=== PATIENT | male | born 1970 ===

== ENCOUNTER 2023-11-27 15:52 | Inpatient (IN) | payer BC, SELFPAY ==
[2023-11-27] VITALS (11 sets, daily range): BP systolic 111–135; BP diastolic 49–94; BMI 32.3
[2023-11-27 11:10] LABS: % Basophils 0.7 % (0-2); % Eosinophils 4.4 % (0-6); % Immature Granulocytes 1.1 % (0-0.5); % Lymphocytes 11.2 % (20.5-51.1); % Neutrophils 79.6 % (42.2-75.2); Absolute Basophils 0.1 10^3/uL (0-0.2); Absolute Eosinophils 0.3 10^3/uL (0-0.7); Absolute Immature Granulocytes 0.1 10^3/uL (0-0.05); Absolute Lymphocytes 0.8 10^3/uL (1.2-3.4); Absolute Monocytes 0.2 10^3/uL (0.1-0.6); Absolute Neutrophils 5.9 10^3/uL (1.4-6.5); Hematocrit 34.8 % (39.0-52.0); Hemoglobin 12.1 g/dL (13.0-18.0); Mean Corp Hgb Conc. 34.8 g/dL (33.0-37.0); Mean Corpuscular Hgb 28.5 pg (27.0-31.0); Mean Corpuscular Volume 81.9 fL (80.0-94.0); Mean Platelet Volume 10.3 fL (7.4-10.4); Nucleated Red Blood Cells % 0 % (-); Platelet Count 213 10^3/uL (130-400); Red Blood Cell Count 4.25 10^6/uL (4.70-6.10); Red Cell Dist. Width 14.6 % (11.5-14.5); White Blood Cell Count 7.4 10^3/uL (4.8-10.8)
--- NOTE | 2023-11-27 11:12 | ED.GENMED ---
History of Present Illness
General
Chief Complaint: Change in Mental Status
Source: patient and ambulance crew
Time Seen by Provider: 11/27/23 10:39
Travel History
Have you had any contact with someone who has COVID-19?: No
Do you have any symptoms of coronavirus? Fever > 100 degrees, chills, cough, shortness of breath, sore throat, loss of taste or smell, muscle aches, or headache?: No
History of Present Illness
History of Present Illness:
53-year-old male brought to the emergency room by ambulance for altered mental status. Patient is not really able to provide any significant history. He answers occasional questions but other questions he completely does not respond to. Unclear
the timeframe of symptomatology. Patient was hospitalized here in September for what appeared to be similar symptoms. No clear cause was identified but the patient improved over time. It appears the impression of the providers at that time was
depression and perhaps medication use. Patient does have a history of alcohol abuse. He has recently gone through rehab. Patient unable to tell us what medications he is taking presently. At times the patient seems to be fairly impulsive. Noted
also to have some facial tremors from time to time.
Past History
Past History
ED Past Medical History: Psychiatric (depression, anxiety) and Other (alcoholism)
Social History
Alcohol: Chronic alcoholic
Living: alone
Family History
Family History: Other (reviewed and non-contributory)
Phy Exam
Physical Exam
Physical Exam:
General: Awake, Alert, patient is oriented to person place and time actually. He seems somewhat disconnected and flat. Either cannot or chooses not to answer many questions. Disheveled appearing.
Vitals: Afebrile, normal heart rate
Head: Atraumatic
Eyes: Pupils equal, EOMI
Throat: Airway intact, no exudates, mildly dry mucosa
Neck: Trachea midline
Lungs: Clear and equal b/l
Heart: Regular rate, no murmurs
Abd: Soft, Nontender, No pulsatile mass
Neuro: Cranial nerves intact, muscle strength equal bilaterally, cerebellar exam normal
Skin: Warm, dry, no rash
Extremities: pulses equal b/l, no edema
Course
Orders/Labs/Results
Orders:
Orders
11/27/23 10:40
Electrocardiogram (*1) Urgent
Reason for Study: Chest Pain
Cardiac Monitoring- Treatment ONCE
IV Insert/Care/Rem.- Treatment PRN
11/27/23 10:41
EKG- Treatment ONCE
11/27/23 10:55
Acetaminophen Urgent
Comment: ADD ON
Alcohol Urgent
Complete Blood Count/With Diff Urgent
Comprehensive Metabolic Panel Urgent
Salicylate Urgent
Comment: ADD ON
11/27/23 10:56
COVID-19 Antigen Urgent
Source: Nasal Swab
Influenza A+B Rapid Molecular Urgent
BILLIE Source: Nasal Swab
Specimen Description:
11/27/23 11:10
Add On- LAB Urgent
Tests Added?: alcohol
11/27/23 11:11
CT Head W/o Iv Contrast Urgent
Comment:
Reason For Exam: altred mental status
Lorazepam [Ativan] 1 mg IV NOW STA
11/27/23 11:37
Add On- LAB Urgent
Tests Added?: acetaminophen level, aspirin level
11/27/23 11:42
DIETARY CONSULT Routine
Reason for Consult: not alert
Speech Screening from [facility] Routine
11/27/23 12:49
Fentanyl, Urine Urgent
Urinalysis Reflex To Culture Routine
Date Specimen was Collected: 11/27/23
Time Specimen was Collected: 12:49
Comment: ADD ON
Urine Drug Abuse Screen Urgent
Date Specimen was Collected: 11/27/23
Time Specimen was Collected: 12:49
11/27/23 15:11
MR Brain Without Contrast Routine
Comment:
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
Recent pill cam endoscopy?: No
11/27/23 15:15
Vitamin B12 IN AM
11/27/23 15:33
Admit/Transfer Patient As Directed
Co-Sign Provider:
Level of Care: Inpatient admission
Assign to:: Telemetry
Physician / Group: Yokasta Patricio oleists
Diagnosis: TME, unclear etiology
Reason for Telemetry: Other
Other Reason for Telemetry: hx of bradycardia
Date to Stop Telemetry: 11/29/23
Time to Stop Telemetry: 11:00
Reason for Hospitalization: TME, unclear etiology. Elevated LFTs
Expected length of stay greater than two midnights?: Yes
ELOS- Estimated Length of Stay in days: 2
I certify the patient meets the requirements for IP care: Yes
11/27/23 15:34
Code Status As Directed
Resuscitation Status: Full Code
11/27/23 15:41
US Abdomen Complete/Upper Routine
Comment:
Reason For Exam: elevated LFTs
11/27/23 15:41
Add On- LAB Routine
Tests Added?: UA reflex to culture (to UDS sample)
NEUROLOGY CONSULT Routine
Consulting Provider: Aime Woo
Was physician already notified: Yes
PSYCHIATRY CONSULT Routine
Consulting Provider: Jus Bridges
Was physician already notified: Yes
11/27/23 16:00
FOLic ACID [Folvite] 1 mg 0.9% Sodium Chloride 50 ml [Nss] 50 ml IV Q24H
Thiamine Injection 500 mg 0.9% Sodium Chloride 250 ml [Nss] 250 ml IV Q8
11/28/23 06:00
Ammonia IN AM
11/29/23 11:00
DC Protocol for Telemetry ONCE
Abnormal Lab Results
11/27/23 11/27/23
10:55 12:49
RBC 4.25 L 10^6/uL
(4.70-6.10)
Hgb 12.1 L g/dL
(13.0-18.0)
Hct 34.8 L %
(39.0-52.0)
RDW 14.6 H %
(11.5-14.5)
Abs Immat Gran (auto) 0.1 H 10^3/uL
(0-0.05)
Absolute Lymphs (auto) 0.8 L 10^3/uL
(1.2-3.4)
Immature Gran % 1.1 H %
(0-0.5)
Neutrophils % 79.6 H %
(42.2-75.2)
Lymphocytes % 11.2 L %
(20.5-51.1)
Sodium 134 L mmol/L
(135-145)
BUN 23 H mg/dl
(9-20)
Calcium 8.1 L mg/dl
(8.4-10.2)
AST 148 H U/L
(17-59)
ALT 509 H* U/L
(0-50)
Total Protein 6.1 L g/dl
(6.3-8.2)
Salicylates < 1.0 L mg/dl
(2.0-20.0)
Urine Opiates Screen Positive H
(Negative)
Acetaminophen < 10 L ug/ml
(10-30)
Ur Tricyclics Screen Positive H
(Negative)
U Marijuana (THC) Screen Positive H
(Negative)
11/27/23 10:55
11/27/23 10:55
Vital Signs
Initial and Last Documented VS:
Initial Vital Signs
Temp Pulse Resp BP Pulse Ox
99 F 76 18 119/81 95
03/11/24 10:42 11/27/23 10:42 11/27/23 10:42 11/27/23 10:42 11/27/23 10:42
Last Documented Vital Signs
Temp Pulse Resp BP Pulse Ox
99 F 77 17 120/49 98
11/27/23 10:42 11/27/23 14:20 11/27/23 14:20 11/27/23 14:03 11/27/23 14:20
MDM/Problems Addressed
Differential Diagnosis Includes:
Medication overdose, medication side effect, electrolyte abnormality, acute psychosis, complex seizures
MDM/Problems Addressed:
Patient's family here in the room. They note the patient had a bottle of by getting in his room. Unclear if he took any. Patient also mention of him he was taking a 'herbal substance' Kratom. I did check [employer] and it notes that this
medication can cause opiate like effects but can also cause stimulant effects as well as stuporous nests and confusion. Discussed the patient's presentation with poison center. No specific recommendations. Given his elevated ALT at 500 recommend
repeating this in 6 hours. Consider late presentation acetaminophen overdose if this continues to rise.
Patient will be hospitalized to the hospitalist service. Neurology consultation requested as well.
*Radiology
Radiology exam reviewed: radiology read reviewed
*Pulse Oximetry
Patient hypoxic: no
*EKG
Interpreted by ED Provider?: Yes
Interpretation: normal
Rate: normal
Rhythm: sinus
[place]: normal axis
Interval: normal interval
QRS Pattern: normal QRS
Ischemia: no ischemia
*Chemical Librarian Interpretation
Rate: normal
Interpretation: normal
Rhythm: sinus
*Critical Care Note
Total Time (30-74mins, 75-104mins- exclusive of procedures): 35 min
comment:
Critical care statement: A total of 35 minutes of critical care time was provided for this patient. This includes management of unstable vital signs, evaluation of the patient at bedside, reviewing the patient's pertinent medical records, discussion
with consultants, review of old EKGs and review of pertinent medical records. This time with separate from time utilized to perform the aforementioned documented procedures
ED Attending Note
-
Portions of this chart may have been created with voice recognition software.� Occasional wrong word or��sound alike� substitutions may have occurred due to the inherent limitations of voice recognition software.
Discharge Plan
Departure
Patient Disposition: Admit
Date of Disposition: 11/27/23
Time of Disposition: 13:58
Admit to: IMU
Presentation/result/management discussed w/ accepting MD/DO: Hospitalist
Condition: Serious
Discharge Problem:
Toxic metabolic encephalopathy
Prescriptions:
No Action
escitalopram oxalate 20 mg tablet
20 mg PO DAILY
doxepin 10 mg capsule
30 mg PO HS
propranolol 20 mg Tablet
20 mg PO QIDPRN PRN (Reason: anxiety)
bupropion HCl 300 mg tablet extended release 24 hr
300 mg PO DAILY
omeprazole 40 mg Capsule,Delayed Release(Dr/Ec)
40 mg PO DAILY
amlodipine [Norvasc] 10 mg Tablet
10 mg PO DAILY
Caffeine With L-Thaenine
100 mg PO DAILY
Red Vein Maengda Kratom
72 g PO DAILY
acamprosate 333 mg Tablet,Delayed Release (Dr/Ec)
333 mg PO TID
Referrals:
Haider Anderson MD [Family Provider] -
Interventions
Interventions:
*Risk Screen - Suicide Last Done: 11/27/23 10:42
*General Assessment Last Done: 11/27/23 13:02
*Neglect/Abuse Screening Last Done: 11/27/23 10:42
ED- Fall Risk Assessment Last Done: 11/27/23 11:44
*ED COVID-19 Vaccine History Last Done: 11/27/23 13:02
ED- Pulmonary Assessment Last Done: 11/27/23 11:45
ED- Neurological Assessment Last Done: 11/27/23 11:39
ED Swallowing Screen Last Done: 11/27/23 11:39
[2023-11-27 11:26] LABS: ALT (SGPT) 509 U/L (0-50); AST (SGOT) 148 U/L (17-59); Albumin 3.6 g/dl (3.5-5.0); Alkaline Phosphatase 112 U/L (38-126); Blood Urea Nitrogen 23 mg/dl (9-20); Calcium 8.1 mg/dl (8.4-10.2); Carbon Dioxide 26 mmol/L (22-30); Chloride 101 mmol/L (98-107); Estimated Creatinine Clearance 82 ml/min; Glucose 78 mg/dl (70-99); Potassium 3.6 mmol/L (3.5-5.1); Sodium 134 mmol/L (135-145); Total Bilirubin 0.9 mg/dl (0.2-1.3); Total Protein 6.1 g/dl (6.3-8.2); eGFR > 60.00
[2023-11-27 11:27] LABS: COVID-19 Antigen Negative (Negative)
[2023-11-27] MEDS: ATIVAN 1 MG IV ×3 (11:28→19:19)
[2023-11-27 11:41] LABS: Alcohol None Detected
--- NOTE | 2023-11-27 11:48 | PHANOTE ---
med rec note- called bath on file, a man answered the phone and asked if i was calling for tomy (Luis), yes and asked him to read his home medication bottles, patient has no ecw and using [facility] in [facility]
[2023-11-27 12:15] LABS: Acetaminophen < 10 ug/ml (10-30)
[2023-11-27 12:22] LABS: Salicylate < 1.0 mg/dl (2.0-20.0)
--- NOTE | 2023-11-27 12:40 | EDRN ---
Pt got up and moving all over, placing leg over and very active. Pt told to relax and now calm.
--- NOTE | 2023-11-27 12:52 | EDRN ---
Mother and sister just came and are in room w/ pt at this time. One to One continues w/ Ashvin. Pt having periods of increased movement then stopping. Pt mumbling in answer to questions and mumbling conversation.
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
[2023-11-27 13:27] LABS: Marijuana Positive (Negative); Opiates Positive (Negative); Tricyclic Antidepressants Positive (Negative)
[2023-11-27 13:28] LABS: Amphetamines Negative (Negative); Barbiturates Negative (Negative); Benzodiazepines Negative (Negative); Buprenorphine Negative (Negative); Cocaine Negative (Negative); Methadone Negative (Negative); Methamphetamines Negative (Negative); Phencyclidine Negative (Negative)
[2023-11-27 13:46] LABS: Fentanyl, Urine Negative (Negative)
--- NOTE | 2023-11-27 14:22 | EDRN ---
Pt attempting to get OOB thinking pt wanting to go to [facility]. This RN got a commode and got pt OOB w/ max help of Ashvin ED PCT and maximum assist. Pt attempting to get up periodically and having to constantly redirect pt. Pt unable to sit still on
commode. Pt very unsteady on his feet and a true risk for falling. Pt had to be guided back to stretcher w/ strong insistence. Pt grabbing at this nurse's and ED PCT's arms in aggressive manner. Pt not safe to get OOB at this time.
--- NOTE | 2023-11-27 14:24 | EDRN ---
Dr. Major in room w/pt at this time.
--- NOTE | 2023-11-27 14:53 | EDRN ---
Dr. Woo in room w/ pt.
--- NOTE | 2023-11-27 14:57 | HPS.HSE ---
Family Physician
-
Family Physician: Haider Anderson
Chief Complaint
-
change in mental status
History of Present Illness
53 y/o M, hx of HTN, hx of Alcohol abuse in the past presents to ER with altered mental status. Patient was brought in by his mother and brother whom he lives with. Patient not able to provide history. At times he can answer some questions but other
times he cannot. Per family, patient was doing well back in August but unfortunately the father . Leading up the , patient was engaged and helpful but shortly after burial, patient was admitted to [facility] with change in MS,
attributed to Kratom plus other medications. Patient had slow improvement during that hospitalization and was discharged to [facility]hab. At IP rehab - he was prescribed meds which were stopped in hospital (doxepin, Propranolol, Bupropion). Patient was
released home and family reports seemingly ok. Day to day patient lives in basement and family is unsure of what meds/substances he purchases but have found packages of CBD gummies and Kratom in the home. This past week, starting Monday, patient
reported URI symptoms - family provided Mucinex with adequate relief of symptoms. Patient also had headache that time. He started to show change in mentation around Monday. No seizure like activity, no focal weakness, vision or speech changes
were noted by family. had a few bouts of diarrhea but no abdominal pain. No fever/chills.
Patient brought to ER and found in UDS to have Doxepin, MJ and opiates. Patient is not on opiates and had a bottle of Vicodin in his belongings - belongs to his mother. Family unsure if he is ingesting or how much. Also found to have elevated LFTs -
patient admitted for further eval.
Medical History
Past Medical History
Past Medical History: Reports Other (HTN, hx of Alcohol abuse)
Past Surgical History: Reports None
Social History
Tobacco: Non-smoker
Alcohol: Chronic Alcoholic
Drug: Other (CBD gummies, Kratom)
Personal: (living separately, 2 kids)
Living: With Family (mother, brother)
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
Family History
Family History: Not pertinent
Allergies / Home Medications
Allergies reflects when Allergies were last updated in [employer].
Home Medications with original date entered in [employer]
Allergy/Medication List:
Allergies
Allergy/AdvReac Type Severity Reaction Status Date / Time
No Known Allergies Allergy Unverified 11/27/23 10:41
Home Medications
escitalopram oxalate 20 mg tablet 20 mg PO DAILY Depression 09/29/23
Caffeine With L-Thaenine 100 mg PO DAILY 11/27/23
Red Vein Maengda Kratom 72 g PO DAILY 11/27/23
acamprosate 333 mg tablet,delayed release 333 mg PO TID 11/27/23
amlodipine 10 mg tablet (Norvasc) 10 mg PO DAILY 11/27/23
bupropion HCl 300 mg 24 hr tablet, extended release 300 mg PO DAILY 11/27/23
doxepin 10 mg capsule 30 mg PO HS 11/27/23
omeprazole 40 mg capsule,delayed release 40 mg PO DAILY 11/27/23
propranolol 20 mg tablet 20 mg PO QIDPRN PRN anxiety 11/27/23
Review of Systems
-
A 12 point ROS was completed and negative except as noted: Yes
Physical Exam
Vital Signs
Vital Signs
Temp Pulse Resp BP Pulse Ox
99 F 77 17 120/49 98
11/27/23 10:42 11/27/23 14:20 11/27/23 14:20 11/27/23 14:03 11/27/23 14:20
Physical Exam
General: No Apparent Distress and Other (flat/disconnected)
HEENT: NormoCephalic and Anicteric
Respiratory: Clear; No Wheezes, Rales or Rhonchi
Cardiac: S1/S2 and Regular Rhythm
GI: Soft, Non Tender and Non Distended
Neuro: Awake, Alert and Oriented (not oriented)
Psych: Agitated (trying to get out of bed)
Laboratory Results
-
11/27/23 10:55
11/27/23 10:55
Laboratory Results
Total Bilirubin 0.9 mg/dl (0.2-1.3) 11/27/23 10:55
AST 148 U/L (17-59) H 11/27/23 10:55
ALT 509 U/L (0-50) H* 11/27/23 10:55
Alkaline Phosphatase 112 U/L (38-126) 11/27/23 10:55
Data Reviewed
-
Lab Data: Labs Reviewed by me, Discussed with Physician (Neurology), Discussed with Nurse and Discussed with Patient
Impression/Plan
-
Assessment:
Change in mental status
TME likely in setting of substances (CBD Gummies, Kratom)
- OBS admit
- stop CBD gummies, Kratom - advised family to confiscate items at home, consider contacting [employer] to stop shipments
- UDS + for TCA, opiates, MJ consistent with known/suspected abuse per HPI
- consider EEG
- check MRI brain w and w/o contrast. CT head was negative.
- check UA/Ucx. if febrile, broaden workup to include Bcx and CXR. D/w Neuro no indication for LP.
- Neurology consulted
- IV thiamine, and IV Folate added
Elevated LFTs
- Vicodin bottle found in belongings, unknown ingestion
- ER d/w Toxicology; could represent delayed acetaminophen poisoning
- repeat LFTs in 6 hours; if rising, consider GI Eval/NAC
- trend LFTs daily
- check US Abdomen
? Depression
- family notes his initial episode started after of father
- hold Doxepin/Lexapro/Bupropion
- consult psych
Essential HTN
- continue Norvasc
- Propranolol previously stopped in hospital for bradycardia; hold for now
GERD - PPI
DVT ppx: Lovenox
Code: Full
--- NOTE | 2023-11-27 15:02 | CON.NEURO4 ---
Consultation - Neurology 4
-
CONSULTING PHYSICIAN: Alina Woo
REFERRING PHYSICIAN: ER
DICTATED BY: Alina Woo
DATE/TIME OF REQUEST: 11/27/23
DATE/TIME OF CONSULTATION: 11/27/23
Reason for Consultation: Encephalopathy
History of Present Illness:
fo patient is a 53-year-old male with past medical history of former alcohol abuse, depression, previous hospitalization in September for what was suspected to be most likely toxic metabolic encephalopathy possibly with toxic ingestion involved
presented to hospital with encephalopathy.
Patient's family at the bedside said that he did improve after this hospitalization and did go to a rehab for substance use. Had been living on his home afterwards and had been taking medications on his own. It was noticed by his that there
was Kratom bottle in a trash can and besides this otherwise patient seem to be taking his scheduled medications.
Patient's mental status seem to change around 8 days ago and over the past couple of days has had bizarre behaviors, has remained awake and not drowsy lethargic, speaks in short sentences and has not been showering or doing normal activities of
daily living.
No weakness of the face or limbs has been known patient has been able to walk around okay.
His family is notes that they have not suspected he has been drinking any alcohol.
Urine drug screen positive for TCA's, THC, opiates.
Past Medical History: Former alcohol abuse, depression, hypertension
Surgical History: None
Social History: , currently living with extended family, his father passed last winter, former alcohol abuse, no tobacco, history of Kratom use
Family History: Non-contributory
Review of Symptoms:
Unable to obtain with mental status
Physical Exam:
Middle-age man obese appears confused no acute distress no signs of head or neck trauma no meningismus eyes are clear oropharynx is clear neck with no masses heart rate regular breathing unlabored abdomen is obese soft nontender no lower extremity
edema
Neurologic Examination:
Patient is awake and alert he does say his name and obey some simple commands intermittently, he occasionally has some random purposeless movements moving around in bed, at 1 point he appears to be blowing air in my face and demonstrating some
bizarre behavior, he does track the examiner and attends to the examiner and does shake my hand as I said goodbye. It does appear like he might be responding to internal thoughts. No overt delusions or hallucinations.
Pupils are 3 mm equal round reactive light bilaterally, resting gaze midline extraocular's are normal smile is symmetric no dysarthria tongue is midline.
Motor function shows no ataxia and no strength deficits and spontaneous movements moves all limbs with 5/5 strength and symmetric manner normal muscle bulk and tone no abnormal movements or tremors seen no parkinsonism.
Intact in all extremities to noxious stimulation.
Reflexes are 2+ and symmetric throughout
Gait exam deferred
Neuro Imaging: CT head no acute abnormalities
Impressions
1. Suspicion for toxic ingestion and/or polypharmacy. Suspect may have had further Kratom ingestion in addition to normal medications which include TCA, opiates, and THC. Vital signs, absence of hyperreflexia argue against a serotonin syndrome.
2. History of depression, possibility for psychiatric component of his presentation but is felt less likely
Recommendations:
1. Provide IV thiamine and Folate
2. 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
3. Check MRI of the brain without contrast
4. Follow LFT's and basic workup for this per hospitalist
5. Okay from my standpoint to continue Buproprion and Doxepin and SSRI
6. Check Ammonia, B12, CK
Discussed patient care with: Patient's family, hospitalist
[2023-11-27 16:05] LABS: Urine Albumin Trace (Neg - Trace); Urine Bilirubin Negative (Negative); Urine Character Clear (Clear); Urine Color Yellow; Urine Glucose Negative (Negative); Urine Ketone Negative (Negative); Urine Leukocyte Trace (Negative); Urine Nitrite Negative (Negative); Urine Occult Blood Negative (Negative); Urine Urobilinogen Negative (Neg - 1+)
[2023-11-27 16:13] LABS: Urine Red Blood Cell None Seen /HPF (0-2); Urine Squamous Cell 0-2 /LPF (Few); Urine White Cell 0-2 /HPF (0-5)
--- NOTE | 2023-11-27 16:47 | EDRN ---
Pt becoming more agitated and frequently attempting to get OOB. Pt is very confused and when two techs attempted to assist pt to commode pt was very unsteady and almost fell during transfer to and from commode. Pt once on commode did nothing on the
commode, was very confused and kept attempting to get up. This RN TT'd Dr. Patricio at this time. This RN also spoke to Hallie Crowley District Branch Manager, Rebeca, and Li bed coordinator about pt's safety on the admission floor.
--- NOTE | 2023-11-27 16:51 | EDRN ---
Pharmacy called to mix and send thiamine and folvite iv infusions at this time.
[2023-11-27] MEDS: FOLVITE 50.2000000000000028 MG IV (17:00)
[2023-11-27] MEDS: NSS (PRESERVATIVE FREE) 0.5 ML IV (17:06)
[2023-11-27] MEDS: THIAMINE INJECTION 255 MG IV (17:40)
--- NOTE | 2023-11-27 17:45 | EDRN ---
Pt remains sitting up w/ redirection almost constantly at this time. Pt also grabbing side rails which were covered w/ seizure pads so pt does not harm himself on bedside rails.
[2023-11-27] MEDS: LOVENOX 40 MG SC (19:19)
[2023-11-27] MEDS: NSS 1000 IV (19:22)
[2023-11-27 19:49] LABS: ALT (SGPT) 436 U/L (0-50); AST (SGOT) 113 U/L (17-59); Albumin 3.5 g/dl (3.5-5.0); Alkaline Phosphatase 95 U/L (38-126); Blood Urea Nitrogen 16 mg/dl (9-20); Carbon Dioxide 28 mmol/L (22-30); Chloride 103 mmol/L (98-107); Estimated Creatinine Clearance > 125 ml/min; Glucose 80 mg/dl (70-99); Potassium 3.7 mmol/L (3.5-5.1); Sodium 137 mmol/L (135-145); Total Bilirubin 0.8 mg/dl (0.2-1.3); Total Protein 5.8 g/dl (6.3-8.2); eGFR > 60.00
[2023-11-27 19:52] LABS: TSH Reflex To Free T4 1.69 uIU/ml (0.47-4.68)
[2023-11-27 20:11] LABS: Vitamin B12 673 pg/ml (239-931)
[2023-11-28] VITALS (13 sets, daily range): BP systolic 112–156; BP diastolic 69–94; BMI 31.2
[2023-11-28] MEDS: THIAMINE INJECTION 255 MG IV ×4 (03:43→23:03)
[2023-11-28] MEDS: ATIVAN 1 MG IV ×2 (05:18→20:48)
[2023-11-28 05:29] LABS: Hematocrit 35.4 % (39.0-52.0); Hemoglobin 12.3 g/dL (13.0-18.0); Mean Corp Hgb Conc. 34.7 g/dL (33.0-37.0); Mean Corpuscular Hgb 28.8 pg (27.0-31.0); Mean Corpuscular Volume 82.9 fL (80.0-94.0); Mean Platelet Volume 10.1 fL (7.4-10.4); Platelet Count 205 10^3/uL (130-400); Red Blood Cell Count 4.27 10^6/uL (4.70-6.10); Red Cell Dist. Width 14.6 % (11.5-14.5); White Blood Cell Count 5.2 10^3/uL (4.8-10.8)
[2023-11-28 05:48] LABS: Ammonia < 9 umol/L (9-30)
[2023-11-28 05:51] LABS: ALT (SGPT) 405 U/L (0-50); AST (SGOT) 105 U/L (17-59); Albumin 3.5 g/dl (3.5-5.0); Alkaline Phosphatase 95 U/L (38-126); Blood Urea Nitrogen 13 mg/dl (9-20); Carbon Dioxide 25 mmol/L (22-30); Chloride 108 mmol/L (98-107); Estimated Creatinine Clearance > 125 ml/min; Glucose 73 mg/dl (70-99); Potassium 3.9 mmol/L (3.5-5.1); Sodium 138 mmol/L (135-145); Total Bilirubin 0.8 mg/dl (0.2-1.3); Total Protein 5.9 g/dl (6.3-8.2); eGFR > 60.00
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
[2023-11-28] MEDS: PROTONIX 40 MG PO (09:02)
[2023-11-28] MEDS: NORVASC 10 MG PO (09:02)
--- NOTE | 2023-11-28 09:10 | PTCARENOTE ---
Patient back from MRI. Patient remains NPO until evaluated by speech therapist. Patient drowsy. He is arousable but falls back asleep immediately. Restless at times, nonpurposeful movements. Used urinal in bed with assistance.
--- NOTE | 2023-11-28 10:01 | PTOTSP ---
Speech Therapy Swallowing Assessment
Lethargy is main contributing factor to safety with intake. When alert, the patient tolerated soft solids and thin liquids without signs of aspiration. Dry solids elicited coughing episodes that may have been related to xerostomia.
Recommend
1. Feed only when alert
2. IDDSI level 6 (soft and bite-sized) and Thin Liquids
3. Meds whole in applesauce as needed
4. Supervision and assist with feeding.
5. Aspiration precautions.
ST to follow to advance diet as indicated. Assess cognitive communication skills as needed once suspected TME resolves. Patient may benefit from comprehensive assessment of cognitive communication skills upon discharge pending medical course
including any pysch diagnosis/recommendations.
[2023-11-28] MEDS: FLUSH (NSS) 1 FLUSH IV ×3 (10:02→16:41)
--- NOTE | 2023-11-28 10:44 | W.PN.NEURO.1 ---
Today's Communication / Plan
-
Provide IV thiamine and Folate
continue Buproprion and Doxepin and SSRI
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
Neuro Assessment/Plan
Assessment
Impressions
1.� � Suspicion for toxic ingestion and/or polypharmacy.� Suspect patient may have had further Kratom ingestion in addition to normal medications which include TCA, opiates, and THC.� Vital signs, absence of hyperreflexia argue against a serotonin
syndrome.
2.� � History of depression, possibility for psychiatric component of his presentation but is felt less likely
Plan
Recommendations:�
Provide IV thiamine and Folate
continue Buproprion and Doxepin and SSRI
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
Will follow as needed. Please contact us with additional questions or issues
Subjective/Objective
Subjective Data
Date of Service: November 28, 2023
Objective Data
Vital Signs
Temp Pulse Resp BP Pulse Ox
36.8 C 77 9 123/78 95
11/28/23 07:28 11/28/23 09:45 11/28/23 09:45 11/28/23 08:58 11/28/23 09:45
Lab Results
11/28/23 05:17
11/28/23 05:17
Sodium 138 mmol/L (135-145) 11/28/23 05:17
Potassium 3.9 mmol/L (3.5-5.1) 11/28/23 05:17
BUN 13 mg/dl (9-20) 11/28/23 05:17
Glucose 73 mg/dl (70-99) 11/28/23 05:17
Calcium 8.0 mg/dl (8.4-10.2) L 11/28/23 05:17
Vitamin B12 673 pg/ml (239-931) 11/27/23 18:40
Ur Buprenorphine Negative (Negative) 11/27/23 12:49
Patient Allergies
No Known Allergies Allergy (Unverified 11/27/23 10:41)
Data Reviewed
-
MRA Head: Report Reviewed
Labs: Report Reviewed
Reviewed with: Physician and Nurse Practioner
Old Records: Summarized
--- NOTE | 2023-11-28 11:31 | CS.PSYCHR ---
Consult Summary - Psychiatry
-
Pt is 53 y/o male, who presented to ER brought in by family with altered mental status, very lethargic. Per family, patient was doing well back in August until his father . Shortly after the , pt was admitted to [facility]
with change in MS, attributed to Kratom plus other medications. Patient had slow improvement during that hospitalization and was discharged to [facility]. At [facility]hab pt reportedly was resumed on meds that had been held in hospital (doxepin,
Propranolol, Bupropion). 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 UDS was positive for opiates, TCA, THC. Pt
seen by Psychiatry during previous admission Sep 2023 noted above, with similar presentation. Pt currently continues to be obtunded, wakes with sternal rub, makes eye contact briefly then falls back asleep. Pt stated he came here with 'some
symptoms', not able to give any history.
PMH: HTN, Alcohol use
Psych Hx: remains unclear. Has been prescribed Lexapro, Wellbutrin XL, Doxepin, agents to prevent alcohol use- Vivitrol, Antabuse, Campral
SH: , 2 children; pt resides in basement of home with mother and brother, who reported finding packages of Kratom and CBD gummies. Pt noted with bottle of Vicodin in his belongings- reportedly mother's Rx. 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
MSE: lethargic/obtunded, sleeping. Oriented to name, , hospital per staff. No distress when awakened, no signs of psychosis, speech quickly becomes rambling/mumbling as pt dozes off. No agitation or restlessness.
Imp: Delirium, etiology unclear, suspect combination of prescribed medications and substance use
Polysubstance use: Cannabis, Kratom, Rx opioid; hx of alcohol use
Rec: Hold sedating/anticholinergic agents. Will reassess psychotropic medication regimen when mental status clears
Will follow
--- NOTE | 2023-11-28 14:12 | W.PN.HOSP.TC ---
Today's Communication/Plan
-
monitor mentation
follow LFTS, Abd US
Assessment / Plan
Assessment / Plan
Assessment:
Change in mental status
TME likely in setting of substances (CBD Gummies, Kratom)
- stop CBD gummies, Kratom - advised family to confiscate items at home, consider contacting supplying company to stop shipments
- UDS + for TCA, opiates, MJ consistent with known/suspected abuse per HPI
- MRI brain without acute findings. CT head was negative.
- UA negative. if febrile, broaden workup to include Bcx and CXR. D/w Neuro no indication for LP.
- Neurology following
- IV thiamine, and IV Folate added
Elevated LFTs
- Vicodin bottle found in belongings, unknown ingestion
- ER d/w Toxicology; could represent delayed acetaminophen poisoning
- repeat LFTs are improving slowly; continue trends
- check US Abdomen
? Depression
- family notes his initial episode started after of father
- hold Doxepin/Lexapro/Bupropion
- consult psych to help solidify regimen
Essential HTN
- continue Norvasc
- Propranolol previously stopped in hospital for bradycardia; hold for now
GERD - PPI
DVT ppx: Lovenox
Code: Full
Anticipated Discharge: 24 - 48 hours
Subjective/Interval History
-
Date of Service: November 28, 2023
more alert today
he is not able to provide further history about his presenting symptoms
Objective Data
-
Labs:
Laboratory Results
11/28/23
05:17
WBC 5.2
Hgb 12.3 L
Hct 35.4 L
Plt Count 205
Sodium 138
Potassium 3.9
Chloride 108 H
Carbon Dioxide 25
BUN 13
Creatinine 0.7
Glucose 73
Calcium 8.0 L
Total Bilirubin 0.8
AST 105 H
ALT 405 H
Alkaline Phosphatase 95
Vital Signs:
Vital Signs
Temp Pulse Resp BP Pulse Ox
98.4 F 72 12 118/87 95
11/28/23 11:19 11/28/23 12:03 11/28/23 12:03 11/28/23 12:03 11/28/23 11:15
I&O
11/27/23 11/28/23 11/29/23
06:59 06:59 06:59
Intake Total 555 / 555
Output Total 250 / 250 1385 / 1385
Balance -250 / -250 -830 / -830
Physical Exam
-
General: No Apparent Distress
HEENT: Normocephalic and Atraumatic
Respiratory: Negative Wheezes or Rales
Cardiac: Regular Rhythm and S1/S2
GI: Soft and Nontender
Neuro: AO x 3
Data Reviewed
-
Total Time Spent with Patient (in minutes): 42
Labs: Labs Reviewed by me
--- NOTE | 2023-11-28 15:17 | PTCARENOTE ---
1:1 supervision d/c as per MD. Patient is alert and awake with some confusion. Unsteady on his feet and impulsive at times. Bed alarm on for fall risk. Patient tolerated some lunch with IDDSI level 6 diet. Speech recommends aspiration
precautions and supervision with meals. Vitals remain stable. Will continue to monitor frequently.
--- NOTE | 2023-11-28 15:50 | CM ---
international accounting manager reviewed patient's chart and met with patient and patient lives with his mother and brother in a multilevel home with 15 steps to enter, patient was independent with adl's and ambulation. Patient with possible polysubstance abuse and
was recent treated at [facility].
Pharmacy [facility]
PCP: Dr. Anderson.
Plan; Await for patient to be more alert to discuss possible treatment options.
[2023-11-28] MEDS: FOLVITE 50.2000000000000028 MG IV (16:41)
[2023-11-28] MEDS: LOVENOX 40 MG SC (16:56)
[2023-11-28] MEDS: NSS (PRESERVATIVE FREE) 0.5 ML IV (20:49)
--- NOTE | 2023-11-28 23:44 | PTCARENOTE ---
assumed care of patient, pt is AAOx3- forgetful but able to make needs known. pt with some attempts to get OOB without using call lima, bed alarm on. pt easily redirected and placed back to bed. pt slightly anxious, given IV ativan with positive
effect. pt wash up for bed. pt tele level of care- awaiting transfer.
[2023-11-29] VITALS: BP 117/80
--- NOTE | 2023-11-29 01:06 | PTCARENOTE ---
Pt arrived from IMU via w/s. Pt is calm AAOx3. Pt placed on tele, oriented to room, and shown call lima. Bed alarm active and in place.
[2023-11-29 01:17] VITALS: BP 131/85
[2023-11-29 03:19] VITALS: BP 125/79
[2023-11-29] MEDS: TUMS 1 TABLET PO ×2 (03:38→09:27)
[2023-11-29] MEDS: TYLENOL 650 MG PO (04:28)
[2023-11-29 05:03] LABS: Hematocrit 36.2 % (39.0-52.0); Hemoglobin 12.5 g/dL (13.0-18.0); Mean Corp Hgb Conc. 34.5 g/dL (33.0-37.0); Mean Corpuscular Volume 81.2 fL (80.0-94.0); Mean Platelet Volume 10.1 fL (7.4-10.4); Platelet Count 231 10^3/uL (130-400); Red Blood Cell Count 4.46 10^6/uL (4.70-6.10); Red Cell Dist. Width 14.3 % (11.5-14.5); White Blood Cell Count 6.3 10^3/uL (4.8-10.8)
[2023-11-29 05:49] LABS: ALT (SGPT) 291 U/L (0-50); AST (SGOT) 51 U/L (17-59); Albumin 3.4 g/dl (3.5-5.0); Alkaline Phosphatase 94 U/L (38-126); Blood Urea Nitrogen 9 mg/dl (9-20); Calcium 8.7 mg/dl (8.4-10.2); Carbon Dioxide 22 mmol/L (22-30); Chloride 103 mmol/L (98-107); Estimated Creatinine Clearance > 125 ml/min; Glucose 87 mg/dl (70-99); Sodium 135 mmol/L (135-145); Total Bilirubin 0.6 mg/dl (0.2-1.3); Total Protein 5.8 g/dl (6.3-8.2); eGFR > 60.00
[2023-11-29 06:00] VITALS: BMI 30.7
[2023-11-29 07:10] VITALS: BP 130/89
[2023-11-29] MEDS: NORVASC 10 MG PO (08:30)
[2023-11-29] MEDS: PROTONIX 40 MG PO (08:30)
[2023-11-29] MEDS: THIAMINE INJECTION 255 MG IV (08:30)
--- NOTE | 2023-11-29 10:44 | PN.CDI ---
CDI
- -
CDI:
Physician Documentation Request
Admit Date: 11/27/23 15:52
Dear Doctor Sintia,
Please review the following and provide your response in the progress notes.
Clinical Indicators:
The diagnosis of chronic intraparenchymal hemorrhage was included in the signed 11/27 Brain MRI
- 11/27 MRI Brain '4.5 mm calcification or chronic intraparenchymal hemorrhage in the superior left parietal lobe which is unchanged'
Please indicate in your progress notes if you are in agreement that the above diagnosis is valid for this patient:
____ - Chronic intraparenchymal hemorrhage is a valid diagnosis (Please include it in your progress notes)
____ - Chronic intraparenchymal hemorrhage is not a valid diagnosis for this patient
____ - Other
Use of terms such as suspected, likely, concern for, or probable are acceptable for a diagnosis that is being evaluated, monitored or treated as if it exists and can be coded in the inpatient setting, when documented at the time of discharge.
Thank you,
Javier Castillo RN
CDI Specialist
Please use your independent medical judgment in providing your response.
[2023-11-29 11:20] VITALS: BP 135/86
--- NOTE | 2023-11-29 11:55 | W.PN.UPDATE ---
Update Note
Progress Note Update
patient seen chart reviewed. spoke with nursing. mr weaver is known to me from a prior visit to . he was here in september under very similar circumstances. he was admitted w change in mental status. . he cleared for the most part as he seems to
be doing at this point. he told me today he was attending [facility] had a sponsor and was going to out pt rx at [facility]. despite this he used 'a few times' noted opiates tca and cannabis in uds. he says he uses to escape the pressures of his life
but then backtracked and said actually things are better for him now than they were. he has had 12 years of sobriety in the past. we talked about what else he can do....think about and talk about relapse triggers....make an 'escape plan ' when he
feels like using. he is in therapy for substance abuse but it sounds like he needs a bit more concrete planning about the mechanics of achieiving sobriety he takes a number of psych meds prescribed by his pcp. not clear to me given hx what they
are actually doing for him. suggested he consider seeing a psychiatrist and gave him suggestions. would not restart his psych meds yet. he should see his out pt provider to discuss. he is hoping for dc today. that is up to his hospitalist but from
psych perspective he can leave.
--- NOTE | 2023-11-29 13:19 | W.PN.HOSP.TC ---
Addendum entered and electronically signed by Yokasta Patricio MD 11/29/23 13:38:
Chronic intraparenchymal hemorrhage
Original Note:
Today's Communication/Plan
-
dc home
Assessment / Plan
Assessment / Plan
Assessment:
Change in mental status
TME likely in setting of substances (CBD Gummies, Kratom)
- stop CBD gummies, Kratom - advised family to confiscate items at home, consider contacting [employer] to stop shipments
- UDS + for TCA, opiates, MJ consistent with known/suspected abuse per HPI
- MRI brain without acute findings. CT head was negative.
- UA negative. if febrile, broaden workup to include Bcx and CXR. D/w Neuro no indication for LP.
- Neurology following
- s/p thiamine/folate IV; prescribe oral on dc
Elevated LFTs
- Vicodin bottle found in belongings, unknown ingestion
- ER d/w Toxicology; could represent delayed acetaminophen poisoning
- repeat LFTs are improving slowly; continue trends
- US Abdomen; limited views but no gross abnormalities
? Depression
- family notes his initial episode started after of father
- hold Doxepin/Lexapro/Bupropion per psych until he can be re-evaluated for PCP/Psych outpatient
Essential HTN
- continue Norvasc
- Propranolol previously stopped in hospital for bradycardia; hold for now
GERD - PPI
DVT ppx: Lovenox
Code: Full
More than 30 minutes spent in discharge including
Final examination of the patient
Summarizing hospital stay
Instructions for continuing care to all relevant caregivers
Preparation of discharge records, prescriptions, and referral forms
Total time spent (in minutes):41
Anticipated Discharge: Today
Subjective/Interval History
-
Date of Service: November 29, 2023
more alert today
states he is agreeable to psych plans to stop his meds and re-evaluate with PCP/Psych outpatient also agrees to stop Kratom/CBD
Objective Data
-
Labs:
Laboratory Results
11/29/23
04:32
WBC 6.3
Hgb 12.5 L
Hct 36.2 L
Plt Count 231
Sodium 135
Potassium 4.0
Chloride 103
Carbon Dioxide 22
BUN 9
Creatinine 0.7
Glucose 87
Calcium 8.7
Total Bilirubin 0.6
AST 51
ALT 291 H
Alkaline Phosphatase 94
Vital Signs:
Vital Signs
Temp Pulse Resp BP Pulse Ox
98.1 F 74 18 135/86 96
11/29/23 11:20 11/29/23 11:20 11/29/23 11:20 11/29/23 11:20 11/29/23 11:20
I&O
11/28/23 11/29/23 11/30/23
06:59 06:59 06:59
Intake Total 1715 / 1715
Output Total 250 / 250 3625 / 3625
Balance -250 / -250 -1909 / -1909
Physical Exam
-
General: No Apparent Distress
HEENT: Normocephalic and Atraumatic
Respiratory: Negative Wheezes or Rales
Cardiac: Regular Rhythm and S1/S2
GI: Soft and Nontender
Musculoskeletal: No Edema
Neuro: AO x 3
Hematologic / Lymphatic: No Lymphadenopathy
Psych: Calm
Data Reviewed
-
Total Time Spent with Patient (in minutes): 42
Labs: Labs Reviewed by me
--- NOTE | 2023-11-29 13:37 | W.DS.TRANS ---
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
-
Discharge Instructions:
Discharge Diagnosis/Procedures change in mental status, CBD and Kratom
substance related
Diet Regular
Activity As tolerated
Bathing Restrictions None
Instructions:
Stand-Alone Forms:
Changes to Home Medications: No
Discharge Medications:
DC Medications w/original date entered in [employer]
acamprosate 333 mg tablet,delayed release 333 mg PO TID alcohol use disorder 11/27/23
amlodipine 10 mg tablet (Norvasc) 10 mg PO DAILY Blood Pressure 11/27/23
omeprazole 40 mg capsule,delayed release 40 mg PO DAILY Gastrointestinal Issue 11/27/23
folic acid 1 mg tablet 1 mg PO DAILY #100 tabs 11/29/23
thiamine HCl (vitamin B1) 100 mg tablet 100 mg PO DAILY #100 tabs 11/29/23
Home Medication Changes
Pending Results: No
Total time spent discharging patient (in min): 41
--- NOTE | 2023-11-29 13:40 | CM ---
Reviewed the chart notes and spoke with the patient at the bedside. Provided the patient with a list of area PCPs. The patient's sister will be providing transportation to home. CM continues to be available to patient/family and is monitoring
medical plan for needs at discharge.
Plan: Discharge to home no needs.
--- NOTE | 2023-11-29 14:30 | PTCARENOTE ---
This RN reviewed discharge paperwork with pt. RN attempted to pull IV for discharge and pt stated 'I already took it out'. Unable to locate IV pt stated he threw it in the trash. Pt offers no complaints at this time.
== END 2023-11-29 15:05 | disposition home or self-care (01) | DRG 896 ==
LOC: 2 NORTH 15:52
PROVIDERS: ADMITTING PHYSICIAN Internal Medicine; CONSULT PHYSICIAN Psychiatry & Neurology Psychiatry; CONSULT PHYSICIAN Student in an Organized Health Care Education/Training Program; EMERGENCY PHYSICIAN Emergency Medicine; FAMILY PHYSICIAN Internal Medicine
DX: F11.121 Opioid abuse with intoxication delirium (principal); G92.8 Other toxic encephalopathy; I61.8 Other nontraumatic intracerebral hemorrhage; R79.89 Other specified abnormal findings of blood chemistry; I10 Essential (primary) hypertension; K21.9 Gastro-esophageal reflux disease without esophagitis; F10.21 Alcohol dependence, in remission
CPT/HCPCS: 51701; 70450; 70551; 76700; 80053; 80143; 80179; 80306; 80307; 81003; 81015; 82077; 82140; 82607; 84443; 85025; 85027; 87502; 87811; 92610; 93005; 96374; 99291

== ENCOUNTER 2025-02-19 15:22 | Inpatient (IN) | payer OTHER, SELFPAY ==
[2025-02-19] VITALS (12 sets, daily range): BP systolic 112–148; BP diastolic 73–84; BMI 30.6; BMI 30.5
[2025-02-19] MEDS: TYLENOL 1000 MG PO (11:37)
[2025-02-19 11:38] LABS: % Basophils 0.3 % (0-2); % Eosinophils 0.3 % (0-6); % Immature Granulocytes 0.9 % (0-0.5); % Lymphocytes 2.7 % (20.5-51.1); % Monocytes 3.9 % (1.7-9.3); % Neutrophils 91.9 % (42.2-75.2); Absolute Basophils 0.1 10^3/uL (0-0.2); Absolute Eosinophils 0.1 10^3/uL (0-0.7); Absolute Immature Granulocytes 0.2 10^3/uL (0-0.05); Absolute Lymphocytes 0.5 10^3/uL (1.2-3.4); Absolute Monocytes 0.7 10^3/uL (0.1-0.6); Absolute Neutrophils 16.1 10^3/uL (1.4-6.5); Hematocrit 22.2 % (39.0-52.0); Hemoglobin 7.1 g/dL (13.0-18.0); Mean Corpuscular Hgb 24.1 pg (27.0-31.0); Mean Corpuscular Volume 75.5 fL (80.0-94.0); Mean Platelet Volume 9.8 fL (7.4-10.4); Nucleated Red Blood Cells % 0 % (-); Platelet Count 405 10^3/uL (130-400); Red Blood Cell Count 2.94 10^6/uL (4.70-6.10); Red Cell Dist. Width 15.3 % (11.5-14.5); White Blood Cell Count 17.5 10^3/uL (4.8-10.8)
[2025-02-19] MEDS: NSS 1000 IV ×2 (11:38→13:33)
--- NOTE | 2025-02-19 11:39 | ED.GENMED ---
History of Present Illness
<Luis Grimaldo Jr., PA-C - Last Filed: 02/19/25 15:45>
General
Chief Complaint: Fever
Source: patient
Exam Limitations: none
Time Seen by Provider: 02/19/25 11:21
Nursing documentation reviewed up to this point in time: agreed with
History of Present Illness
History of Present Illness:
54-year-old male past medical history of hypertension presenting to the emergency department today with concerns of right sided lower chest pain with associated shortness of breath and fevers chills and a cough over the past few days. Denies any
nausea vomiting or lower abdominal pain.
Past History
<LOS Johnson Jr. Last Filed: 02/19/25 15:45>
Past History
ED Past Medical History: Psychiatric (depression, anxiety) and Other (alcoholism)
Social History
Alcohol: Chronic alcoholic
Living: alone
Family History
Family History: Other (reviewed and non-contributory)
Review of Systems
<LOS Johnson Jr. Last Filed: 02/19/25 15:45>
Review of Systems
Allergies reviewed?: Yes
All Other Systems: ROS reviewed and negative except as documented in HPI and ROS
Phy Exam
<LOS Johnson Jr. Last Filed: 02/19/25 15:45>
Physical Exam
Physical Exam:
GENERAL: Alert , in no apparent distress
EYE: pupils equal and reactive
NECK: Supple, no significant adenopathy.
ENT: o/p clr, mmm.
CARDIAC: Regular rate and rhythm .
LUNGS: Clear breath sounds bilaterally, no acute respiratory distress, no wheezes/rales/rhonchi
ABDOMEN: Soft, without focal tenderness, no r/g, no cvat
NEUROLOGICAL: Alert and oriented, no focal neuro deficits
SKIN: Warm and dry, skin intact.
MUSCULOSKELETAL: No edema, well perfused.
PSYCH: Normal and appropriate interaction.
Sepsis
<Luis Grimaldo Jr., PA-C - Last Filed: 02/19/25 15:45>
Sepsis Screening
Sepsis Assessment: Sepsis
Sepsis Screen
Sepsis Screen: Sepsis
Date: 02/19/25
Time: 15:45
Course
<Luis Grimaldo Jr., PA-C - Last Filed: 02/19/25 15:45>
Orders/Labs/Results
Orders:
Orders
02/19/25 11:16
Electrocardiogram (*1) Urgent
Reason for Study: Chest Pain
EKG- Treatment ONCE
02/19/25 11:23
COVID-19 Antigen Urgent
Source: Nasal Swab
Complete Blood Count/With Diff Urgent
Comprehensive Metabolic Panel Urgent
Lactic Acid Urgent
Lipase Urgent
Magnesium Urgent
Comment: ADD ON
Troponin I Urgent
Influenza A+B Rapid Molecular Urgent
BILLIE Source: Nasal Swab
Specimen Description:
02/19/25 11:36
0.9% Sodium Chloride 1000 ml [Nss] 1,000 ml IV BOLUS
Acetaminophen [Tylenol] 1,000 mg .ROUTE .STK-MED ONE
Acetaminophen [Tylenol] 1,000 mg PO NOW STA
Chest [CR Chest - 2 Views ] Urgent
Comment:
Reason For Exam: sob, right sided pain
02/19/25 11:46
* Blood Bank Products Urgent
Blood Bank Products: *Packed RBC Leuko(PRBC's)
Quantity: 1
Transfuse Today: Yes
Reason: Anemia
02/19/25 11:49
HYDROmorphone [Dilaudid] 0.5 mg IV NOW STA
02/19/25 11:51
Type+Screen Urgent
Blood Culture Q30M
BILLIE Source: Blood/Venous
Specimen Description:
02/19/25 11:52
Blood Culture Q30M
BILLIE Source: Blood/Venous
Specimen Description:
02/19/25 12:07
CT Chest/abd/pel W Iv Cont Urgent
Comment:
Reason For Exam: chest abd pain
02/19/25 12:08
Cefepime HCl [Maxipime] 2,000 mg IV NOW STA
MetroNIDAZOLE 500 MG/100 ML [Flagyl 500 mg] 100 ml IV NOW
02/19/25 12:09
Vancomycin [Vancocin] 2,000 mg 0.9% Sodium Chloride 500 ml [Nss] 500 ml IV NOW
02/19/25 12:24
ABO2 Routine
BBK Wristband Number:
Associate notified that ABO2 has been ordered: [id number]
Date: 02/19/25
Time: 11:54
Saw Sharpener ID: [id number]
02/19/25 12:32
Potassium Chloride [KCl] 40 meq 0.9% Sodium Chloride 250 ml [Nss] 250 ml IV NOW
02/19/25 13:06
Pantoprazole [Protonix IV] 80 mg IV NOW STA
02/19/25 13:08
0.9% Sodium Chloride 1000 ml [Nss] 1,000 ml IV BOLUS
02/19/25 14:47
Add On- LAB Stat
Tests Added?: magnesium
02/19/25 15:07
Admit/Transfer Patient As Directed
Co-Sign Provider:
Level of Care: Inpatient admission
Assign to:: Telemetry
Physician / Group: margareth
Diagnosis: acute hypoxic respiratory failure
Reason for Telemetry: Arrhythmia
Date to Stop Telemetry: 02/22/25
Time to Stop Telemetry: 11:00
Reason for Hospitalization: acute hypoxia
Expected length of stay greater than two midnights?: Yes
ELOS- Estimated Length of Stay in days: 3
I certify the patient meets the requirements for IP care: Yes
02/19/25 15:08
PRN Pain Medication Management As Directed
May give lesser potent ordered pain med per pt: Yes
preference::
Protocol:: Medication orders for pain may be administered in a
manner that supports deferring to patient preference
when the pt is:
- Requesting an ordered lesser potent pain medication.
Least to most potent pain medications are defined
as: acetaminophen < NSAID < tramadol < opioids
(morphine, oxycodone, hydromorphone).
- Requesting a lesser dose of the same medication IF
ORDERED.
- Requesting a less intrusive route of administration
if both routes are prescribed by the provider (PO <
IV).
02/19/25 15:09
Code Status As Directed
Resuscitation Status: Full Code
02/19/25 17:30
H&H Q6H
02/19/25 23:30
H&H Q6H
02/20/25 05:30
H&H Q6H
02/22/25 11:00
DC Protocol for Telemetry ONCE
Abnormal Lab Results
02/19/25 02/19/25
11:23 11:51
WBC 17.5 H 10^3/uL
(4.8-10.8)
RBC 2.94 L 10^6/uL
(4.70-6.10)
Hgb 7.1 L g/dL
(13.0-18.0)
Hct 22.2 L %
(39.0-52.0)
MCV 75.5 L fL
(80.0-94.0)
MCH 24.1 L pg
(27.0-31.0)
MCHC 32.0 L g/dL
(33.0-37.0)
RDW 15.3 H %
(11.5-14.5)
Plt Count 405 H 10^3/uL
(130-400)
Abs Immat Gran (auto) 0.2 H 10^3/uL
(0-0.05)
Absolute Neuts (auto) 16.1 H 10^3/uL
(1.4-6.5)
Absolute Lymphs (auto) 0.5 L 10^3/uL
(1.2-3.4)
Absolute Monos (auto) 0.7 H 10^3/uL
(0.1-0.6)
Immature Gran % 0.9 H %
(0-0.5)
Neutrophils % 91.9 H %
(42.2-75.2)
Lymphocytes % 2.7 L %
(20.5-51.1)
Sodium 131 L mmol/L
(135-145)
Potassium 2.5 L* mmol/L
(3.5-5.1)
Glucose 112 H mg/dl
(70-99)
Calcium 7.9 L mg/dl
(8.4-10.2)
AST 14 L U/L
(17-59)
Total Protein 5.7 L g/dl
(6.3-8.2)
Albumin 3.4 L g/dl
(3.5-5.0)
Lipase 20 L U/L
(23-300)
Crossmatch IS Only See Detail
02/19/25 11:23
02/19/25 11:23
Vital Signs
Initial and Last Documented VS:
Initial Vital Signs
Temp Pulse Resp BP Pulse Ox
103.0 F H 100 30 128/76 93
02/19/25 11:16 02/19/25 11:16 02/19/25 11:16 02/19/25 11:16 02/19/25 11:16
Last Documented Vital Signs
Temp Pulse Resp BP Pulse Ox
98.8 F 95 30 129/75 91
02/19/25 15:23 02/19/25 15:30 02/19/25 15:30 02/19/25 15:23 02/19/25 15:30
<Joel Monroe, - Last Filed: 02/19/25 12:11>
Orders/Labs/Results
Orders:
Orders
02/19/25 11:16
Electrocardiogram (*1) Urgent
Reason for Study: Chest Pain
EKG- Treatment ONCE
02/19/25 11:23
COVID-19 Antigen Urgent
Source: Nasal Swab
Complete Blood Count/With Diff Urgent
Comprehensive Metabolic Panel Urgent
Lactic Acid Urgent
Lipase Urgent
Magnesium Urgent
Comment: ADD ON
Troponin I Urgent
Influenza A+B Rapid Molecular Urgent
BILLIE Source: Nasal Swab
Specimen Description:
02/19/25 11:36
0.9% Sodium Chloride 1000 ml [Nss] 1,000 ml IV BOLUS
Acetaminophen [Tylenol] 1,000 mg .ROUTE .STK-MED ONE
Acetaminophen [Tylenol] 1,000 mg PO NOW STA
Chest [CR Chest - 2 Views ] Urgent
Comment:
Reason For Exam: sob, right sided pain
02/19/25 11:46
* Blood Bank Products Urgent
Blood Bank Products: *Packed RBC Leuko(PRBC's)
Quantity: 1
Transfuse Today: Yes
Reason: Anemia
02/19/25 11:49
HYDROmorphone [Dilaudid] 0.5 mg IV NOW STA
02/19/25 11:51
Type+Screen Urgent
Blood Culture Q30M
BILLIE Source: Blood/Venous
Specimen Description:
02/19/25 11:52
Blood Culture Q30M
BILLIE Source: Blood/Venous
Specimen Description:
02/19/25 12:07
CT Chest/abd/pel W Iv Cont Urgent
Comment:
Reason For Exam: chest abd pain
02/19/25 12:08
Cefepime HCl [Maxipime] 2,000 mg IV NOW STA
MetroNIDAZOLE 500 MG/100 ML [Flagyl 500 mg] 100 ml IV NOW
02/19/25 12:09
Vancomycin [Vancocin] 2,000 mg 0.9% Sodium Chloride 500 ml [Nss] 500 ml IV NOW
02/19/25 12:24
ABO2 Routine
BBK Wristband Number:
Associate notified that ABO2 has been ordered: [id number]
Date: 02/19/25
Time: 11:54
Saw Sharpener ID: [id number]
02/19/25 12:32
Potassium Chloride [KCl] 40 meq 0.9% Sodium Chloride 250 ml [Nss] 250 ml IV NOW
02/19/25 13:06
Pantoprazole [Protonix IV] 80 mg IV NOW STA
02/19/25 13:08
0.9% Sodium Chloride 1000 ml [Nss] 1,000 ml IV BOLUS
02/19/25 14:47
Add On- LAB Stat
Tests Added?: magnesium
02/19/25 15:07
Admit/Transfer Patient As Directed
Co-Sign Provider:
Level of Care: Inpatient admission
Assign to:: Telemetry
Physician / Group: margareth
Diagnosis: acute hypoxic respiratory failure
Reason for Telemetry: Arrhythmia
Date to Stop Telemetry: 02/22/25
Time to Stop Telemetry: 11:00
Reason for Hospitalization: acute hypoxia
Expected length of stay greater than two midnights?: Yes
ELOS- Estimated Length of Stay in days: 3
I certify the patient meets the requirements for IP care: Yes
02/19/25 15:08
PRN Pain Medication Management As Directed
May give lesser potent ordered pain med per pt: Yes
preference::
Protocol:: Medication orders for pain may be administered in a
manner that supports deferring to patient preference
when the pt is:
- Requesting an ordered lesser potent pain medication.
Least to most potent pain medications are defined
as: acetaminophen < NSAID < tramadol < opioids
(morphine, oxycodone, hydromorphone).
- Requesting a lesser dose of the same medication IF
ORDERED.
- Requesting a less intrusive route of administration
if both routes are prescribed by the provider (PO <
IV).
02/19/25 15:09
Code Status As Directed
Resuscitation Status: Full Code
02/19/25 17:30
H&H Q6H
02/19/25 23:30
H&H Q6H
02/20/25 05:30
H&H Q6H
02/22/25 11:00
DC Protocol for Telemetry ONCE
Abnormal Lab Results
02/19/25 02/19/25
11:23 11:51
WBC 17.5 H 10^3/uL
(4.8-10.8)
RBC 2.94 L 10^6/uL
(4.70-6.10)
Hgb 7.1 L g/dL
(13.0-18.0)
Hct 22.2 L %
(39.0-52.0)
MCV 75.5 L fL
(80.0-94.0)
MCH 24.1 L pg
(27.0-31.0)
MCHC 32.0 L g/dL
(33.0-37.0)
RDW 15.3 H %
(11.5-14.5)
Plt Count 405 H 10^3/uL
(130-400)
Abs Immat Gran (auto) 0.2 H 10^3/uL
(0-0.05)
Absolute Neuts (auto) 16.1 H 10^3/uL
(1.4-6.5)
Absolute Lymphs (auto) 0.5 L 10^3/uL
(1.2-3.4)
Absolute Monos (auto) 0.7 H 10^3/uL
(0.1-0.6)
Immature Gran % 0.9 H %
(0-0.5)
Neutrophils % 91.9 H %
(42.2-75.2)
Lymphocytes % 2.7 L %
(20.5-51.1)
Sodium 131 L mmol/L
(135-145)
Potassium 2.5 L* mmol/L
(3.5-5.1)
Glucose 112 H mg/dl
(70-99)
Calcium 7.9 L mg/dl
(8.4-10.2)
AST 14 L U/L
(17-59)
Total Protein 5.7 L g/dl
(6.3-8.2)
Albumin 3.4 L g/dl
(3.5-5.0)
Lipase 20 L U/L
(23-300)
Crossmatch IS Only See Detail
02/19/25 11:23
02/19/25 11:23
Vital Signs
Initial and Last Documented VS:
Initial Vital Signs
Temp Pulse Resp BP Pulse Ox
103.0 F H 100 30 128/76 93
02/19/25 11:16 02/19/25 11:16 02/19/25 11:16 02/19/25 11:16 02/19/25 11:16
Last Documented Vital Signs
Temp Pulse Resp BP Pulse Ox
98.8 F 95 30 129/75 91
02/19/25 15:23 02/19/25 15:30 02/19/25 15:30 02/19/25 15:23 02/19/25 15:30
<Luis Grimaldo Jr., PA-C - Last Filed: 02/19/25 15:45>
MDM/Problems Addressed
MDM/Problems Addressed:
54-year-old male presenting to the emergency department today with concerns of right lower chest discomfort some shortness of breath and cough as well as fevers and chills. 103 temperature on arrival. Was given Tylenol. Otherwise on examination
the patient did have adventitious lung sounds to the right lower lobe concerning for pneumonia he was started on empiric antibiotics for coverage of this. He was found to have a white count of 17.5 but normal lactic acid. His hemoglobin was low at
7.1 and had a guaiac positive rectal examination with dark brown stool. Was also started on a unit of blood. Additionally potassium was found to be low at 2.5 and given IV dose of potassium. CT scan confirming pneumonia there was additional
finding of possible parenchymal necrosis this was discussed with pulmonary at time of admission. Stable throughout ER stay.
<Joel Monroe DO - Last Filed: 02/19/25 12:11>
*Critical Care Note
Total Time (30-74mins, 75-104mins- exclusive of procedures): 35 minutes
ED Attending Note
<Luis Grimaldo Jr., PA-C - Last Filed: 02/19/25 15:45>
-
Portions of this chart may have been created with voice recognition software.� Occasional wrong word or��sound alike� substitutions may have occurred due to the inherent limitations of voice recognition software.
<Joel Monroe DO - Last Filed: 02/19/25 12:11>
ED Attending Note
Patient seen and examined by attending physician: Yes
I performed the substantive portion of visit, reviewed & personally made and approve the management plan that is documented in note by myself or CONCHA.: Yes
ED Attending Note:
54-year-old male who presents with 2 days of fevers at home. Patient states he has been coughing and felt short of breath. Today he started with abdominal pain and right low back pain. Patient states the pain seems to come and go and is a little
bit positional. Patient reports that he has had some black stools but also notes he had some recent nosebleeds on the right side. Was drinker in the past but states he has been sober for 1 year. Denies hemoptysis. No recent travel. Exam:
Tachycardic, diffuse right-sided abdominal tenderness noted on exam. Mild left-sided tenderness. No rebound. No obvious rash. Assessment and plan: Check CT chest, abdomen, pelvis. Noted to be anemic with a leukocytosis with left shift and a
fever. Cover with broad-spectrum antibiotics pending results. Continue IV fluids. Fever control
Discharge Plan
Departure
Patient Disposition: Admit
Date of Disposition: 02/19/25
Time of Disposition: 14:47
Admit to: IMU
Admit to doctor: Margareth
Presentation/result/management discussed w/ accepting MD/DO: Hospitalist
Patient with high blood pressure during this ER visit?: No
Condition: Fair
Covid-19: Not Applicable
Discharge Problem:
Pneumonia, Acute hypokalemia, Anemia
Interventions
Interventions:
*Risk Screen - Suicide Last Done: 02/19/25 11:16
*General Assessment Last Done: 02/19/25 11:16
*Neglect/Abuse Screening Last Done: 02/19/25 11:16
*ED- Fall Risk Assessment Last Done: 02/19/25 11:26
*ED COVID-19 Vaccine History Last Done: 02/19/25 11:26
ED- Neurological Assessment Last Done: 02/19/25 11:41
ED-Skin Assessment Last Done: 02/19/25 11:41
[2025-02-19] MEDS: DILAUDID 0.5 MG IV (11:53)
[2025-02-19 11:59] LABS: COVID-19 Antigen Negative (Negative)
[2025-02-19 12:03] LABS: Troponin I < 0.012 ng/ml
[2025-02-19 12:10] LABS: Lactic Acid 1.3 mmol/L (0.7-2.0)
[2025-02-19 12:18] LABS: ALT (SGPT) 18 U/L (0-50); AST (SGOT) 14 U/L (17-59); Albumin 3.4 g/dl (3.5-5.0); Alkaline Phosphatase 81 U/L (38-126); Blood Urea Nitrogen 14 mg/dl (9-20); Calcium 7.9 mg/dl (8.4-10.2); Carbon Dioxide 25 mmol/L (22-30); Chloride 98 mmol/L (98-107); Estimated Creatinine Clearance > 125 ml/min; Glucose 112 mg/dl (70-99); Lipase 20 U/L (23-300); Potassium 2.5 mmol/L (3.5-5.1); Sodium 131 mmol/L (135-145); Total Bilirubin 0.5 mg/dl (0.2-1.3); Total Protein 5.7 g/dl (6.3-8.2); eGFR > 60.00
[2025-02-19] MEDS: MAXIPIME 2000 MG IV (12:33)
[2025-02-19] MEDS: FLAGYL 500 MG 100 IV (12:37)
[2025-02-19] MEDS: KCL 270 MEQ IV (13:33)
[2025-02-19] MEDS: PROTONIX IV 80 MG IV (13:33)
[2025-02-19] MEDS: VANCOCIN 540 MG IV (13:48)
--- NOTE | 2025-02-19 14:40 | HPS.HSE ---
Family Physician
-
Family Physician: Giovanna Morgan MD
Chief Complaint
-
sob, left sided chest pain
abdominal pain
History of Present Illness
54-year-old male past medical history of hypertension, anxiety, alcohol abuse presenting to the emergency department today with concerns of right sided lower chest pain with associated shortness of breath and fevers chills and a cough since Monday
night. patient sob worse with exertion. it hurts to take deep breath. his cough is nor productive. he is complaining of headache and dizzy. he is complaining of generalized achiness. he is also complaining of right sided abdominal pain. denied
nausea and vomiting. he noticed black stool since yesterday.denied dysuria or hematuria.
Patient was noted hypoxic on arrival. CT with necrotizing pneumonia. Patient received Vanco, cefepime and Flagyl in ER. Patient received fluids in the ER. Patient received Protonix in ER. Patient received IV KCl. Blood culture sent. Patient
also received 1 unit of blood in the ER. Admitting for further management
Medical History
Past Medical History
Past Medical History: Reports Other
Additional Past Medical History:
Anxiety
Hypertension
Alcohol abuse
Past Surgical History: Reports None
Social History
Tobacco: Former Smoker
Alcohol: Former
Drug: None
Living: With Family
Employment: Not Employed
Family History
Family History: Not pertinent
Allergies / Home Medications
Allergies reflects when Allergies were last updated in [facility].
Home Medications with original date entered in [facility]
Allergy/Medication List:
Allergies
Allergy/AdvReac Type Severity Reaction Status Date / Time
amoxicillin (From Augmentin) Allergy Rash - > Verified 02/19/25 12:46
20 years
ago
clavulanic acid (From Allergy Rash - > Verified 02/19/25 12:46
Augmentin) 20 years
ago
Home Medications
amlodipine 10 mg tablet (Norvasc) 10 mg PO DAILY Blood Pressure 11/27/23
aspirin 81 mg tablet 81 mg PO PRN PRN CARDIOVASCULAR 02/19/25
bupropion HCl 300 mg 24 hr tablet, extended release 300 mg PO DAILY Mental Health/Anxiety 02/19/25
clonidine HCl 0.1 mg tablet 0.1 mg PO TIDPRN PRN BLOOD PRESSURE 02/19/25
doxepin 100 mg capsule 100 mg PO DAILY 02/19/25
escitalopram oxalate 20 mg tablet 20 mg PO DAILY Mental Health/Anxiety 02/19/25
ibuprofen-diphenhydramine citrate 200 mg-38 mg tablet (Advil PM) 1 cap PO HS PRN PAIN 02/19/25
melatonin 10 mg tablet 10 mg PO HS PRN INSOMNIA 02/19/25
omeprazole 20 mg capsule,delayed release 20 mg PO DAILYPRN PRN GERD 02/19/25
Review of Systems
-
Constitutional: Reports No Symptoms, Fatigue and Night Sweats
EENT: Reports No Symptoms
Respiratory: Reports Cough and Trouble Breathing
Cardiac: Reports No Symptoms
Abdomen/GI: Reports No Symptoms and Abdominal Pain
: Reports No Symptoms
Musculoskeletal: Reports No Symptoms
Skin: Reports No Symptoms
Neurological: Reports Dizzy and Headache
Endocrine: Reports No Symptoms
Hematologic/Lymphatic: Reports No Symptoms
Psych: Reports No Symptoms
Physical Exam
Vital Signs
Vital Signs
Temp Pulse Resp BP Pulse Ox
99.2 F 105 37 130/73 92
02/19/25 14:08 02/19/25 14:00 02/19/25 14:00 02/19/25 12:00 02/19/25 14:00
Physical Exam
General: Well Developed, Well Nourished and No Apparent Distress
HEENT: NormoCephalic, Moist mucous membranes and Atraumatic
Respiratory: Clear
Cardiac: S1/S2 and Regular Rhythm; No Murmur or Rub
GI: Soft, Non Tender, Non Distended and Normal Bowel Sounds; No Organomegaly
Rectal: Deferred by Provider
Musculoskeletal: No Clubbing, No Cyanosis and No Edema
Skin: No Rash
Neuro: AO x 3 and Nonfocal/grossly intact
Psych: Calm
Laboratory Results
-
02/19/25 11:23
02/19/25 11:
Laboratory Results
Lactic Acid 1.3 mmol/L (0.7-2.0) 02/19/25 11:
Total Bilirubin 0.5 mg/dl (0.2-1.3) 02/19/25 11:
AST 14 U/L (17-59) L 02/19/25 11:
ALT 18 U/L (0-50) 02/19/25 11:
Alkaline Phosphatase 81 U/L (38-126) 02/19/25 11:
Troponin I < 0.012 ng/ml 02/19/25 11:23
Lipase 20 U/L (23-300) L 02/19/25 11:23
Data Reviewed
-
CT Scan: Report Reviewed by me
Lab Data: Labs Reviewed by me
Impression/Plan
-
#acute hypoxic respiratory failure secondary to necrotizing pneumonia
-Sepsis as evident by WBC 17.5, tachycardia
- Continue supplemental oxygen to keep sat 80-95
- Wean as tolerated
- COVID-negative
- Chest abdomen pelvis CT with impression of Moderate right pleural effusion. Hypodense pulmonary consolidation/pneumonia in the posterior right lower lobe, raising possibility of parenchymal necrosis.Borderline mediastinal adenopathy.Fat-containing
hernia esophageal hiatus measuring approximately 6 cm.Mild hepatomegaly. Mild fatty infiltration and a few tiny cysts suggested.Mild diverticulosis. No evidence of acute diverticulitis. Mobile intraperitoneal cecum situated in the left upper
quadrant. Constipation with mild to moderate fecal burden in the cecum and ascending colon.The appendix is not identified with certainty. No secondary signs of appendicitis.
- Chest x-ray pending
-iv Zosyn and vanco
- Pulmonology consulted
# Acute blood loss anemia secondary to GI bleed
- Guaiac positive brown stool
- Patient is receiving 1 unit of blood
- Continue to trend hemoglobin
- Clear liquid diet
-PPI drip
- GI consult
#Hypokalemia unclear cause likely from poor appetite
# Hyponatremia likely hypovolemic
- K2.5
- IV potassium in ER
- Obtain mag level
-Patient received 2 L normal saline in ER
- BMP in a.m.
# Anxiety
-Bupropion, doxepin, escitalopram continued
#Essential HTN
- continue Norvasc
GERD - PPI
DVT ppx: SCDs
Code: Full
--- NOTE | 2025-02-19 14:42 | W.PN.UPDATE ---
Update Note
Progress Note Update
I have independently examined the patient and agree with H&P written on the same date. In addition:
54yo M came with SOB and pleuritic chest pain, CT showed concern for RLL necrotizing pneumonia and labs with new anemia with FOBT+ stool
- RLL necrotizing pneumonia
Vanco/ZOsyn
Pulm consult
Sputum Cx
COVID-19 and influenza neg
- Anemia, microcytic
check iron
follow CBC, transfuse to keep hgb>7
GI consult
PPI drip
hold AC/AP
-reactive thrombocytosis
follow
-hypokalemia
replete and follow
check Mg
We have spent at least 78min admitting the patient
[2025-02-19 15:38] LABS: Magnesium 2.2 mg/dl (1.6-2.3)
--- NOTE | 2025-02-19 17:14 | CON.GI ---
Consultation
-
Date/Time Consultation Requested: 02/19/25
Date/Time Consultation Performed: 02/19/25
Requesting Provider: Carlene Vallejo
Performing Provider:
Reason for Consultation: anemia, Ob positive stool
Medical History
Chief Complaint / HPI
Chief Complaint: SOB
History of Present Illness:
This is a 54-year-old male with past medical history of hypertension, anxiety, alcohol abuse has been sober for the past 1 year, prior use of CBD Gummies which he quit about a few months ago and also was using Kratom which he says he has not used
since last week. He has had mildly elevated LFTs in the past which was thought to be related to alcohol and Kratom and also his other medications which has now normalized especially since he stopped drinking about a year ago. He also has had a few
admissions for altered mental status in the past which was thought to be medication and alcohol related in the past. He now presents with shortness of breath since yesterday and on imaging was noted to have necrotizing right lower lobe pneumonia
and has been started on antibiotics and pulmonary has been consulted. He also had fevers chills and a cough since Monday but shortness of breath worsened since yesterday. He also had noted dark stool yesterday and another episode a few days ago.
He was OB positive in the ER with brown stool he currently denies any abdominal pain no hematemesis. He does take Advil PM daily and also on aspirin 81 mg daily in addition to all his other medications. He says he had an endoscopy over 30 years
ago when he had vomiting from alcohol and was told he had ulcers or esophagitis. His hemoglobin this admission is 7.1 and on 11/29/2023 was 12.5. He is receiving 1 unit of packed red blood cells and has been started on a PPI drip he also was noted
to have hypokalemia and is being repleted
Past Medical History
Past Medical History: Other (Anxiety, Hypertension, Alcohol abuse sober since 2023)
Social History
Tobacco: Former Smoker
Alcohol: Other (History of alcohol abuse and he states quit about a year ago and has been sober has been to alcohol rehab in the past)
Drug: Other (Was using CBD Gummies which he says he stopped a couple months ago and was also using Kratom to help with alcohol cravings which he stopped a few days ago)
Living: With Family
Family History
Family History: Reviewed & Not Pertinent
Allergies / Home Medications
Allergy/AdvReac Type Severity Reaction Status Date / Time
amoxicillin (From Augmentin) Allergy Rash - > Verified 02/19/25 12:46
20 years
ago
clavulanic acid (From Allergy Rash - > Verified 02/19/25 12:46
Augmentin) 20 years
ago
�Medication �Instructions �Recorded
amlodipine 10 mg tablet (Norvasc) 10 mg PO DAILY Blood Pressure 11/27/23
aspirin 81 mg tablet 81 mg PO PRN PRN CARDIOVASCULAR 02/19/25
bupropion HCl 300 mg 24 hr tablet, 300 mg PO DAILY Mental 02/19/25
extended release Health/Anxiety
clonidine HCl 0.1 mg tablet 0.1 mg PO TIDPRN PRN BLOOD PRESSURE 02/19/25
doxepin 100 mg capsule 100 mg PO DAILY 02/19/25
escitalopram oxalate 20 mg tablet 20 mg PO DAILY Mental 02/19/25
Health/Anxiety
ibuprofen-diphenhydramine citrate 1 cap PO HS PRN PAIN 02/19/25
200 mg-38 mg tablet (Advil PM)
melatonin 10 mg tablet 10 mg PO HS PRN INSOMNIA 02/19/25
omeprazole 20 mg capsule,delayed 20 mg PO DAILYPRN PRN GERD 02/19/25
release
Review of Systems
-
All other systems: A 12 pt ROS was Negative except as stated above in HPI
Vital Signs
Temp Pulse Resp BP Pulse Ox
99.7 F 99 22 122/83 92
02/19/25 16:40 02/19/25 16:40 02/19/25 16:40 02/19/25 16:40 02/19/25 16:40
Physical Exam
Exam
General: No Apparent Distress
Respiratory: Other (Decreased breath sounds especially at the right lower base with a few crackles and rhonchi)
Cardiac: S1/S2 and Regular Rhythm
GI: Soft, Non Distended, Normal Bowel Sounds and Tender (Mild right upper quadrant tenderness)
Musculoskeletal: No Clubbing
Skin: Warm
Neuro: Awake, Alert and Oriented
Psych: Calm
Results
WBC 17.5 10^3/uL (4.8-10.8) H 02/19/25 11:23
Hgb 7.1 g/dL (13.0-18.0) L 02/19/25 11:23
Hct 22.2 % (39.0-52.0) L 02/19/25 11:23
MCV 75.5 fL (80.0-94.0) L 02/19/25 11:23
Plt Count 405 10^3/uL (130-400) H 02/19/25 11:23
Absolute Neuts (auto) 16.1 10^3/uL (1.4-6.5) H 02/19/25 11:23
Sodium 131 mmol/L (135-145) L 02/19/25 11:23
Potassium 2.5 mmol/L (3.5-5.1) L* 02/19/25 11:23
Chloride 98 mmol/L (98-107) 02/19/25 11:23
Carbon Dioxide 25 mmol/L (22-30) 02/19/25 11:23
BUN 14 mg/dl (9-20) 02/19/25 11:23
Creatinine 0.7 mg/dL (0.7-1.3) 02/19/25 11:23
Calcium 7.9 mg/dl (8.4-10.2) L 02/19/25 11:23
Total Bilirubin 0.5 mg/dl (0.2-1.3) 02/19/25 11:23
AST 14 U/L (17-59) L 02/19/25 11:23
ALT 18 U/L (0-50) 02/19/25 11:23
Alkaline Phosphatase 81 U/L (38-126) 02/19/25 11:23
Lipase 20 U/L (23-300) L 02/19/25 11:23
Diagnostic Image Results:
02/19/25 CT Chest/abd/pel W Iv Cont
IMPRESSION:
Moderate right pleural effusion.
Hypodense pulmonary consolidation/pneumonia in the posterior right lower lobe, raising possibility of parenchymal necrosis.
Borderline mediastinal adenopathy.
Fat-containing hernia esophageal hiatus measuring approximately 6 cm.
Mild hepatomegaly. Mild fatty infiltration and a few tiny cysts suggested.
Mild diverticulosis. No evidence of acute diverticulitis. Mobile intraperitoneal cecum situated in the left upper quadrant. Constipation with mild to moderate fecal burden in the cecum and ascending colon.
The appendix is not identified with certainty. No secondary signs of appendicitis.
Prior GI Procedures:
EGD: 30 years ago
Colonoscopy: none
Assessment / Plan
-
54-year-old male who presented with shortness of breath, fevers, chills and a cough and has been diagnosed with right lower lobe necrotizing pneumonia and has been started on broad-spectrum antibiotics. Tmax was 103 on admission and also has
leukocytosis. Also has anemia with recent history of melena 1 episode yesterday and 1 a few days ago and OB positive with brown stool in the ER. Most likely could be related to peptic ulcer disease since he takes Advil PM daily and also takes
aspirin versus angioectasias versus less likely neoplasm. Agree with Protonix drip and blood transfusion and monitor hemoglobin will schedule endoscopy when respiratory status is improved. He also has microcytic anemia so need to rule out possible
chronic GI blood loss also, iron studies currently may be skewed with his acute infection the ferritin may be elevated. Will also need a colonoscopy can schedule both endoscopy and colonoscopy as outpatient when respiratory status is improved if he
has no further active bleeding. Will be performed sooner as inpatient if he has active bleeding
-
-
Thank you for consultation and allowing me to participate in the patient's care. Please call the youth care professional GI physician during the after hours with any questions or concerns.
[2025-02-19] MEDS: ZOSYN 50 IV ×2 (18:01→23:33)
[2025-02-19] MEDS: PROTONIX 100 IV (18:22)
[2025-02-19] MEDS: TYLENOL 650 MG PO (18:24)
[2025-02-19] MEDS: DILAUDID 1 MG IV ×2 (18:42→23:33)
[2025-02-20] VITALS (17 sets, daily range): BP systolic 105–137; BP diastolic 62–97
[2025-02-20 00:09] LABS: Hematocrit 24.2 % (39.0-52.0); Hemoglobin 7.9 g/dL (13.0-18.0)
[2025-02-20] MEDS: PROTONIX 100 IV ×2 (03:13→12:54)
[2025-02-20] MEDS: DILAUDID 1 MG IV ×4 (03:34→23:59)
[2025-02-20] MEDS: ZOSYN 50 IV ×4 (05:00→23:59)
[2025-02-20] MEDS: VANCOCIN 530 MG IV (05:18)
[2025-02-20] MEDS: TYLENOL 650 MG PO ×3 (05:18→18:38)
[2025-02-20 06:23] LABS: Hematocrit 21.9 % (39.0-52.0); Hemoglobin 7.3 g/dL (13.0-18.0); Mean Corp Hgb Conc. 33.3 g/dL (33.0-37.0); Mean Corpuscular Hgb 25.3 pg (27.0-31.0); Platelet Count 371 10^3/uL (130-400); Red Blood Cell Count 2.88 10^6/uL (4.70-6.10); Red Cell Dist. Width 15.6 % (11.5-14.5); White Blood Cell Count 19.4 10^3/uL (4.8-10.8)
[2025-02-20 06:42] LABS: Blood Urea Nitrogen 7 mg/dl (9-20); Calcium 7.5 mg/dl (8.4-10.2); Carbon Dioxide 24 mmol/L (22-30); Chloride 101 mmol/L (98-107); Estimated Creatinine Clearance > 125 ml/min; Glucose 114 mg/dl (70-99); Potassium 2.8 mmol/L (3.5-5.1); Sodium 132 mmol/L (135-145); eGFR > 60.00
--- NOTE | 2025-02-20 07:13 | W.PN.HOSP.TC ---
Today's Communication/Plan
-
Transferred to IMU for worsening respiratory status
See below
Assessment / Plan
Assessment / Plan
Physical Exam
General: Not in acute distress
HEENT: Normocephalic, Moist mucous membranes
Respiratory: Decreased breath sounds on the right side
Cardiac: S1/S2 and Regular Rhythm
GI: Soft, Non Tender, Non Distended and Normal Bowel Sounds
Musculoskeletal: No Cyanosis and No Edema
Skin: Warm. Dry.
Neuro: AAO x 3 and Nonfocal/grossly intact
Psych: Calm
Assessment/Plan
54yo M came with SOB and pleuritic chest pain, CT showed concern for RLL necrotizing pneumonia and labs with new anemia with FOBT+ stool
#acute hypoxic respiratory failure secondary to necrotizing pneumonia
#RLL necrotizing pneumonia
#Moderate Right Pleural Effusion
#Sepsis Secondary to Pneumonia
-Vanco/ZOsyn
-Pulm consult
-ID consult
-Sputum Cx
-Continue suppplemental oxygen to maintain SpO2>90%
-Given worsening hypoxia, in the setting of patient's necrotizing pneumonia, patient transferred to IMU on 02/20/25
-IR consult for pleural drainage eval
#Chest Pain/Flank Pain with reports of pallor and diaphoresis in setting of worsening hypoxia
-Could simply be from patient's necrotizing pneumonia
-Consulted cardiology given chest pain and EKG changes: no concerns for ACS
-Echo with LVEF 65 to 70% and mild aortic stenosis
-Given flank pain and pallor, along with hypoxia and SOB, concern for reaction following PRBC transfusion on 02/20/25, ordered hemolysis labs and consulted hematology. Low suspicion for TACO or TRALI.
-Transferred to IMU
#Microcytic Anemia
follow CBC, transfuse to keep hgb>7
Received 1 unit PRBC on 02/20/25
GI consult
PPI drip
hold Anticoagulation/Antiplatelet medications
#Constipation on CT Imaging
#Mild Diverticulosis
#Mobile intraperitoneal cecum situated in the left upper quadrant
#Reactive thrombocytosis
follow
#hypokalemia
replete and follow
Magnesium normal
#Hyponatremia
# Anxiety
-Bupropion, doxepin, escitalopram continued
#Essential HTN
- continue Norvasc
#GERD - PPI
DVT Prophylaxis: SCDs only.
Code Status: Full Code
Anticipated Discharge: > 48 hours
Subjective/Interval History
-
Date of Service: February 20, 2025
Patient was seen and examined. He reported feeling better than when he presented to the hospital, this hospitalization. Later in the day, he developed more shortness of breath, more hypoxia, as well as chest pain and flank pain.
Objective Data
-
Labs:
Laboratory Results
02/20/25 02/20/25
00:03 05:41
WBC 19.4 H
Hgb 7.9 L 7.3 L
Hct 24.2 L 21.9 L
Plt Count 371
Sodium 132 L
Potassium 2.8 L
Chloride 101
Carbon Dioxide 24
BUN 7 L
Creatinine 0.6 L
Glucose 114 H
Calcium 7.5 L
Vital Signs:
Vital Signs
Temp Pulse Resp BP Pulse Ox
99.5 F 102 26 137/74 93
02/20/25 03:50 02/20/25 03:50 02/20/25 03:50 02/20/25 03:50 02/20/25 03:50
I&O
02/19/25 02/20/25 02/21/25
06:59 06:59 06:59
Intake Total 1929 / 1929
Output Total 800 / 800
Balance 1130 / 1130
[2025-02-20] MEDS: KCL 270 MEQ IV (07:37)
[2025-02-20] MEDS: LEXAPRO 20 MG PO (07:45)
[2025-02-20] MEDS: SINEQUAN 100 MG PO (07:45)
[2025-02-20] MEDS: WELLBUTRIN XL (24 hour extended release) 300 MG PO (07:45)
[2025-02-20] MEDS: NORVASC 10 MG PO (07:45)
--- NOTE | 2025-02-20 08:46 | PHA.VAN.FU ---
Vancomycin Assessment / Plan
- Assessment
Renal Function: Stable
WBC's are: Trending Up
In the past 24 hrs, patient has been: Febrile (TMAX 103.0 F (02/19/2025 @1116))
Concomitant Antimicrobials: PIPERACILLIN/TAZOBACTAM
- Dosing Plan
Adjust Regimen to: 1250MG Q8H
New Regimen Predicts: AUC (525), Peak (30.2), Trough (15.0)
- Monitoring Plan
No level(s) ordered at this time: CONSIDER LEVEL IN NEXT FEW DAYS
MRSA Screen: Ordered per protocol
- Follow Up
Pharmacy will continue to follow.
Vancomycin Follow UP
- -
Patient Age: 54
Patient Sex: Male
Vancomycin Day #: 2
Indication: Pulmonary/Respiratory
Requesting Provider: IGGY PATEL
Pertinent Antimicrobial Allergies:
AMOXICILLIN/CLAVULANIC ACID (RASH)
Height / Weight:
Height 6 ft
Actual Weight 102.058 kg
- Vital Signs / Lab Results
Temp Pulse Resp BP Pulse Ox
98.5 F 96 32 118/68 93
02/20/25 07:35 02/20/25 07:45 02/20/25 07:35 02/20/25 07:45 02/20/25 08:05
Lab Results - Hematology
02/19/25 02/20/25
11:23 05:41
WBC 17.5 H 19.4 H
Lab Results - Chemistry
02/19/25 02/20/25
11:23 05:41
BUN 14 7 L
Creatinine 0.7 0.6 L
Estimated Creat Clear > 125 > 125
Albumin 3.4 L
02/19/25
11:23
Lactic Acid 1.3
Microbiology Results
02/19/25 11:23 Influenza Types A & B (CJ) - Final
Nasal Swab Negative for Influenza A & B, NAAT
Negative results must be combined with clinical observations
and patient history.
Nucleic Acid Amplification test (NAAT)performed on the
[employer] platform.
--- NOTE | 2025-02-20 10:32 | PTCARENOTE ---
pt c/o chest pain and sob. pt diaphoretic and pale. pulse ox 88% on 3L. Increased O2 to 6L 94%. EKG and VS done. Dilaudid given for pain as per order. MD notified.
--- NOTE | 2025-02-20 11:17 | CON.CAR ---
Addendum entered and electronically signed by Malachi Mora MD 02/20/25 15:22:
Patient seen and examined in collaboration with CANDY STARCH MOLD PRINTER; agree with below.
- 54-year-old male with hypertension and obstructive sleep apnea admitted with right lower lobe necrotizing pneumonia; Cardiology was consulted for chest pain and an abnormal EKG (lateral ST/T wave abnormality).
- The patient is febrile and has a white count of almost 20,000, consistent with significant systemic infection.
- The patient had a hemoglobin of 7 on admission (with black stools) and was transfused blood; GI workup is recommended.
- Echocardiogram today revealed normal LVEF with normal regional wall motion; mild to moderate aortic stenosis was noted.
- The patient's cardiac enzymes are negative.
- The patient has reproducible chest pain that is worse with movement; therefore, the chest pain is non-cardiac appears to be musculoskeletal in etiology, exacerbated by his necrotizing pneumonia.
- The patient does not appear to have a primary cardiac issue; EKG changes are most likely secondary to underlying medical condition/illness.
- Recommend treatment as per Primary Hospitalist team and other Specialists; no further cardiac recommendations at this time.
- The patient can follow-up with Cardiology as an outpatient as it would not be unreasonable to obtain a stress test for ischemic evaluation at some point (has a family history of CAD), and for monitoring of progressive aortic stenosis over time.
Original Note:
Consultation
Consultation Request
Date/Time Consultation Requested: 02/20/25 1102
Date/Time Consultation Performed: 02/20/25 1110
Requesting Provider: Dr. Daniel
Performing Provider: Clare PATEL for Dr. Mora
Reason for Consultation: chest discomfort
Medical History
-
Chief Complaint: SOB
History of Present Illness:
54 y/o male with hypertension, hx ETOH abuse (no ETOH in year per patient), sleep apnea, anxiety, bradycardia who is here since he has been feeling poorly since Monday night. Main issue is SOB, but also has had chest tightness (worse with exertion,
coughing, deep breaths, certain positions). Also fever, chills, achiness. CT scan suggestive of necrotizing PNA. He was hypoxic and is on 6L NC. He has also had abdominal pain and black stools. He is seen to be anemic, with hgb as low as 7.1. He has
received a unit of PRBC's and seen by GI who plans for more testing once respiratory status has improved. He is seen to have severe hypokalemia as well, which is being replaced. He is in no distress at the time of my assessment, but does have
increased WOB. He feels somewhat improved since yesterday. We are consulted for the chest discomfort, which has been constant since Monday night in varying degrees. EKG shows SR wtih ST/T abnormalities laterally- EKG today stable from yesterday.
Trop yesterday was normal. Today's pending.
Past Medical History
Past Medical History: HTN and Other (as above)
Social History
Tobacco: Former Smoker (30 years ago)
Alcohol: Former
Drug: Marijuana and Other ('Kratum'- stopped 1 week ago)
Family History
Family History: Reviewed & Not Pertinent (no premature CAD) and Other (dad had CHF)
Allergies / Home Medications
Allergy/AdvReac Type Severity Reaction Status Date / Time
amoxicillin (From Augmentin) Allergy Rash - > Verified 02/19/25 12:46
20 years
ago
clavulanic acid (From Allergy Rash - > Verified 02/19/25 12:46
Augmentin) 20 years
ago
�Medication �Instructions �Recorded �Confirmed �Type
amlodipine 10 mg tablet (Norvasc) 10 mg PO DAILY Blood Pressure 11/27/23 02/19/25 History
aspirin 81 mg tablet 81 mg PO PRN PRN CARDIOVASCULAR 02/19/25 02/19/25 History
bupropion HCl 300 mg 24 hr tablet, 300 mg PO DAILY Mental 02/19/25 02/19/25 History
extended release Health/Anxiety
clonidine HCl 0.1 mg tablet 0.1 mg PO TIDPRN PRN BLOOD PRESSURE 02/19/25 02/19/25 History
doxepin 100 mg capsule 100 mg PO DAILY Mental 02/19/25 02/19/25 History
Health/Anxiety
escitalopram oxalate 20 mg tablet 20 mg PO DAILY Mental 02/19/25 02/19/25 History
Health/Anxiety
ibuprofen-diphenhydramine citrate 1 cap PO HS PRN PAIN 02/19/25 02/19/25 History
200 mg-38 mg tablet (Advil PM)
melatonin 10 mg tablet 10 mg PO HS PRN INSOMNIA 02/19/25 02/19/25 History
omeprazole 20 mg capsule,delayed 20 mg PO DAILYPRN PRN GERD 02/19/25 02/19/25 History
release
Review of Systems
-
History Source: Patient
All other systems: Negative unless noted
Constitutional: Fever, Fatigue and Chills
Respiratory: Cough and Trouble Breathing
Cardiac: Chest Pain and Diaphoresis
Abdomen/GI: Abdominal Pain and Black Stools
Physical Exam
Vital Signs
Temp Pulse Resp BP Pulse Ox
98.5 F 96 32 118/68 93
02/20/25 07:35 02/20/25 07:45 02/20/25 07:35 02/20/25 07:45 02/20/25 08:05
Lab Results
Troponin I < 0.012 ng/ml 02/19/25 11:23
Physical Exam
General: Well Developed, Well Nourished, No Apparent Distress and Other (mildly increased WOB)
Respiratory: Wheezes and Other (on O2 by NC)
Cardiac: Regular Rhythm (ST)
Neuro: AO x 3
Psych: Calm
Impression / Plan
-
PNA, necrotizing:
-severe- he is requiring hospitalization, IV ABX, and O2 by NC
-pulm consulted
-management per pulmonary and internal medicine teams
GIB/Anemia:
-s/p 1 unit PRBC's- transfusions per primary team. Follow closely.
-GI following and planning for invasive evaluation once respiratory status improves or if active bleed noted
Hypokalemia:
-severe
-replacements underway
-follow closely
Chest discomfort:
-present in varying degrees since Monday. Worse with exertion, cough, deep breath, certain positions. Trop on arrival normal. Next is pending. EKG shows ST/T abnormalities laterally; today's and yesterday's look similar. Patient with significant
anemia, hypokalemia as noted. Check echo.
-likely related to PNA/hypoxia/acute illness. Do not suspect ACS, but eval as above.
HTN:
-monitor
Hx bradycardia:
-tachycardia now in setting of acute illness
-follow telemetry
Data:
CAP CT: Moderate right pleural effusion. Hypodense pulmonary consolidation/pneumonia in the posterior right lower lobe, raising possibility of parenchymal necrosis. Borderline mediastinal adenopathy. Fat-containing hernia esophageal hiatus measuring
approximately 6 cm. Mild hepatomegaly. Mild fatty infiltration and a few tiny cysts suggested. Mild diverticulosis. No evidence of acute diverticulitis. Mobile intraperitoneal cecum situated in the left upper quadrant. Constipation with mild to
moderate fecal burden in the cecum and ascending colon. The appendix is not identified with certainty. No secondary signs of appendicitis.
Data Reviewed
-
EKG: Tracing Personally Visualized and interpreted (EKG ST, lateral ST/T abnormalities)
CT Scan: Report Reviewed by me (as noted )
Medical Tests (Nuc Med, Echo etc): Report Reviewed by me (Echo 10/02/23: Normal left ventricular size, wall thickness and systolic function. Normal right ventricular size and function. Indexed LA volume is moderately dilated. No significant
valvular disease. No pericardial effusion.)
Labs: Labs Reviewed by me
--- NOTE | 2025-02-20 11:40 | CON.ONC ---
Consultation
-
Date Consultation Requested: 02/20/25
Date Consultation Performed: 02/20/25
Requesting Provider: Leobardo Daniel
Performing Provider: [place]
Reason for Consultation: anemia
Impression
Impression
54yo M presented with SOB, myalgias, arthralgias and found to have a acute hypoxic respiratory failure, RLL necrotizing pneumonia
acute Anemia s/p 1U prbc 02/19/2025
heme positive/dark stool
flank pain
Plan
Plan
sepsis/PNA/abx per primary service/pulmonary
f/u GI evaluation for heme pos stool c/f ABLA/GIB, on PPI
check iron studies, b12, folate
transfusion reactions can occur days to weeks following a transfusion, however most commonly present 1-2 weeks after transfusion of RBC. He has no evidence of post transfusion purpura. He is AB positive and received an AB positive product. I have
spoken with the blood bank regarding concern for a delayed transfusion reaction and ordered transfusion reaction protocol which blood back will initiate stat.
We will continue to follow along
Patient History
History of Present Illness
54yo M SOB, fever, chills, productive cough and dark stool. He reports that fever, chills, and cough started Monday night. He had 1 dark stool since Monday. His initial evaluation was notable a Tmax 103F, hypoxia requiring supplemental O2, a WBC
17.5, ANC 16.3, Hgb 7.1, MCV 76, platelet count 394, sodium 131, potassium 2.5, BUN 14, creatinine 0.7, LFTs are without significant abnormalities. He did have a heme positive stool. His CT CAP w IV contrast was notable for RLL necrotizing
pneumonia, moderate right pleural effusion, borderline mediastinal adenopathy, mild hepatomegaly 19cm, fatty liver, mild diverticulosis, constipation, and pancreatic atrophy. He was admitted, stated on IV cefepime, IV vanco, and received 1U PRBC.
Hematology is consulted due to flank pain concern for delayed transfusion reaction. He tells me that the right sided flank pain is not new and has been present along with arthralgias and myalgias since Monday.
In brief, He received 1U AB positive PRBC around 3pm 02/19, T&S notes AB positive recipient. His Hgb improved from 7.1 to 8.2 today. His post transfusion LFTs remain unchanged and LDH is normal. Today's CXR showed increased opacity associated with the
right hemithorax. Bcx are negative to date. His historic Hgb baseline in 2023 ranged from 14.3-12.1. He takes NSAIDs and ASA.
Clinically, denies chest pain, palpations, n/v, or abdominal pain. He endorses constipation and flank pain. He has been having fever and chills since Monday. He denies any recent GI evalution, however, notes >30 years ago that he was told he had
ulcers or esophagitis.
Impoved fever curve to Tmax 100F, no hypotension, worsening O2 requirements to 6L NC.
Past-Medical/Surgical History
past medical history of hypertension, anxiety, alcohol abuse, GERD
PSH denies
Social former smoker, former ETOH abuse, former recreational Kraton, THC, and Vicodin use. 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
family denies malignancy
Patient Medication
�Medication �Instructions �Recorded �Confirmed �Last Taken �Type
amlodipine 10 mg tablet (Norvasc) 10 mg PO DAILY Blood Pressure 11/27/23 02/19/25 02/18/25 History
aspirin 81 mg tablet 81 mg PO PRN PRN CARDIOVASCULAR 02/19/25 02/19/25 02/19/25 History
bupropion HCl 300 mg 24 hr tablet, 300 mg PO DAILY Mental 02/19/25 02/19/25 02/18/25 History
extended release Health/Anxiety
clonidine HCl 0.1 mg tablet 0.1 mg PO TIDPRN PRN BLOOD PRESSURE 02/19/25 02/19/25 02/18/25 History
doxepin 100 mg capsule 100 mg PO DAILY Mental 02/19/25 02/19/2525 History
Health/Anxiety
escitalopram oxalate 20 mg tablet 20 mg PO DAILY Mental 02/19/25 02/19/25 02/18/25 History
Health/Anxiety
ibuprofen-diphenhydramine citrate 1 cap PO HS PRN PAIN 02/19/25 02/19/25 Unknown History
200 mg-38 mg tablet (Advil PM)
melatonin 10 mg tablet 10 mg PO HS PRN INSOMNIA 02/19/25 02/19/25 Unknown History
omeprazole 20 mg capsule,delayed 20 mg PO DAILYPRN PRN GERD 02/19/25 02/19/25 02/18/25 History
release
Active Medications
Generic Name Dose Route Start Last Admin
Trade Name Freq PRN Reason Stop Dose Admin
Acetaminophen 650 mg 02/19/25 17:22 02/20/25 05:18
Acetaminophen 325 Mg Tablet PO 03/19/25 17:21 650 mg
Q4HPRN PRN Administration
if temp > 101 F
Albuterol/Ipratropium 3 ml 02/20/25 11:38
Ipratropium 0.5/Albuterol 3 Mg (3 Ml Ampul) INH
R Q4HPRN PRN
wheezing/shortness of breath
Protocol
Amlodipine Besylate 10 mg 02/20/25 08:00 02/20/25 07:45
Amlodipine 10 Mg Tablet PO 03/20/25 07:59 10 mg
DAILY SHEELA Administration
Bupropion HCl 300 mg 02/20/25 08:00 02/20/25 07:45
Bupropion (24hr) Extended Release 300 Mg Tablet PO 03/20/25 07:59 300 mg
DAILY SHEELA Administration
Doxepin HCl 100 mg 02/20/25 08:00 02/20/25 07:45
Doxepin 50 Mg Capsule PO 03/20/25 07:59 100 mg
DAILY SHEELA Administration
Escitalopram Oxalate 20 mg 02/20/25 08:00 02/20/25 07:45
Escitalopram 20 Mg Tablet PO 03/20/25 07:59 20 mg
DAILY SHEELA Administration
Hydromorphone HCl 1 mg 02/19/25 18:33 02/20/25 09:56
Hydromorphone 1 Mg/Ml Carpuject IV 03/05/25 18:32 1 mg
Q4HPRN PRN Administration
severe pain
Pantoprazole Sodium 80 mg in 100 mls @ 10 mls/hr 02/19/25 17:22 02/20/25 03:13
Protonix IV 100 mls
Q10H SHEELA Administration
8 MG/HR
Piperacillin Sod/Tazobactam Sod 3.375 gram in 50 mls @ 100 mls/hr 02/19/25 18:00 02/20/25 05:00
Zosyn IV 50 mls
Q6H SHEELA Administration
Vancomycin HCl 1,250 mg/ 275 mls @ 183.33 mls/hr 02/20/25 14:00
Sodium Chloride IV
Q8H SHEELA
Melatonin 10 mg 02/19/25 18:00
Melatonin 5 Mg Tablet PO 03/19/25 17:59
HSPRN PRN
INSOMNIA
Sodium Chloride 0 flush 02/19/25 18:00
Sodium Chloride 0.9% (Flush) Syringe IV 03/19/25 17:59
PER PROTOCOL SHEELA
Review of Systems
-
ROS is notable for HPI, otherwise negative
Physical Exam
-
General: Well Developed, Well Nourished and No Apparent Distress
HEENT: Moist Mucous Membranes; Negative Jaundice
Cardiology: Normal Sinus Rhythm
Pulmonary: Clear
GI: Soft
Extremities: Pulses Present; Negative Edema
Neurology: Non Focal
Skin: Warm
Psych: Calm
Labs
Lab Results
WBC 19.4 10^3/uL (4.8-10.8) H 02/20/25 05:41
RBC 2.88 10^6/uL (4.70-6.10) L 02/20/25 05:41
Hgb 7.3 g/dL (13.0-18.0) L 02/20/25 05:41
Hct 21.9 % (39.0-52.0) L 02/20/25 05:41
MCV 76.0 fL (80.0-94.0) L 02/20/25 05:41
MCH 25.3 pg (27.0-31.0) L 02/20/25 05:41
MCHC 33.3 g/dL (33.0-37.0) 02/20/25 05:41
RDW 15.6 % (11.5-14.5) H 02/20/25 05:41
Plt Count 371 10^3/uL (130-400) 02/20/25 05:41
MPV 10.0 fL (7.4-10.4) 02/20/25 05:41
Abs Immat Gran (auto) 0.2 10^3/uL (0-0.05) H 02/19/25 11:23
Absolute Neuts (auto) 16.1 10^3/uL (1.4-6.5) H 02/19/25 11:23
Absolute Lymphs (auto) 0.5 10^3/uL (1.2-3.4) L 02/19/25 11:23
Absolute Monos (auto) 0.7 10^3/uL (0.1-0.6) H 02/19/25 11:23
Absolute Eos (auto) 0.1 10^3/uL (0-0.7) 02/19/25 11:23
Absolute Basos (auto) 0.1 10^3/uL (0-0.2) 02/19/25 11:23
Immature Gran % 0.9 % (0-0.5) H 02/19/25 11:23
Neutrophils % 91.9 % (42.2-75.2) H 02/19/25 11:23
Lymphocytes % 2.7 % (20.5-51.1) L 02/19/25 11:23
Monocytes % 3.9 % (1.7-9.3) 02/19/25 11:23
Eosinophils % 0.3 % (0-6) 02/19/25 11:23
Basophils % 0.3 % (0-2) 02/19/25 11:23
Creatinine 0.6 mg/dL (0.7-1.3) L 02/20/25 05:41
Vital Signs
Vital Signs
Temp Pulse Resp BP Pulse Ox
98.5 F 96 32 118/68 93
02/20/25 07:35 02/20/25 07:45 02/20/25 07:35 02/20/25 07:45 02/20/25 08:05
[2025-02-20 11:46] LABS: % Basophils 0.2 % (0-2); % Eosinophils 2.4 % (0-6); % Lymphocytes 3.4 % (20.5-51.1); % Monocytes 3.7 % (1.7-9.3); % Neutrophils 89.3 % (42.2-75.2); Absolute Eosinophils 0.4 10^3/uL (0-0.7); Absolute Immature Granulocytes 0.2 10^3/uL (0-0.05); Absolute Lymphocytes 0.6 10^3/uL (1.2-3.4); Absolute Monocytes 0.7 10^3/uL (0.1-0.6); Absolute Neutrophils 16.3 10^3/uL (1.4-6.5); Hematocrit 25.4 % (39.0-52.0); Hemoglobin 8.2 g/dL (13.0-18.0); Mean Corp Hgb Conc. 32.3 g/dL (33.0-37.0); Mean Corpuscular Hgb 24.8 pg (27.0-31.0); Mean Corpuscular Volume 76.7 fL (80.0-94.0); Mean Platelet Volume 9.7 fL (7.4-10.4); Nucleated Red Blood Cells % 0 % (-); Platelet Count 394 10^3/uL (130-400); Red Blood Cell Count 3.31 10^6/uL (4.70-6.10); Red Cell Dist. Width 15.6 % (11.5-14.5); Reticulocyte Count 2.4 % (0.4-2.8); White Blood Cell Count 18.3 10^3/uL (4.8-10.8)
[2025-02-20] MEDS: DUONEB 3 ML INH (11:50)
[2025-02-20 11:52] LABS: ALT (SGPT) 13 U/L (0-50); AST (SGOT) 12 U/L (17-59); Albumin 2.9 g/dl (3.5-5.0); Alkaline Phosphatase 81 U/L (38-126); Blood Urea Nitrogen 7 mg/dl (9-20); Calcium 7.8 mg/dl (8.4-10.2); Carbon Dioxide 25 mmol/L (22-30); Chloride 106 mmol/L (98-107); Estimated Creatinine Clearance > 125 ml/min; Glucose 118 mg/dl (70-99); LDH 172 U/L (120-246); Magnesium 2.3 mg/dl (1.6-2.3); Potassium 3.3 mmol/L (3.5-5.1); Sodium 137 mmol/L (135-145); Total Bilirubin 0.4 mg/dl (0.2-1.3); Total Protein 5.2 g/dl (6.3-8.2); eGFR > 60.00
[2025-02-20 12:04] LABS: NT-proBNP 551 pg/ml; Troponin I < 0.012 ng/ml
[2025-02-20 12:40] LABS: Anisocytosis 1+; Normal RBC Morphology No; Ovalocytes 1+; Spherocytes 1+
[2025-02-20 12:41] LABS: Target Cells 1+
--- NOTE | 2025-02-20 12:45 | TRANSFER ---
pt transferred to IMU room 3342. Report given to MAURIZIO August. belongings sent with the pt.
--- NOTE | 2025-02-20 13:32 | PTCARENOTE ---
Received patient on transfer from 4th floor via bed. T 101.6 ax on arrival; tylenol given as ordered. POx 87-88% on 6L n/c; resp changed to midflow and increased oxygen to 10L. POx 96%. Lungs coarse with exp wheezing t/o. Per blood bank, patient
being worked up for possible delayed post-transfusion reaction. Labs drawn and sent: requested pink top and urine. Patient then will have SST drawn at 17:00. Bedside echo currently being done; cardiology on the floor and aware. Seen by heme/onc at
bedside.
[2025-02-20] MEDS: VANCOCIN 275 MG IV ×2 (14:12→22:47)
--- NOTE | 2025-02-20 14:57 | CON.PUL ---
Consultation
Consultation Request
Date/Time Consultation Requested: 02/20/2025
Date/Time Consultation Performed: 02/20/2025
Requesting Provider: Dr. Mckinnon
Performing Provider: Dr. Ruslan Coles
Reason for Consultation: Necrotizing pneumonia
Medical History
-
History of Present Illness:
54-year-old man with past medical history significant for hypertension, anxiety, alcohol abuse, presented to the emergency room on 02/19/2025 complaining of shortness of breath with exertion. Also pleuritic type chest pain.
Cough that is somewhat productive. Feeling dizzy complaining of headache.
He complains of generalized body aches.
Denies any nausea, vomiting or swallowing dysfunction.
He also noticed some black stool since yesterday.
On arrival to the emergency room [address] of the chest showed right lower lobe necrotizing pneumonia with a pleural effusion.
He was placed on broad-spectrum antibiotics.
We were consulted on 02/20/2025 for evaluation of his necrotizing pleural effusion.
Patient currently states that his right pleuritic type pain is controlled
He is currently on 12 L nasal cannula
Past Medical History
Past Medical History: Other (See assessment and plan)
Social History
Tobacco: Former Smoker
Alcohol: Daily
Drug: None
Family History
Family History: Reviewed & Not Pertinent
Allergies / Home Medications
Allergies
Allergy/AdvReac Type Severity Reaction Status Date / Time
amoxicillin (From Augmentin) Allergy Rash - > Verified 02/19/25 12:46
20 years
ago
clavulanic acid (From Allergy Rash - > Verified 02/19/25 12:46
Augmentin) 20 years
ago
Home Medications
�Medication �Instructions �Recorded �Confirmed �Last Taken �Type
amlodipine 10 mg tablet (Norvasc) 10 mg PO DAILY Blood Pressure 11/27/23 02/19/25 02/18/25 History
aspirin 81 mg tablet 81 mg PO PRN PRN CARDIOVASCULAR 02/19/25 02/19/25 02/19/25 History
bupropion HCl 300 mg 24 hr tablet, 300 mg PO DAILY Mental 02/19/25 02/19/25 02/18/25 History
extended release Health/Anxiety
clonidine HCl 0.1 mg tablet 0.1 mg PO TIDPRN PRN BLOOD PRESSURE 02/19/25 02/19/25 02/18/25 History
doxepin 100 mg capsule 100 mg PO DAILY Mental 02/19/25 02/19/25 02/18/25 History
Health/Anxiety
escitalopram oxalate 20 mg tablet 20 mg PO DAILY Mental 02/19/25 02/19/25 02/18/25 History
Health/Anxiety
ibuprofen-diphenhydramine citrate 1 cap PO HS PRN PAIN 02/19/25 02/19/25 Unknown History
200 mg-38 mg tablet (Advil PM)
melatonin 10 mg tablet 10 mg PO HS PRN INSOMNIA 02/19/25 02/19/25 Unknown History
omeprazole 20 mg capsule,delayed 20 mg PO DAILYPRN PRN GERD 02/19/25 02/19/25 02/18/25 History
release
Review of Systems
-
History Source: Patient
All other systems: Negative unless noted
Vitals / Labs / Diagnostic Testing
Vital Signs
Temp Pulse Resp BP Pulse Ox
101.6 F H 109 23 126/70 92
02/20/25 12:30 02/20/25 14:45 02/20/25 14:45 02/20/25 14:00 02/20/25 14:45
Lab Data
02/20/25 11:27
Microbiology
02/19/25 11:51 Blood/Venous Blood Culture - Preliminary
No Growth in 24 hours- Final report to follow
02/19/25 11:52 Blood/Venous Blood Culture - Preliminary
No Growth in 24 hours- Final report to follow
02/20/25 07:41 Nose Nasal Screen MRSA (PCR) - Final
MRSA not detected - performed by PCR methodology.
02/19/25 11:23 Nasal Swab Influenza Types A & B (CJ) - Final
Negative for Influenza A & B, NAAT
Negative results must be combined with clinical observations
and patient history.
Nucleic Acid Amplification test (NAAT)performed on the
[employer] platform.
Diagnostic Testing:
Physical Exam
-
HEENT: Normocephalic
Cardiovascular: S1/S2
Respiratory: Wheeze (n) and Other (Decreased breath sounds in the right)
GI: Soft and Non Distended
Neurology: Awake, Alert and Oriented
Skin: Warm
General: Respiratory Distress (Mild with activity)
Assessment
-
54-year-old man with past medical history noted. Admitted with 2-3 day history of shortness of breath, pleuritic type chest pain, fevers.. Generalized malaise. Black stools. Found to have right lower lobe pneumonia possibly necrotizing with
associated pleural effusion
Acute respiratory failure secondary to pneumonia-[address] chest: Showed right lower lobe possible necrotizing pneumonia with associated pleural effusion.
Sepsis due to above: Leukocytosis/fever/tachypnea.
Pleuritic type chest pain
Acute blood loss anemia-reports black stools.
-
Hypokalemia
Hyponatremia
Conditions present prior admission:
Alcohol abuse
Anxiety
Hypertension
GERD
Assessment and plan:
Clinical picture consistent with bacterial pneumonia/So far no evidence for pulmonary abscess: Possibly complicated aspiration pneumonia.
Cannot rule out empyema
CT of the chest reviewed: Showed significant right lower lobe infiltrate with possible necrosis. Associated moderate pleural effusion. Borderline mediastinal adenopathy.
-
Agree with antibiotics Zosyn/vancomycin.
Infectious disease has been consulted sputum
Sputum culture
MRSA screening negative
Blood culture negative to date so far
Influenza negative
-
Currently on 12 L of supplemental oxygen.
Hopefully thoracentesis will help.
Maintain pulse ox above 90%.
-
Will contact interventional radiology for a diagnostic thoracentesis plus or minus chest tube depending on fluid characteristics.
Order has been placed.
-
Former smoker without evidence of COPD.
Secretion clearance interventions
DuoNebs as needed
Acapella device
-
Per patient he has not drank alcohol in a year.
-
Anemia: Blood loss. Status post transfusion
Monitor for bleeding
Hemoglobin responded appropriately
-
Chest pain: Likely pleuritic
Echocardiogram showed normal LVEF. Mild . No RV dysfunction or regional motion wall abnormalities
Analgesia per primary team.
-
Hypokalemia being repleted
Hyponatremia likely due to severe pneumonia
-
Will follow
-
Dr. Coles updated sister and parents at the bedside 02/20/2025 3:30 PM. Images of the chest were reviewed.
Respiratory status is tenuous.
Data Reviewed
-
Radiology: Image personally visualized and interpreted
CT Scan: Image personally visualized and interpreted, Discussed with Physician and Discussed with Family
Labs: Labs reviewed by me, Discussed with Physician and Discussed with Family
--- NOTE | 2025-02-20 15:05 | CON.ID ---
Consultation
-
Date/Time Consultation Requested: 02/20/2025 1101
Date/Time Consultation Performed: 02/20/2025 1430
Requesting Provider: Dr. Daniel
Performing Provider: Dr. Lerner
Reason for Consultation: Pneumonia
Chief Complaint / Past History
History of Present Illness
Luis Lopez is a 54-year-old man with a significant past medical history of alcohol abuse being evaluated at the request of Dr. Daniel regarding pneumonia. History is obtained from chart review, along with patient interview.
The patient reportedly was in his usual state of health until several days prior to admission when he developed a right-sided chest pain with associated shortness of breath and progressive cough. No history of nausea or vomiting. No noted dyspnea
on exertion, but he noted that it was difficult to take a deep breath. Cough is minimally productive. Denies hemoptysis. He also reported generalized malaise and some right sided abdominal discomfort.
Upon arrival in the ER, he was noted to be hypoxic. Initial labs revealed a leukocytosis. And a CAT scan revealed a large right-sided pneumonia with possible parenchymal necrosis. The patient has been started on empiric antibiotics, and
Infectious Diseases is asked to comment upon further antibiotic management.
Patient denies any recent travel. No sick contacts. No recent episodes of vomiting, but has noted coughing over the past several weeks. No prior episodes of similar.
Past History
Additional Past Medical History:
Anxiety/depression
Hypertension
Alcohol abuse
Past Surgical History: None
Allergy History:
amoxicillin (From Augmentin) Allergy (Verified 02/19/25 12:46)
Rash - > 20 years ago
clavulanic acid (From Augmentin) Allergy (Verified 02/19/25 12:46)
Rash - > 20 years ago
Medications Reviewed: Yes
Current Antibiotics:
Vancomycin (dosing per pharmacy)
Zosyn 3.375 g IV every 6 hours
Social History
Tobacco: Former Smoker
Alcohol: Former
Drug: Other (Kratom)
Personal: Single
Living: With Family
Family History
Family History: Not Pertinent
Review of Systems
Vital Signs
Temp Pulse Resp BP Pulse Ox
101.6 F H 109 23 126/70 95
02/20/25 12:30 02/20/25 14:45 02/20/25 14:45 02/20/25 14:00 02/20/25 14:55
Physical Exam
Physical Exam
Constitutional: No Acute Distress, Acutely Ill and Non-toxic
Head: Normocephalic
Eyes: Pupils Equal, Pupils Round, No Conjunctival Hemorrhage and Sclera Anicteric
Oral: No Thrush and No Ulcers
Cardiovascular: Regular Rate and S1/S2; Negative S3/S4
Pulmonary: Coarse and Other (Mildly labored. Decreased breath sounds on the right side.)
Gastrointestinal: Soft, Non Tender, Non Distended, Normal Bowel Sounds, No Rebound and No Guarding
Extremities: Negative Edema, Cyanosis or Erythema
Skin: Warm and Dry; Negative Rash or Jaundice
Neurological: Awake and Alert
Psychological: Calm
Lab / Diagnostic Study Results
02/20/25 11:27
Abs Immat Gran (auto) 0.2 10^3/uL (0-0.05) H 02/20/25 11:27
Absolute Neuts (auto) 16.3 10^3/uL (1.4-6.5) H 02/20/25 11:27
Absolute Lymphs (auto) 0.6 10^3/uL (1.2-3.4) L 02/20/25 11:27
Absolute Monos (auto) 0.7 10^3/uL (0.1-0.6) H 02/20/25 11:27
Absolute Basos (auto) 0.0 10^3/uL (0-0.2) 02/20/25 11:27
Immature Gran % 1.0 % (0-0.5) H 02/20/25 11:27
Neutrophils % 89.3 % (42.2-75.2) H 02/20/25 11:27
Lymphocytes % 3.4 % (20.5-51.1) L 02/20/25 11:27
Monocytes % 3.7 % (1.7-9.3) 02/20/25 11:27
Eosinophils % 2.4 % (0-6) 02/20/25 11:27
Basophils % 0.2 % (0-2) 02/20/25 11:27
Lactic Acid 1.3 mmol/L (0.7-2.0) 02/19/25 11:23
Microbiology Results
Micro:
02/19/25 11:51 Blood Culture - Preliminary
Blood/Venous No Growth in 24 hours- Final report to follow
02/19/25 11:52 Blood Culture - Preliminary
Blood/Venous No Growth in 24 hours- Final report to follow
02/20/25 07:41 Nasal Screen MRSA (PCR) - Final
Nose MRSA not detected - performed by PCR methodology.
02/19/25 11:23 Influenza Types A & B (CJ) - Final
Nasal Swab Negative for Influenza A & B, NAAT
Negative results must be combined with clinical observations
and patient history.
Nucleic Acid Amplification test (NAAT)performed on the
[employer] platform.
Imaging:
02/19/2025 CT chest/abdomen/pelvis: Moderate right pleural effusion. Hypodense pulmonary consolidation/pneumonia in the posterior right lower lobe. Concern for the possibility of parenchymal necrosis is noted. Borderline mediastinal adenopathy.
Mild hepatomegaly. Mild fatty infiltration. Mild diverticulosis without evidence for diverticulitis. Please see full dictation for additional detail.
Assessment / Plan
Right-sided pneumonia with concern for possible parenchymal necrosis/abscess
Leukocytosis
Fever
Anxiety/depression
Hypertension
Alcohol abuse
Recommendations:
Case discussed with Pulmonary.
Patient to be evaluated by IR this evening for possible chest tube placement and thoracentesis. Please send appropriate cultures.
Continue with empiric vancomycin and Zosyn at current dosing.
Await sputum culture.
MRSA screen noted to be negative. If no gram-positive cocci seen on thoracentesis sample, will discontinue further vancomycin.
Follow white count and temperature curve.
Further recommendations as additional data is returned.
--- NOTE | 2025-02-20 16:05 | CM ---
CM reviewed chart, patient seen bedside with mother and brother, initial assessment completed. Patient resides with his mother and brother in a multiple story home, one step to enter, bedroom in basement, five steps down, landing, then another five
steps. Patient is independent with ADLs/IADLs, currently on O2, does not wear home O2. Patient denies VN/SNF history. Patient confirms PCP Giovanna Morgan, pharmacy [facility]. ID in to speak with patient, CM will continue to follow for all
discharge planning needs.
Plan; return home likely when stable, will follow patient progress.
--- NOTE | 2025-02-20 16:34 | PTCARENOTE ---
Patient to [facility] for chest tube placement via bed accompanied by this RN and volunteer; midflow oxygen in use @15L for transport. T 101.6 ax prior to transport; Dr Coles, Dr Lerner and [facility] RNs aware.
--- NOTE | 2025-02-20 16:34 | W.PN.GI.CBS2 ---
Today's Communication / Plan
-
monitor HB
Continue antibiotics as recommended by ID and pulmonary
Assessment / Plan
-
54-year-old male who presented with shortness of breath, fevers, chills and a cough and has been diagnosed with right lower lobe necrotizing pneumonia and has been started on broad-spectrum antibiotics currently on Zosyn and vancomycin and also
being evaluated for possible chest tube placement and thoracenteses today for worsening SOB
Also has anemia with recent history of melena and OB positive with brown stool in the ER. Hemoglobin stable posttransfusion
Anemia most likely could be related to peptic ulcer disease since he takes Advil PM daily and also takes aspirin versus angioectasias versus less likely neoplasm.
Agree with Protonix will Dc gtt and will change to twice daily
will schedule endoscopy and colonoscopy when respiratory status is improved, can be done as outpatient since he currently has no active bleeding sooner as IP if he has active bleeding
Will sign off and will be available as needed
Subjective
Subjective
Date of Service: February 20, 2025
worsening shortness of breath and was transferred to IMU has been seen by ID and pulmonary
No BM or melena since admission
Hemoglobin stable posttransfusion 02/19
Objective
Data Reviewed
Laboratory Data:
Laboratory Results
02/20/25 11:27
Laboratory Results
Magnesium 2.3 mg/dl (1.6-2.3) 02/20/25 11:27
Total Bilirubin 0.4 mg/dl (0.2-1.3) 02/20/25 11:27
AST 12 U/L (17-59) L 02/20/25 11:27
ALT 13 U/L (0-50) 02/20/25 11:27
Alkaline Phosphatase 81 U/L (38-126) 02/20/25 11:27
Lipase 20 U/L (23-300) L 02/19/25 11:23
Vital Signs and I&O:
Vital Signs
Temp Pulse Resp BP Pulse Ox
101.6 F H 105 33 124/71 95
02/20/25 16:00 02/20/25 16:26 02/20/25 16:26 02/20/25 16:26 02/20/25 16:26
I&O
02/19/25 02/20/25 02/21/25
06:59 06:59 06:59
Intake Total 1930 / 1930 720 / 720
Output Total 800 / 800 1250 / 1250
Balance 1130 / 1130 -530 / -530
Physical Exam
Physical Exam
Cardiology: Normal Sinus Rhythm
Pulmonary: Other (Decreased breath sounds at the right base with a few crackles and rhonchi)
GI: Non Distended, Non Tender and Normal Bowel Sounds
[2025-02-20 18:24] LABS: Body Fluid pH 7.29
[2025-02-20 18:33] LABS: Body Fluid Mononuclear 11.4 %; Body Fluid Polymorphonuclear 88.6 %; Body Fluid WBC 3041 /CUMM
--- NOTE | 2025-02-20 18:44 | PTCARENOTE ---
Patient returned from [facility] via bed accompanied by this RN and PCT after R chest tube insertion. Yellow drainage noted initially. Patient placed on 20cm suction once arrived to room as per order. T 102.2 orallyl; tylenol administered per prn order.
Patient c/o pain/spasm at chest tube insertion site; administered dilaudid as per prn order. Patient on 8L midflow and 94%. Family at bedside.
[2025-02-20 18:46] LABS: Body Fluid Amylase < 30 U/L; Body Fluid Glucose 69 mg/dl; Body Fluid Protein 3.6 g/dl; Body Fluid Triglycerides < 30 mg/dl
[2025-02-20 18:47] LABS: Body Fluid Second Tech EYM
[2025-02-20 18:58] LABS: Body Fluid LDH 1219 U/L
[2025-02-20 19:43] LABS: 5Hr. Total Bilirubin 0.5 mg/dl (0.2-1.3); Potassium 3.1 mmol/L (3.5-5.1)
--- NOTE | 2025-02-20 21:00 | PTCARENOTE ---
Pt received from adrienne RN. Pt AAOx3, c/o lower back pain Pt given ordered pain medication per pain level, See MAR. chest tube preset to R chest at 20 cm suction per order. Clear liquid diet maintained. assessment as documented. call light in
reach.
[2025-02-20] MEDS: KCL 40 MEQ PO (21:21)
[2025-02-21] VITALS (14 sets, daily range): BP systolic 107–138; BP diastolic 65–92; PULSE 110; O2SAT 94
[2025-02-21] MEDS: PROTONIX 100 IV (00:31)
[2025-02-21] MEDS: DILAUDID 1 MG IV ×2 (04:53→18:44)
[2025-02-21] MEDS: DUONEB 3 ML INH (05:00)
[2025-02-21 05:34] LABS: Hematocrit 23.3 % (39.0-52.0); Hemoglobin 7.7 g/dL (13.0-18.0); Mean Corpuscular Hgb 25.3 pg (27.0-31.0); Mean Corpuscular Volume 76.6 fL (80.0-94.0); Mean Platelet Volume 9.6 fL (7.4-10.4); Platelet Count 379 10^3/uL (130-400); Red Blood Cell Count 3.04 10^6/uL (4.70-6.10); Red Cell Dist. Width 15.9 % (11.5-14.5); White Blood Cell Count 15.8 10^3/uL (4.8-10.8)
[2025-02-21 06:03] LABS: Blood Urea Nitrogen 7 mg/dl (9-20); Calcium 7.5 mg/dl (8.4-10.2); Carbon Dioxide 23 mmol/L (22-30); Chloride 106 mmol/L (98-107); Estimated Creatinine Clearance > 125 ml/min; Glucose 93 mg/dl (70-99); Potassium 3.4 mmol/L (3.5-5.1); Sodium 134 mmol/L (135-145); eGFR > 60.00
[2025-02-21] MEDS: ZOSYN 50 IV ×3 (06:17→17:03)
[2025-02-21] MEDS: VANCOCIN 275 MG IV (06:17)
[2025-02-21] MEDS: KCL 20 MEQ PO (06:53)
--- NOTE | 2025-02-21 07:29 | W.PN.HOSP.TC ---
Today's Communication/Plan
-
Replace potassium
Continue antibiotics
SCDs for DVT prophylaxis
Continue chest tube
Assessment / Plan
Assessment / Plan
Physical Exam
General: Not in acute distress
HEENT: Normocephalic, Moist mucous membranes
Respiratory: Decreased breath sounds on the right side
Cardiac: S1/S2 and Regular Rhythm
GI: Soft, Non Tender, Non Distended and Normal Bowel Sounds
Musculoskeletal: No Cyanosis and No Edema
Skin: Warm. Dry.
Neuro: AAO x 3 and Nonfocal/grossly intact
Psych: Calm
Assessment/Plan
54yo M came with SOB and pleuritic chest pain, CT showed concern for RLL necrotizing pneumonia and labs with new anemia with FOBT+ stool
#acute hypoxic respiratory failure secondary to necrotizing pneumonia
#RLL necrotizing pneumonia with complicated parapneumonic effusion
#Moderate Right Pleural Effusion
#Sepsis Secondary to Pneumonia
-Chest Tube placed on 02/21/25
-Follow pleural fluid studies
-Continue Zosyn. Vancomycin stopped since MRSA negative.
-Pulm consult
-ID consult
-Sputum Cx
-Blood cultures with no growth to date
-Legionella and Strep urine antigen tests
-Continue supplemental oxygen to maintain SpO2>90% - currently on 7 L of supplemental oxygen
-Given worsening hypoxia, in the setting of patient's necrotizing pneumonia, patient transferred to IMU on 02/20/25
-IR consult for pleural drainage --> chest tube placed on 02/21/25
#Chest Pain/Flank Pain with reports of pallor and diaphoresis in setting of worsening hypoxia
-Could simply be from patient's necrotizing pneumonia
-Consulted cardiology given chest pain and EKG changes: no concerns for ACS
-Echo with LVEF 65 to 70% and mild aortic stenosis
-Given flank pain and pallor, along with hypoxia and SOB, concern for reaction following PRBC transfusion on 02/20/25, ordered hemolysis labs and consulted hematology. Based on labs hematolytic reaction unlikely. Low suspicion for TACO or TRALI.
-Transferred to IMU
-Appreciate hematology
#Microcytic Anemia
#Recent history of melena and OB positive with brown stool in the ER
follow CBC, transfuse to keep hgb>7
Received 1 unit PRBC on 02/20/25
GI consult: endoscopy and colonoscopy when respiratory status is improved, can be done as outpatient since he currently has no active bleeding but sooner as inpatient if he has active bleeding
Continue Protonix 40 mg BID
hold Anticoagulation/Antiplatelet medications
Avoid IV iron given infection above
#Constipation on CT Imaging
#Mild Diverticulosis
#Mobile intraperitoneal cecum situated in the left upper quadrant
#Reactive thrombocytosis
follow
#hypokalemia
Replacements ordered
Magnesium normal
#Hyponatremia
# Anxiety
-Bupropion, doxepin, escitalopram continued
#Essential HTN
- continue Norvasc
#GERD - PPI
DVT Prophylaxis: SCDs only.
Code Status: Full Code
Anticipated Discharge: > 48 hours
Subjective/Interval History
-
Date of Service: February 21, 2025
Patient was seen and examined. He reported feeling better, denied any new symptoms or complaints.
Objective Data
-
Labs:
Laboratory Results
02/20/25 02/21/25
19:14 05:17
WBC 15.8 H
Hgb 7.7 L
Hct 23.3 L
Plt Count 379
Sodium 134 L
Potassium 3.1 L 3.4 L
Chloride 106
Carbon Dioxide 23
BUN 7 L
Creatinine 0.5 L
Glucose 93
Calcium 7.5 L
Vital Signs:
Vital Signs
Temp Pulse Resp BP Pulse Ox
98.8 F 106 30 138/78 91
02/21/25 03:48 02/21/25 06:55 02/21/25 06:55 02/21/25 06:55 02/21/25 06:55
I&O
02/20/25 02/21/25 02/22/25
06:59 06:59 06:59
Intake Total 1930 / 1930 1555 / 1555
Output Total 800 / 800 3500 / 3500 130 / 130
Balance 1130 / 1130 -1945 / -194 -130 / -130
[2025-02-21] MEDS: NORVASC 10 MG PO (07:59)
[2025-02-21] MEDS: WELLBUTRIN XL (24 hour extended release) 300 MG PO (07:59)
[2025-02-21] MEDS: LEXAPRO 20 MG PO (07:59)
[2025-02-21] MEDS: SINEQUAN 100 MG PO (07:59)
--- NOTE | 2025-02-21 08:20 | W.PN.ONC2 ---
Today's Communication / Plan
-
follow up transfusion protocol final results -if negative then will sign off and see pt in the office in 4-6 weeks for follow up regarding continued management of anemia
I would avoid parentaral iron supplementation in the setting of acute infection
Impression
Impression
54yo M presented with SOB, myalgias, arthralgias and found to have a acute hypoxic respiratory failure, RLL necrotizing pneumonia
acute Anemia s/p 1U prbc 02/19/2025
heme positive/dark stool
right flank pain
Plan
Plan
sepsis/PNA/abx per primary service/pulmonary/ID
GI evaluation for heme pos stool c/f ABLA/GIB, on PPI
check iron studies, b12, folate
transfusion reactions unlikely with normal dbili and LDH. He has no evidence of post transfusion purpura. follow up blood bank regarding transfusion reaction protocol results which are still pending
We will continue to follow along
Subjective/Objective
Subjective
Tmax 102.2F
SOB
10L NC
Hgb 7.7g/dL
Vital Signs:
Vital Signs
Temp Pulse Resp BP Pulse Ox
98.8 F 106 30 138/78 91
02/21/25 03:48 02/21/25 06:55 02/21/25 06:55 02/21/25 07:59 02/21/25 06:55
Lab Results:
Laboratory Data
WBC 15.8 10^3/uL (4.8-10.8) H 02/21/25 05:17
Hgb 7.7 g/dL (13.0-18.0) L 02/21/25 05:17
Plt Count 379 10^3/uL (130-400) 02/21/25 05:17
eGFR > 60.00 02/21/25 05:17
Physical Exam
General: Well Developed, Well Nourished and No Apparent Distress
HEENT: Moist Mucous Membranes; Negative Jaundice
Cardiology: Normal Sinus Rhythm
Pulmonary: diminished, right chest tube
GI: Soft
Extremities: Pulses Present; Negative Edema
Neurology: Non Focal
Skin: Warm
Psych: Calm
Orders
Orders
Orders From Last 24 Hours
02/20/25 12:43
Transfusion Reaction Stat
[2025-02-21 09:01] LABS: Reticulocyte Count 1.9 % (0.4-2.8)
--- NOTE | 2025-02-21 09:04 | PHA.VAN.FU ---
Vancomycin Assessment / Plan
- Assessment
Renal Function: Stable
WBC's are: Trending Down (18.3->15.8)
In the past 24 hrs, patient has been: Febrile (102.2)
Concomitant Antimicrobials: piperacillin/tazobactam
- Dosing Plan
Continue: 1250mg q8h
- Monitoring Plan
Peak Level: 6/7 @ 01:30
Trough Level: 6/7 @ 05:30
- Follow Up
Pharmacy will continue to follow.
Vancomycin Follow UP
- -
Patient Age: 54
Patient Sex: Male
Vancomycin Day #: 3
Indication: Pulmonary/Respiratory
Requesting Provider: IGGY PATEL
Pertinent Antimicrobial Allergies:
AMOXICILLIN/CLAVULANIC ACID (RASH)
Height / Weight:
Height 6 ft
Actual Weight 102.058 kg
- Vital Signs / Lab Results
Temp Pulse Resp BP Pulse Ox
98.4 F 106 30 138/78 91
02/21/25 07:15 02/21/25 06:55 02/21/25 06:55 02/21/25 07:59 02/21/25 06:55
Lab Results - Hematology
02/19/25 02/20/25 02/20/25
11:23 05:41 11:27
WBC 17.5 H 19.4 H 18.3 H
02/21/25
05:17
WBC 15.8 H
Lab Results - Chemistry
02/19/25 02/20/25 02/20/25
11:23 05:41 11:27
BUN 14 7 L 7 L
Creatinine 0.7 0.6 L 0.6 L
Estimated Creat Clear > 125 > 125 > 125
Albumin 3.4 L 2.9 L
02/21/25
05:17
BUN 7 L
Creatinine 0.5 L
Estimated Creat Clear > 125
Albumin
02/19/25
11:23
Lactic Acid 1.3
Microbiology Results
02/20/25 17:30 Fungal Culture - Preliminary
Pleural Fluid Culture in progress.
Positive cultures are reported as soon as detected.
Final report to follow in four to five weeks.
02/19/25 11:51 Blood Culture - Preliminary
Blood/Venous No Growth in 24 hours- Final report to follow
02/19/25 11:52 Blood Culture - Preliminary
Blood/Venous No Growth in 24 hours- Final report to follow
02/20/25 07:41 Nasal Screen MRSA (PCR) - Final
Nose MRSA not detected - performed by PCR methodology.
02/19/25 11:23 Influenza Types A & B (CJ) - Final
Nasal Swab Negative for Influenza A & B, NAAT
Negative results must be combined with clinical observations
and patient history.
Nucleic Acid Amplification test (NAAT)performed on the
[employer] platform.
[2025-02-21 09:45] LABS: Total Iron Binding Capacity 211 ug/dl (261-462)
--- NOTE | 2025-02-21 10:00 | PTCARENOTE ---
Assumed care of patient at beginning of this shift from previous RN. CT to -20cm suction; draining light yellow. Patient stated he feels much better this morning. Reviewed with Dr Daniel that patient remains on protonix drip and clear liquid
diet. Protonix changed to IV push bid; clear liquid diet remains. POx 95% on 8L midflow; weaned to 6L with current POx 95%.
[2025-02-21 10:09] LABS: Iron < 20 ug/dl (49-181)
--- NOTE | 2025-02-21 10:20 | W.PN.PUL3 ---
Today's Communication / Plan
-
Continue antibiotic
Discontinue vancomycin
Follow cultures
Incentive spirometry
Decrease FiO2 as able
Daily chest x-ray-if there is persistent rounded abnormality on the right chest tomorrow-will need to discuss with interventional radiology either obtain an ultrasound, instilling thrombolytic/dornase alpha versus additional small bore chest tube.
Clinically today he is improving.
Follow chest tube output
Assessment
-
54-year-old man with past medical history noted. Admitted with 2-3 day history of shortness of breath, pleuritic type chest pain, fevers.. Generalized malaise. Black stools. Found to have right lower lobe pneumonia possibly necrotizing with
associated pleural effusion
Severe pneumonia with right complicated parapneumonic effusion
S/p thoracentesis 02/20/2025: Negative Gram stain-exudative.
Acute respiratory failure secondary to pneumonia-[address] chest: Showed right lower lobe possible necrotizing pneumonia with associated pleural effusion.
Sepsis due to above: Leukocytosis/fever/tachypnea.
Pleuritic type chest pain
Acute blood loss anemia-reports black stools.
-
Hypokalemia
Hyponatremia
Conditions present prior admission:
Alcohol abuse
Anxiety
Hypertension
GERD
Assessment and plan:
Clinical picture consistent with bacterial pneumonia/So far no evidence for pulmonary abscess: Possibly complicated aspiration pneumonia.
CT of the chest: Showed significant right lower lobe infiltrate with possible necrosis. Associated moderate pleural effusion. Borderline mediastinal adenopathy.
-
Severe pneumonia with complicated parapneumonic effusion.
Improved fever curve and leukocytosis.
Remained hemodynamically stable overnight.
Continue Zosyn-Case discussed with infectious disease.
Gram stain from pleural fluid negative. Discontinue vancomycin.
Wait for final culture.
Sputum culture if able-has not been able to produce.
MRSA screening negative
Blood culture negative to date so far
Influenza negative
COVID-negative
Legionella and strep urine a antigens pending
-
Hypoxemic respiratory failure: Improving.
Currently on 12 L of supplemental oxygen.
Maintain pulse ox above 90%.
-
Status post right chest tube placement 02/20/2025 total output 1330 cc
Pleural fluid exudative, pH 7.29/white blood cell 3041/88% polymorphs/glucose 69/total protein 3.6/LDH 1219.
Negative amylase and triglycerides.
Follow final cultures chest x-ray post
Follow cytology
Chest x-ray postthoracentesis showing improvement: 02/21/2025- There is a rounded density projecting over the lateral aspect of the right mid to lower hemithorax, which is likely rounded fluid within a pleural fissure, stable. Patchy parenchymal
opacity within the right mid to lower lung, compatible with pneumonia and/or atelectasis. There is also confluent parenchymal opacity in the medial right lower lung, again with main differential considerations of atelectasis and/or pneumonia.
-
Continue daily chest x-ray-
If there is decreased on chest tube output and there is persistent rounded abnormality on the right hemithorax-ultrasound of the chest may be helpful to determine whether this is loculated fluid versus parenchymal lung abnormality.
If there is persistent loculated effusion then either a new chest tube or thrombolytics/dornase alpha should be considered.
-
Former smoker without evidence of COPD.
Secretion clearance interventions
DuoNebs as needed
Acapella device
-
Per patient he has not drank alcohol in a year.
-
Anemia: Blood loss. Status post transfusion
Reported black stools prior to admission
Monitor for bleeding
Hemoglobin responded appropriately
GI following-eventual EGD and colonoscopy
Transfuse as necessary.
-
Chest pain: Likely pleuritic-improved postthoracentesis per
Echocardiogram showed normal LVEF. Mild . No RV dysfunction or regional motion wall abnormalities
Analgesia per primary team.
-
Hypokalemia being repleted- Improved. Defer to primary team.
Hyponatremia likely due to severe pneumonia- Improving.
-
Will follow
-
Dr. Coles updated sister and parents at the bedside 02/20/2025 3:30 PM. Images of the chest were reviewed.
-
Pulmonary will follow.
Subjective Data
-
Date of Service:
Date of Service: February 21, 2025
Chief Complaint: Pulmonary Follow Up (Severe pneumonia with complicated parapneumonic effusion)
Subjective:
Chest pain improved
Shortness of breath improved
Denies increased phlegm production or hemoptysis
Review of Systems
Cardiopulmonary: Dyspnea on Exertion, Cough and Chest Pain (Improved)
Objective Data
Data Reviewed
Vital Signs / I&O / Oxygen:
Vital Signs
Temp Pulse Resp BP Pulse Ox
98.4 F 104 24 113/73 95
02/21/25 07:15 02/21/25 10:00 02/21/25 10:00 02/21/25 10:00 02/21/25 10:00
Intake and Output
02/20/25 02/21/25 02/22/25
06:59 06:59 06:59
Intake Total 1930 / 1930 1555 / 1555
Output Total 800 / 800 3500 / 3500 130 / 130
Balance 1130 / 1130 -1945 / -1945 -130 / -130
SaO2 95
Nasal Cannula flow liters per 10
minute
Physical Exam
General: Comfortable
HEENT: Normocephalic
Cardiovascular: S1-S2
Respiratory: Clear and Non-Labored Respirations
GI: Soft and Distended (Obese)
Neurology: Awake, Alert, Oriented and No Motor Deficits
Skin: Warm
Labs/Micro/Reports
Lab Data
02/21/25 05:17
02/21/25 05:17
Microbiology
02/20/25 17:30 Pleural Fluid Gram Stain - Preliminary
02/20/25 17:30 Pleural Fluid Fungal Culture - Preliminary
Culture in progress.
Positive cultures are reported as soon as detected.
Final report to follow in four to five weeks.
02/19/25 11:51 Blood/Venous Blood Culture - Preliminary
No Growth in 24 hours- Final report to follow
02/19/25 11:52 Blood/Venous Blood Culture - Preliminary
No Growth in 24 hours- Final report to follow
02/20/25 07:41 Nose Nasal Screen MRSA (PCR) - Final
MRSA not detected - performed by PCR methodology.
02/19/25 11:23 Nasal Swab Influenza Types A & B (CJ) - Final
Negative for Influenza A & B, NAAT
Negative results must be combined with clinical observations
and patient history.
Nucleic Acid Amplification test (NAAT)performed on the
[employer] platform.
[2025-02-21] MEDS: TYLENOL 650 MG PO ×2 (13:13→20:23)
--- NOTE | 2025-02-21 13:56 | W.PN.ID1 ---
Date of Service
Date of Service: February 21, 2025
Today's Communication
Continue Zosyn.
Assessment / Plan
Right-sided pneumonia with concern for possible parenchymal necrosis/abscess
Leukocytosis
Fever
Anxiety/depression
Hypertension
Alcohol abuse
Recommendations:
Chest tube has been placed. Pain
Continue with empiric Zosyn. Vancomycin has been discontinued as MRSA screen negative.
Await sputum culture.
Follow white count and temperature curve.
����������������������������������������������������������
Chief Complaint
-: Pneumonia
Subjective / Review of Systems
Patient seen and examined. Chest tube placed yesterday. Patient reports today feeling somewhat improved. Notes some ongoing fevers. Reports breathing is more comfortable.
Vital Signs / Physical Exam
Vital Signs
Vital Signs
Temp Pulse Resp BP Pulse Ox
98.4 F 104 24 113/73 95
02/21/25 07:15 02/21/25 10:00 02/21/25 10:00 02/21/25 10:00 02/21/25 10:00
Physical Exam
Constitutional: No Acute Distress, Comfortable and Non-toxic
Eyes: Sclera Anicteric
Cardiovascular: S1/S2; Negative S3/S4
Pulmonary: Non Labored and Other (Right chest tube in place with serous drainage)
Gastrointestinal: Soft, Non Tender and Non Distended
Skin: Warm and Dry; Negative Rash or Jaundice
Neurological: Awake and Alert
Psychological: Calm
Objective Data
Lab Data
Lab Results
02/21/25 05:17
02/21/25 05:17
Estimated Creat Clear > 125 ml/min 02/21/25 05:17
Lactic Acid 1.3 mmol/L (0.7-2.0) 02/19/25 11:23
Total Bilirubin 0.4 mg/dl (0.2-1.3) 02/20/25 11:27
AST 12 U/L (17-59) L 02/20/25 11:27
ALT 13 U/L (0-50) 02/20/25 11:27
Alkaline Phosphatase 81 U/L (38-126) 02/20/25 11:27
Most recent labs reviewed.
Micro Results:
02/21/25 13:37 Respiratory Culture - Pending
Sputum Gram Stain - Pending
02/19/25 11:51 Blood Culture - Preliminary
Blood/Venous No Growth in 48 hours- Final report to follow
02/19/25 11:52 Blood Culture - Preliminary
Blood/Venous No Growth in 48 hours- Final report to follow
02/20/25 17:30 Body Fluid Culture - Pending
Pleural Fluid Gram Stain - Preliminary
02/20/25 17:30 Fungal Smear - Pending
Pleural Fluid Fungal Culture - Preliminary
Culture in progress.
Positive cultures are reported as soon as detected.
Final report to follow in four to five weeks.
02/20/25 07:41 Nasal Screen MRSA (PCR) - Final
Nose MRSA not detected - performed by PCR methodology.
02/19/25 11:23 Influenza Types A & B (CJ) - Final
Nasal Swab Negative for Influenza A & B, NAAT
Negative results must be combined with clinical observations
and patient history.
Nucleic Acid Amplification test (NAAT)performed on the
[employer] platform.
Imaging:
02/19/2025 CT chest/abdomen/pelvis: Moderate right pleural effusion. Hypodense pulmonary consolidation/pneumonia in the posterior right lower lobe. Concern for the possibility of parenchymal necrosis is noted. Borderline mediastinal adenopathy.
Mild hepatomegaly. Mild fatty infiltration. Mild diverticulosis without evidence for diverticulitis. Please see full dictation for additional detail.
--- NOTE | 2025-02-21 14:15 | PTCARENOTE ---
Patient set off bed alarm; stated he was trying to sit on the side of the bed to use the urinal. He sat on the opposite side of his chest tube. POx dropped to 85%; patient very SAM with audible wheezing. Also c/o CP. HR 130s. Temp 101 oral. EKG done
per protocol. No tidaling or crepitus noted with chest tube. Patient recovered with POx 91% on 4L, HR 118, stated chest pain was gone and T 99.8 without tylenol. TT sent to both Dr Coles and Dr Daniel. PCXR done per Dr Daniel's order; see
[facility] for results.
[2025-02-21] MEDS: KLOR-CON 40 MEQ PO (14:51)
[2025-02-21 17:32] LABS: Ferritin 85.1 ng/ml (17.9-464.0)
[2025-02-21 18:03] LABS: Vitamin B12 277 pg/ml (239-931)
[2025-02-21] MEDS: NSS (PRESERVATIVE FREE) 10 ML IV (20:20)
[2025-02-21] MEDS: PROTONIX IV 40 MG IV (20:20)
[2025-02-21] MEDS: MELATONIN 10 MG PO (20:21)
--- NOTE | 2025-02-21 20:40 | PTCARENOTE ---
report received from adrienne STEVEN. R chest tube present, set to -20 cm suction, dressing clean dry and intact, draining light yellow drainage. Pt is on 4L 02, satting 96%. Pt with temp of 101.2, Pt given Po tylenol for temp per order, see MAR.
Assessment as documented. Call light in reach.
[2025-02-21 22:55] LABS: Blood Urea Nitrogen 6 mg/dl (9-20); Calcium 7.5 mg/dl (8.4-10.2); Carbon Dioxide 22 mmol/L (22-30); Chloride 108 mmol/L (98-107); Estimated Creatinine Clearance > 125 ml/min; Glucose 112 mg/dl (70-99); Potassium 3.4 mmol/L (3.5-5.1); Sodium 134 mmol/L (135-145); eGFR > 60.00
[2025-02-22] VITALS (11 sets, daily range): BP systolic 112–137; BP diastolic 72–89
[2025-02-22] MEDS: KCL 40 MEQ PO (00:48)
[2025-02-22] MEDS: ZOSYN 50 IV ×4 (00:48→17:35)
[2025-02-22] MEDS: DILAUDID 1 MG IV ×4 (03:00→19:53)
[2025-02-22 05:10] LABS: Hematocrit 21.4 % (39.0-52.0); Hemoglobin 7.1 g/dL (13.0-18.0); Mean Corp Hgb Conc. 33.2 g/dL (33.0-37.0); Mean Corpuscular Hgb 25.1 pg (27.0-31.0); Mean Corpuscular Volume 75.6 fL (80.0-94.0); Mean Platelet Volume 9.6 fL (7.4-10.4); Platelet Count 401 10^3/uL (130-400); Red Blood Cell Count 2.83 10^6/uL (4.70-6.10); Red Cell Dist. Width 16.3 % (11.5-14.5); White Blood Cell Count 13.6 10^3/uL (4.8-10.8)
[2025-02-22 05:35] LABS: Albumin 2.6 g/dl (3.5-5.0); Blood Urea Nitrogen 6 mg/dl (9-20); Calcium 7.3 mg/dl (8.4-10.2); Carbon Dioxide 22 mmol/L (22-30); Chloride 110 mmol/L (98-107); Estimated Creatinine Clearance > 125 ml/min; Glucose 117 mg/dl (70-99); Potassium 3.7 mmol/L (3.5-5.1); Sodium 136 mmol/L (135-145); eGFR > 60.00
--- NOTE | 2025-02-22 08:27 | W.PN.UPDATE ---
Update Note
Progress Note Update
labs w/o hemoytic transfusion reaction-- serum folate low-- B1`2 in lowest quartile--ordered MMA-- started folic acid
[2025-02-22 08:29] LABS: Hematocrit 22.7 % (39.0-52.0); Hemoglobin 7.3 g/dL (13.0-18.0)
[2025-02-22] MEDS: PROTONIX IV 40 MG IV ×2 (09:29→19:52)
[2025-02-22] MEDS: FOLVITE 1 MG PO (09:30)
[2025-02-22] MEDS: SINEQUAN PO ×2 (09:30→09:36)
[2025-02-22] MEDS: LEXAPRO 20 MG PO (09:30)
[2025-02-22] MEDS: WELLBUTRIN XL (24 hour extended release) 300 MG PO (09:30)
[2025-02-22] MEDS: NSS (PRESERVATIVE FREE) 10 ML IV ×2 (09:30→19:52)
[2025-02-22] MEDS: NORVASC 10 MG PO (09:30)
--- NOTE | 2025-02-22 10:38 | W.PN.ID1 ---
Date of Service
Date of Service: February 22, 2025
Today's Communication
Continue antibiotics.
Assessment / Plan
Right-sided pneumonia with concern for possible parenchymal necrosis/abscess
Leukocytosis
Fever
Anxiety/depression
Hypertension
Alcohol abuse
Recommendations:
Leukocytosis trending down.
Continue with empiric Zosyn.
Monitor chest tube output.
Follow pending cultures.
Attempt repeat sputum culture
Follow white count and temperature curve.
����������������������������������������������������������
Chief Complaint
-: Pneumonia
Subjective / Review of Systems
Review of Systems: No Fever, No Chills, Cough, Sputum Production, Chest Pain (Occasional; pleuritic) and No Vomiting
Vital Signs / Physical Exam
Vital Signs
Vital Signs
Temp Pulse Resp BP Pulse Ox
98.3 F 99 21 126/72 94
02/22/25 08:32 02/22/25 09:30 02/22/25 06:00 02/22/25 09:30 02/22/25 08:32
Physical Exam
Constitutional: No Acute Distress, Comfortable and Non-toxic
Eyes: Sclera Anicteric
Cardiovascular: S1/S2; Negative S3/S4
Pulmonary: Non Labored and Other (Right chest tube in place with serous drainage)
Gastrointestinal: Soft, Non Tender and Non Distended
Skin: Warm and Dry; Negative Rash or Jaundice
Neurological: Awake and Alert
Psychological: Calm
Objective Data
Lab Data
Lab Results
02/22/25 08:17
02/22/25 04:59
Estimated Creat Clear > 125 ml/min 02/22/25 04:59
Lactic Acid 1.3 mmol/L (0.7-2.0) 02/19/25 11:23
Total Bilirubin 0.4 mg/dl (0.2-1.3) 02/20/25 11:27
AST 12 U/L (17-59) L 02/20/25 11:27
ALT 13 U/L (0-50) 02/20/25 11:27
Alkaline Phosphatase 81 U/L (38-126) 02/20/25 11:27
Most recent labs reviewed.
Micro Results:
02/21/25 13:37 Respiratory Culture - Preliminary
Sputum Gram Stain - poor quality specimen
02/20/25 17:30 Body Fluid Culture - Preliminary
Pleural Fluid No Growth After 18-24 Hours
Gram Stain - Preliminary
02/19/25 11:51 Blood Culture - Preliminary
Blood/Venous No Growth in 48 hours- Final report to follow
02/19/25 11:52 Blood Culture - Preliminary
Blood/Venous No Growth in 48 hours- Final report to follow
02/20/25 17:30 Fungal Smear - Pending
Pleural Fluid Fungal Culture - Preliminary
Culture in progress.
Positive cultures are reported as soon as detected.
Final report to follow in four to five weeks.
02/20/25 07:41 Nasal Screen MRSA (PCR) - Final
Nose MRSA not detected - performed by PCR methodology.
02/19/25 11:23 Influenza Types A & B (CJ) - Final
Nasal Swab Negative for Influenza A & B, NAAT
Negative results must be combined with clinical observations
and patient history.
Nucleic Acid Amplification test (NAAT)performed on the
[employer] platform.
Imaging:
02/19/2025 CT chest/abdomen/pelvis: Moderate right pleural effusion. Hypodense pulmonary consolidation/pneumonia in the posterior right lower lobe. Concern for the possibility of parenchymal necrosis is noted. Borderline mediastinal adenopathy.
Mild hepatomegaly. Mild fatty infiltration. Mild diverticulosis without evidence for diverticulitis. Please see full dictation for additional detail.
--- NOTE | 2025-02-22 11:13 | W.PN.HOSP.TC ---
Today's Communication/Plan
-
Start intrapleural tPA/DNase x 3 doses
Appreciate ENT assistance given patient's recurrent nosebleeds
Assessment / Plan
Assessment / Plan
Physical Exam
General: Not in acute distress
HEENT: Normocephalic, Moist mucous membranes
Respiratory: Decreased breath sounds on the right side
Cardiac: S1/S2 and Regular Rhythm
GI: Soft, Non Tender, Non Distended and Normal Bowel Sounds
Musculoskeletal: No Cyanosis and No Edema
Skin: Warm. Dry.
Neuro: AAO x 3 and Nonfocal/grossly intact
Psych: Calm
Assessment/Plan
54yo M came with SOB and pleuritic chest pain, CT showed concern for RLL necrotizing pneumonia and labs with new anemia with FOBT+ stool
#acute hypoxic respiratory failure secondary to necrotizing pneumonia
#RLL necrotizing pneumonia with complicated parapneumonic effusion
#Moderate Right Pleural Effusion
#Sepsis Secondary to Pneumonia
-Chest Tube placed on 02/21/25
-Follow pleural fluid studies
-Continue Zosyn. Vancomycin stopped since MRSA negative.
-Pulm consult
-ID consult
-Sputum Cx
-Blood cultures with no growth to date
-Continue supplemental oxygen to maintain SpO2>90% - currently on 7 L of supplemental oxygen
-Given worsening hypoxia, in the setting of patient's necrotizing pneumonia, patient transferred to IMU on 02/20/25
-IR consult for pleural drainage --> chest tube placed on 02/21/25 -- since minimal pleural fluid drainage over last 24 hours, and loculated collection persists on the chest x-ray, start intrapleural tPA/DNase x 3 doses
-CT Chest after 3 doses of tPA DNase -- and if loculated effusions persist, patient might need revision of chest tube versus placement of a second chest tube.
#Chest Pain/Flank Pain with reports of pallor and diaphoresis in setting of worsening hypoxia
-Could simply be from patient's necrotizing pneumonia
-Consulted cardiology given chest pain and EKG changes: no concerns for ACS
-Echo with LVEF 65 to 70% and mild aortic stenosis
-Given flank pain and pallor, along with hypoxia and SOB, concern for reaction following PRBC transfusion on 02/20/25, ordered hemolysis labs and consulted hematology. Based on labs hematolytic reaction unlikely. Low suspicion for TACO or TRALI.
-Transferred to IMU
-Appreciate hematology -- no concern for hemolytic reaction
#Microcytic Anemia
#Recent history of melena and OB positive with brown stool in the ER
#Nose bleeds for the last few weeks (as of 02/22/25)
follow CBC, transfuse to keep hgb>7 -- per my phone discussion on 02/22/[address] Pineda, can given standard leukoreduced PRBCs if needed
Received 1 unit PRBC on 02/20/25
GI consult: endoscopy and colonoscopy when respiratory status is improved, can be done as outpatient since he currently has no active bleeding but sooner as inpatient if he has active bleeding
Continue Protonix 40 mg BID
Patient reported that he has been having nose bleeds from the right nostril for the last few weeks, consulted ENT as he is still having nosebleed
Oxymetazoline 1 spray on 02/22/25
Avoid IV iron given infection above
Serum folate low-- B12 in lowest quartile--MMA level ordered--Folic acid started
#Constipation on CT Imaging
#Mild Diverticulosis
#Mobile intraperitoneal cecum situated in the left upper quadrant
#Reactive thrombocytosis
follow
#hypokalemia
Replacements ordered
Magnesium normal
#Hyponatremia
# Anxiety
-Bupropion, doxepin, escitalopram continued
#Essential Hypertension
- continue Norvasc
#GERD - PPI
#Alcohol Abuse
DVT Prophylaxis: SCDs. Lovenox.
Code Status: Full Code
Anticipated Discharge: > 48 hours
Subjective/Interval History
-
Date of Service: February 22, 2025
Patient was seen and examined. He reported pain from the chest tube site and same shortness of breath, no new symptoms or complaints.
Objective Data
-
Labs:
Laboratory Results
02/22/25 02/22/25
04:59 08:17
WBC 13.6 H
Hgb 7.1 L 7.3 L
Hct 21.4 L 22.7 L
Plt Count 401 H
Sodium 136
Potassium 3.7
Chloride 110 H
Carbon Dioxide 22
BUN 6 L
Creatinine 0.5 L
Glucose 117 H
Calcium 7.3 L
Vital Signs:
Vital Signs
Temp Pulse Resp BP Pulse Ox
98.3 F 99 21 126/72 94
02/22/25 08:32 02/22/25 09:30 02/22/25 06:00 02/22/25 09:30 02/22/25 08:32
I&O
02/21/25 02/22/25 02/23/25
06:59 06:59 06:59
Intake Total 1555 / 1555 960 / 960
Output Total 3500 / 3500 2795 / 2795
Balance -1945 / -1945 -1835 / -1835
--- NOTE | 2025-02-22 12:45 | PTCARENOTE ---
Patient AAOx3, fidgety. Chest tube CDI. 4L NC, sats 93%. Patient had a nose bleed and stated that he has been having , ENT at bedside and cauterized the bleed. Patient tolerated well. NSR on monitor. VSS. Patient c/o some SAM, though improved, and
dizziness on exertion. Will closely monitor.
[2025-02-22] MEDS: OCEAN, SALINE MIST NASAL (13:34)
--- NOTE | 2025-02-22 15:11 | W.PN.PUL3 ---
Today's Communication / Plan
-
- Start intrapleural tPA/DNase, 3 doses
- Follow-up CT chest after tPA DNase x 3, if loculations persist might need revision of chest tube versus placement of a second chest tube
-Continue antibiotic, follow-up on cultures
Assessment
-
54-year-old man with past medical history noted. Admitted with 2-3 day history of shortness of breath, pleuritic type chest pain, fevers.. Generalized malaise. Black stools. Found to have right lower lobe pneumonia possibly necrotizing with
associated pleural effusion
Severe pneumonia with right complicated parapneumonic effusion
S/p thoracentesis 02/20/2025: Negative Gram stain-exudative.
Acute respiratory failure secondary to pneumonia-[address] chest: Showed right lower lobe possible necrotizing pneumonia with associated pleural effusion.
Sepsis due to above: Leukocytosis/fever/tachypnea.
Pleuritic type chest pain
Acute blood loss anemia-reports black stools.
-
Hypokalemia
Hyponatremia
Conditions present prior admission:
Alcohol abuse
Anxiety
Hypertension
GERD
Assessment and plan:
Clinical picture consistent with bacterial pneumonia/So far no evidence for pulmonary abscess: Possibly complicated aspiration pneumonia.
CT of the chest: Showed significant right lower lobe infiltrate with possible necrosis. Associated moderate pleural effusion. Borderline mediastinal adenopathy.
#1. Severe Pneumonia with complicated parapneumonic effusion versus empyema
-Pleural fluid studies show significantly elevated LDH
-Minimal pleural fluid drainage over last 24 hours, loculated collection persists on the chest x-ray
-Discussed with IR service, start intrapleural tPA/DNase x 3 doses
-Will pursue CT chest after 3 doses of tPA DNase. If loculated effusions persist, patient might need revision of chest tube versus placement of a second chest tube.
-Continue broad-spectrum antibiotic per ID service
-O2 support as needed
-Sputum culture if able-has not been able to produce.
-MRSA screening negative
-Blood culture negative to date so far
-Influenza negative
-COVID-negative
Hypoxemic respiratory failure: Improving.
Currently on 12 L of supplemental oxygen.
Maintain pulse ox above 90%.
-
Status post right chest tube placement 02/20/2025 total output 1330 cc
Pleural fluid exudative, pH 7.29/white blood cell 3041/88% polymorphs/glucose 69/total protein 3.6/LDH 1219.
Negative amylase and triglycerides.
Follow final cultures chest x-ray post
Follow cytology
Chest x-ray post-thoracentesis showing improvement: 02/21/2025- There is a rounded density projecting over the lateral aspect of the right mid to lower hemithorax, which is likely rounded fluid within a pleural fissure, stable. Patchy parenchymal
opacity within the right mid to lower lung, compatible with pneumonia and/or atelectasis. There is also confluent parenchymal opacity in the medial right lower lung, again with main differential considerations of atelectasis and/or pneumonia.
-
Former smoker without evidence of COPD.
Secretion clearance interventions
DuoNebs as needed
Acapella device
-
Per patient he has not drank alcohol in a year.
Chest pain: Likely pleuritic-improved postthoracentesis per
Echocardiogram showed normal LVEF. Mild . No RV dysfunction or regional motion wall abnormalities
Analgesia per primary team.
-
Hypokalemia being repleted- Improved. Defer to primary team.
Hyponatremia likely due to severe pneumonia- Improving.
-
Will follow
-
Subjective Data
-
Date of Service:
Date of Service: February 22, 2025
Chief Complaint: Pulmonary Follow Up (Severe pneumonia with complicated parapneumonic effusion)
Subjective:
Patient comfortably sitting in bed in no acute distress.
Review of Systems
Genitourinary: Other (All 14 systems reviewed and negative except as stated above in the history of present illness.)
Objective Data
Data Reviewed
Vital Signs / I&O / Oxygen:
Vital Signs
Temp Pulse Resp BP Pulse Ox
97.8 F 101 26 131/81 92
02/22/25 12:54 02/22/25 14:00 02/22/25 14:00 02/22/25 14:00 02/22/25 14:00
Intake and Output
02/21/25 02/22/25 02/23/25
06:59 06:59 06:59
Intake Total 1555 / 1555 960 / 960
Output Total 3500 / 3500 2795 / 2795 800 / 800
Balance -1945 / -1945 -1835 / -1835 -800 / -800
SaO2 92
Nasal Cannula flow liters per 7
minute
Physical Exam
General: Comfortable
HEENT: Normocephalic
Cardiovascular: S1-S2
Respiratory: Clear and Non-Labored Respirations
GI: Soft
Neurology: Awake, Alert and Oriented
Skin: Warm
Labs/Micro/Reports
Lab Data
02/22/25 08:17
02/22/25 04:59
Microbiology
02/19/25 11:51 Blood/Venous Blood Culture - Preliminary
No Growth in 72 hours- Final report to follow
02/19/25 11:52 Blood/Venous Blood Culture - Preliminary
No Growth in 72 hours- Final report to follow
02/21/25 13:37 Sputum Respiratory Culture - Preliminary
02/21/25 13:37 Sputum Gram Stain - Preliminary
02/20/25 17:30 Pleural Fluid Body Fluid Culture - Preliminary
No Growth After 18-24 Hours
02/20/25 17:30 Pleural Fluid Gram Stain - Preliminary
02/20/25 17:30 Pleural Fluid Fungal Culture - Preliminary
Culture in progress.
Positive cultures are reported as soon as detected.
Final report to follow in four to five weeks.
02/20/25 07:41 Nose Nasal Screen MRSA (PCR) - Final
MRSA not detected - performed by PCR methodology.
02/19/25 11:23 Nasal Swab Influenza Types A & B (CJ) - Final
Negative for Influenza A & B, NAAT
Negative results must be combined with clinical observations
and patient history.
Nucleic Acid Amplification test (NAAT)performed on the
[employer] platform.
[2025-02-22] MEDS: LOVENOX 40 MG SC (17:34)
[2025-02-22] MEDS: OCEAN, SALINE MIST 2 SPRAYS NASAL ×2 (17:35→19:52)
[2025-02-22] MEDS: TYLENOL 650 MG PO (17:35)
[2025-02-22] MEDS: SINEQUAN 100 MG PO (19:54)
[2025-02-23] VITALS (43 sets, daily range): BP systolic 65–132; BP diastolic 34–96
[2025-02-23] MEDS: ZOSYN 50 IV ×4 (00:18→17:28)
[2025-02-23] MEDS: COLACE 100 MG PO ×3 (00:18→21:15)
[2025-02-23] MEDS: SENOKOT 8.6 MG PO ×3 (00:18→21:15)
--- NOTE | 2025-02-23 00:52 | PTCARENOTE ---
Pt last bm 02/18. Hypoactive bowel sounds, poor appetite. No c/o nausea or abdominal pain. Round, non tender abdomen. +flatus. CT chest/abdomen/pelvis from 02/19 showed constipation/moderate fecal burden. TECHNICAL SOLUTIONS CONSULTANT notified via tiger text. Bowel regimen added.
Colace and senokot given. VSS. Pt resting comfortably in bed at this time. Care ongoing.
[2025-02-23] MEDS: DILAUDID 1 MG IV ×4 (04:31→23:01)
[2025-02-23 05:08] LABS: % Basophils 0.4 % (0-2); % Eosinophils 3.1 % (0-6); % Immature Granulocytes 0.9 % (0-0.5); % Lymphocytes 5.9 % (20.5-51.1); % Monocytes 7.5 % (1.7-9.3); % Neutrophils 82.2 % (42.2-75.2); Absolute Basophils 0.1 10^3/uL (0-0.2); Absolute Eosinophils 0.4 10^3/uL (0-0.7); Absolute Immature Granulocytes 0.1 10^3/uL (0-0.05); Absolute Lymphocytes 0.7 10^3/uL (1.2-3.4); Absolute Monocytes 0.9 10^3/uL (0.1-0.6); Absolute Neutrophils 9.4 10^3/uL (1.4-6.5); Mean Corpuscular Volume 75.7 fL (80.0-94.0); Mean Platelet Volume 9.7 fL (7.4-10.4); Nucleated Red Blood Cells % 0 % (-); Platelet Count 397 10^3/uL (130-400); Red Blood Cell Count 2.72 10^6/uL (4.70-6.10); Red Cell Dist. Width 16.4 % (11.5-14.5); White Blood Cell Count 11.4 10^3/uL (4.8-10.8)
[2025-02-23 05:13] LABS: Hemoglobin 6.8 g/dL (13.0-18.0)
[2025-02-23 05:14] LABS: Hematocrit 20.6 % (39.0-52.0)
[2025-02-23 05:28] LABS: Blood Urea Nitrogen 8 mg/dl (9-20); Calcium 7.6 mg/dl (8.4-10.2); Carbon Dioxide 24 mmol/L (22-30); Chloride 108 mmol/L (98-107); Estimated Creatinine Clearance > 125 ml/min; Glucose 99 mg/dl (70-99); Magnesium 2.1 mg/dl (1.6-2.3); Potassium 3.7 mmol/L (3.5-5.1); Sodium 136 mmol/L (135-145); eGFR > 60.00
--- NOTE | 2025-02-23 05:37 | W.PN.UPDATE ---
Update Note
Progress Note Update
AM labs, critical value: Hgb 6.8. Consent scanned in chart, Ordered repeat type and screen and 1 unit PRBC's. Repeat H&H ordered to be completed 2 hours after PRBC transfusion completed.
--- NOTE | 2025-02-23 05:40 | PTCARENOTE ---
am hgb 6.8, SHOT GRINDER OPERATOR notified via tigertext, orders for type&screen and 1unit PRBC
--- NOTE | 2025-02-23 07:58 | W.PN.HOSP.TC ---
Addendum entered and electronically signed by Leobardo Daniel MD 02/23/25 18:05:
I just called the patient's sister Megan Barnes, and updated her on patient's current medical management. I answered all of her questions and concerns to satisfaction.
Original Note:
Today's Communication/Plan
-
Continue antibiotics
Intrapleural tPA/DNAse
Continue pulmonary toilet
1 unit PRBC transfusion today -- suspected from recurrent epistaxis -- cauterized by ENT yesterday
Assessment / Plan
Assessment / Plan
Physical Exam
General: Not in acute distress
HEENT: Normocephalic, Moist mucous membranes
Respiratory: Decreased breath sounds on the right side
Cardiac: S1/S2 and Regular Rhythm
GI: Soft, Non Tender, Non Distended and Normal Bowel Sounds
Musculoskeletal: No Cyanosis and No Edema
Skin: Warm. Dry.
Neuro: AAO x 3 and Nonfocal/grossly intact
Psych: Calm
Assessment/Plan
54yo M came with SOB and pleuritic chest pain, CT showed concern for RLL necrotizing pneumonia and labs with new anemia with FOBT+ stool
#acute hypoxic respiratory failure secondary to necrotizing pneumonia
#RLL necrotizing pneumonia with complicated parapneumonic effusion
#Moderate Right Pleural Effusion
#Sepsis Secondary to Pneumonia
-Given worsening hypoxia, in the setting of patient's necrotizing pneumonia, patient transferred to IMU on 02/20/25
-Chest Tube placed on 02/21/25
-Follow pleural fluid studies
-Continue Zosyn. Vancomycin recently stopped since MRSA negative.
-Pulm consult
-Sputum Culture so far unrevealing, although did show April, continue to follow
-Blood cultures with no growth to date
-Appreciate ID
-Continue supplemental oxygen to maintain SpO2>90% - currently on 7 L of supplemental oxygen
-IR consult for pleural drainage --> chest tube placed on 02/21/25 -- since minimal pleural fluid drainage, and loculated collection persisted, started intrapleural tPA/DNase x 3 doses (see Pleural Drainage note from IR from 02/23/25)
-CT Chest after 3 doses of tPA DNase -- and if loculated effusions persist, patient might need revision of chest tube versus placement of a second chest tube.
#Chest Pain/Flank Pain with reports of pallor and diaphoresis in setting of worsening hypoxia
-Could simply be from patient's necrotizing pneumonia
-Consulted cardiology given chest pain and EKG changes: no concerns for ACS
-Echo with LVEF 65 to 70% and mild aortic stenosis
-Given flank pain and pallor, along with hypoxia and SOB, concern for reaction following PRBC transfusion on 02/20/25, ordered hemolysis labs and consulted hematology. Based on labs, and the fact that patient does not have
new skins discoloration, hematolytic reaction unlikely. Low suspicion for TACO or TRALI.
-Transferred to IMU
-Appreciate hematology -- no concern for hemolytic reaction
#Microcytic Anemia from nosebleeds since ~mid January 2025 and reports of recent melena
#Recent history of melena and OB positive with brown stool in the ER
#Nose bleeds for the last few weeks (as of 02/22/25)
follow CBC, transfuse to keep hgb>7 -- per my phone discussion on 02/22/[address] supervisor [address] Pineda, can given standard leukoreduced PRBCs if needed
Received 1 unit PRBC on 02/20/25 and 1 unit of PRBC on 02/23/25
GI consult: endoscopy and colonoscopy when respiratory status is improved, can be done as outpatient since he currently has no active bleeding but sooner as inpatient if he has active bleeding
As of 02/23/25, patient has not had any bowel movements and no rectal bleeding either
Source of anemia could be his 3-4 week history of recurrent nosebleeds
Continue Protonix 40 mg BID
Patient reported that he has been having nose bleeds from the right nostril for the last few weeks, consulted ENT on 02/23/25 given persistent nosebleed
ENT cauterized nosebleed on 02/23/25
Avoid IV iron given infection above
Serum folate low-- B12 in lowest quartile--MMA level ordered--Folic acid started
#Constipation on CT Imaging
#Mild Diverticulosis
#Mobile intraperitoneal cecum situated in the left upper quadrant
#Reactive thrombocytosis - RESOLVED
follow
#Hypokalemia - RESOLVED
Replacements ordered
Magnesium normal
#Hyponatremia - RESOLVED
# Anxiety
-Bupropion, doxepin, escitalopram continued
-Check EKG in the morning to monitor QTc
#Essential Hypertension
- continue Norvasc
#GERD - PPI
#Alcohol Abuse
DVT Prophylaxis: SCDs. Lovenox (discussed with pulmonary and okay to continue Lovenox for now)
Code Status: Full Code
Anticipated Discharge: > 48 hours
Subjective/Interval History
-
Date of Service: February 23, 2025
Patient was seen and examined. He denied any further nosebleeding, and he also denied any bowel movement or rectal bleeding. He reported feeling better each day. No new symptoms or complaints.
Objective Data
-
Labs:
Laboratory Results
02/23/25 02/23/25
04:47 12:00
WBC 11.4 H
Hgb 6.8 L* Pending
Hct 20.6 L* Pending
Plt Count 397
Sodium 136
Potassium 3.7
Chloride 108 H
Carbon Dioxide 24
BUN 8 L
Creatinine 0.5 L
Glucose 99
Calcium 7.6 L
Vital Signs:
Vital Signs
Temp Pulse Resp BP Pulse Ox
98.2 F 97 22 123/95 97
02/23/25 03:00 02/23/25 06:00 02/23/25 06:00 02/23/25 06:00 02/23/25 06:00
I&O
02/22/25 02/23/25 02/24/25
06:59 06:59 06:59
Intake Total 960 / 960 1400 / 1400
Output Total 2795 / 2795 2195 / 2195 0 / 0
Balance -1835 / -1835 -795 / -795 0 / 0
--- NOTE | 2025-02-23 08:49 | W.PN.ID1 ---
Date of Service
Date of Service: February 23, 2025
Today's Communication
Continue antibiotics.
Assessment / Plan
Right-sided pneumonia
Suspected pulmonary necrosis/abscess
Leukocytosis
Fever
Anxiety/depression
Hypertension
Alcohol abuse
Recommendations:
Leukocytosis continues to improve.
Sputum culture unrevealing thus far, although poor quality specimens consisting mostly of spit.
Continue with empiric Zosyn.
Monitor chest tube output.
Follow pending cultures.
Follow white count and temperature curve.
����������������������������������������������������������
Chief Complaint
-: Pneumonia
Subjective / Review of Systems
Patient seen and examined. Reports feeling somewhat improved today. Reports breathing improved, with less chest discomfort with deep inspiration.
Review of Systems: No Fever and No Chills
Vital Signs / Physical Exam
Vital Signs
Vital Signs
Temp Pulse Resp BP Pulse Ox
98.7 F 97 22 123/95 97
02/23/25 08:00 02/23/25 06:00 02/23/25 06:00 02/23/25 06:00 02/23/25 06:00
Physical Exam
Constitutional: No Acute Distress, Comfortable and Non-toxic
Eyes: Sclera Anicteric
Cardiovascular: Regular Rate and S1/S2; Negative S3/S4
Pulmonary: Non Labored and Other (Right chest tube in place with serous drainage)
Gastrointestinal: Soft, Non Tender and Non Distended
Skin: Warm and Dry; Negative Rash or Jaundice
Neurological: Awake and Alert
Psychological: Calm
Objective Data
Lab Data
Lab Results
02/23/25 04:47
Estimated Creat Clear > 125 ml/min 02/23/25 04:47
Lactic Acid 1.3 mmol/L (0.7-2.0) 02/19/25 11:23
Total Bilirubin 0.4 mg/dl (0.2-1.3) 02/20/25 11:27
AST 12 U/L (17-59) L 02/20/25 11:27
ALT 13 U/L (0-50) 02/20/25 11:27
Alkaline Phosphatase 81 U/L (38-126) 02/20/25 11:27
Most recent labs reviewed.
Micro Results:
02/19/25 11:51 Blood Culture - Preliminary
Blood/Venous No Growth in 72 hours- Final report to follow
02/19/25 11:52 Blood Culture - Preliminary
Blood/Venous No Growth in 72 hours- Final report to follow
02/21/25 13:37 Respiratory Culture - Preliminary
Sputum Gram Stain - Preliminary
02/20/25 17:30 Body Fluid Culture - Preliminary
Pleural Fluid No Growth After 18-24 Hours
Gram Stain - Preliminary
02/20/25 17:30 Fungal Smear - Pending
Pleural Fluid Fungal Culture - Preliminary
Culture in progress.
Positive cultures are reported as soon as detected.
Final report to follow in four to five weeks.
02/20/25 07:41 Nasal Screen MRSA (PCR) - Final
Nose MRSA not detected - performed by PCR methodology.
02/19/25 11:23 Influenza Types A & B (CJ) - Final
Nasal Swab Negative for Influenza A & B, NAAT
Negative results must be combined with clinical observations
and patient history.
Nucleic Acid Amplification test (NAAT)performed on the
[employer] platform.
Imaging:
02/19/2025 CT chest/abdomen/pelvis: Moderate right pleural effusion. Hypodense pulmonary consolidation/pneumonia in the posterior right lower lobe. Concern for the possibility of parenchymal necrosis is noted. Borderline mediastinal adenopathy.
Mild hepatomegaly. Mild fatty infiltration. Mild diverticulosis without evidence for diverticulitis. Please see full dictation for additional detail.
[2025-02-23] MEDS: LEXAPRO 20 MG PO (09:04)
[2025-02-23] MEDS: FOLVITE 1 MG PO (09:04)
[2025-02-23] MEDS: NORVASC 10 MG PO (09:04)
[2025-02-23] MEDS: PROTONIX IV 40 MG IV ×2 (09:05→21:27)
[2025-02-23] MEDS: WELLBUTRIN XL (24 hour extended release) 300 MG PO (09:05)
[2025-02-23] MEDS: NSS (PRESERVATIVE FREE) 10 ML IV ×2 (09:05→21:27)
[2025-02-23] MEDS: OCEAN, SALINE MIST 2 SPRAYS NASAL ×4 (09:12→22:34)
--- NOTE | 2025-02-23 10:14 | PTCARENOTE ---
Patient is receiving on unit of PRBCs at this time. Temp 99.1 at the start, 99.7 15 minutes in. Patient educated about blood transfusion reactions and is denying symptoms/ and or pain at this time. Patient is in bed watching TV. Tolerated regular
breakfast.
--- NOTE | 2025-02-23 11:00 | PN.IRAD.UPD ---
Update Note - IRAD
- -
Instilled 50ml of TPA and 50ml of Dornase into right sided chest tube and clamped tube. Informed the nurse to unclamp the tube in 2 hours at 13:00.
Fidel Frost RT(R)()
--- NOTE | 2025-02-23 11:02 | W.PN.PUL3 ---
Today's Communication / Plan
-
- Intrapleural tPA/DNase started
- Continue for 3 doses, follow-up CT afterwards
- If loculated effusion persists after 3 doses of tPA/DNase on CT scan, will need revision of chest tube versus a second chest tube
Assessment
-
54-year-old man with past medical history noted. Admitted with 2-3 day history of shortness of breath, pleuritic type chest pain, fevers.. Generalized malaise. Black stools. Found to have right lower lobe pneumonia possibly necrotizing with
associated pleural effusion
Severe pneumonia with right complicated parapneumonic effusion
S/p thoracentesis 02/20/2025: Negative Gram stain-exudative.
Acute respiratory failure secondary to pneumonia-[address] chest: Showed right lower lobe possible necrotizing pneumonia with associated pleural effusion.
Sepsis due to above: Leukocytosis/fever/tachypnea.
Pleuritic type chest pain
Acute blood loss anemia-reports black stools.
-
Hypokalemia
Hyponatremia
Conditions present prior admission:
Alcohol abuse
Anxiety
Hypertension
GERD
Assessment and plan:
Clinical picture consistent with bacterial pneumonia/So far no evidence for pulmonary abscess: Possibly complicated aspiration pneumonia.
CT of the chest: Showed significant right lower lobe infiltrate with possible necrosis. Associated moderate pleural effusion. Borderline mediastinal adenopathy.
#1. Severe Pneumonia with complicated parapneumonic effusion versus empyema
-Pleural fluid studies show significantly elevated LDH
-Minimal pleural fluid drainage over last 24 hours, loculated collection persists on the chest x-ray
-Discussed with IR service (02/22), start intrapleural tPA/DNase x 3 doses
-Will pursue CT chest after 3 doses of tPA DNase. If loculated effusions persist, patient might need revision of chest tube versus placement of a second chest tube.
-Continue broad-spectrum antibiotic per ID service
-O2 support as needed
-Sputum culture if able-has not been able to produce.
-MRSA screening negative
-Blood culture negative to date so far
-Influenza negative
-COVID-negative
Hypoxemic respiratory failure: Improving.
Currently down to 2 L, saturating high 90s
-
Status post right chest tube placement 02/20/2025 total output 1330 cc
Pleural fluid exudative, pH 7.29/white blood cell 3041/88% polymorphs/glucose 69/total protein 3.6/LDH 1219.
Negative amylase and triglycerides.
Follow final cultures chest x-ray post
Follow cytology
Chest x-ray post-thoracentesis showing improvement: 02/21/2025- There is a rounded density projecting over the lateral aspect of the right mid to lower hemithorax, which is likely rounded fluid within a pleural fissure, stable. Patchy parenchymal
opacity within the right mid to lower lung, compatible with pneumonia and/or atelectasis. There is also confluent parenchymal opacity in the medial right lower lung, again with main differential considerations of atelectasis and/or pneumonia.
-
Former smoker without evidence of COPD.
Secretion clearance interventions
DuoNebs as needed
Acapella device
-
Per patient he has not drank alcohol in a year.
Chest pain: Likely pleuritic-improved postthoracentesis per
Echocardiogram showed normal LVEF. Mild . No RV dysfunction or regional motion wall abnormalities
Analgesia per primary team.
-
Hypokalemia being repleted- Improved. Defer to primary team.
Hyponatremia likely due to severe pneumonia- Improving.
-
Will follow
-
Subjective Data
-
Date of Service:
Date of Service: February 23, 2025
Chief Complaint: Pulmonary Follow Up (Severe pneumonia with complicated parapneumonic effusion)
Subjective:
Patient comfortably sitting in bed, no acute distress. No shortness of breath, minimal cough.
Review of Systems
Genitourinary: Other (No new symptoms reported)
Objective Data
Data Reviewed
Vital Signs / I&O / Oxygen:
Vital Signs
Temp Pulse Resp BP Pulse Ox
99.7 F 101 22 126/71 96
02/23/25 10:05 02/23/25 10:15 02/23/25 10:15 02/23/25 10:15 02/23/25 10:15
Intake and Output
02/22/25 02/23/25 02/24/25
06:59 06:59 06:59
Intake Total 960 / 960 1400 / 1400 0 / 0
Output Total 2795 / 2795 2195 / 2195 750 / 750
Balance -1835 / -1835 -795 / -795 -750 / -750
SaO2 96
Nasal Cannula flow liters per 2
minute
Physical Exam
General: Comfortable
HEENT: Normocephalic
Cardiovascular: S1-S2
Respiratory: Clear and Non-Labored Respirations
GI: Soft
Neurology: Awake, Alert and Oriented
Skin: Warm
Labs/Micro/Reports
Lab Data
02/23/25 04:47
Microbiology
02/19/25 11:51 Blood/Venous Blood Culture - Preliminary
No Growth in 72 hours- Final report to follow
02/19/25 11:52 Blood/Venous Blood Culture - Preliminary
No Growth in 72 hours- Final report to follow
02/21/25 13:37 Sputum Respiratory Culture - Preliminary
02/21/25 13:37 Sputum Gram Stain - Preliminary
02/20/25 17:30 Pleural Fluid Body Fluid Culture - Preliminary
No Growth After 18-24 Hours
02/20/25 17:30 Pleural Fluid Gram Stain - Preliminary
02/20/25 17:30 Pleural Fluid Fungal Culture - Preliminary
Culture in progress.
Positive cultures are reported as soon as detected.
Final report to follow in four to five weeks.
02/20/25 07:41 Nose Nasal Screen MRSA (PCR) - Final
MRSA not detected - performed by PCR methodology.
--- NOTE | 2025-02-23 14:44 | PTCARENOTE ---
Patients temperature has been slowly increasing this shift. It is now 100.1. Notified Dr. Daniel.
[2025-02-23] MEDS: TYLENOL 650 MG PO (15:13)
[2025-02-23 15:33] LABS: Hematocrit 25.7 % (39.0-52.0); Hemoglobin 8.4 g/dL (13.0-18.0)
--- NOTE | 2025-02-23 16:05 | PTCARENOTE ---
During blood transfusion patients temperature did not increase more than one degree, patient denied having any signs of reaction when asked. Temperature was in the 99 range. In the period after transfusion completion patients temp increased to
101.2. Discussed with Hospitalist and Pulmonary. Tylenol was administered. Patient has no signs of anaphylaxis, only complaining of discomfort at the chest tube site. Patient in good spirits talking to family at bedside.
--- NOTE | 2025-02-23 17:00 | PTCARENOTE ---
Patient had TPA placed in chest tube today, tube was clamped until [address] as [address] orders[address] Dr. Waller stated to place chest tube back to suction after being unclamped. Blood tinged drainage observed.
[2025-02-23] MEDS: LOVENOX 40 MG SC (17:27)
[2025-02-23 18:07] LABS: Haptoglobin 380 mg/dL (30-200)
[2025-02-23] MEDS: SINEQUAN 100 MG PO (21:26)
--- NOTE | 2025-02-23 22:00 | PTCARENOTE ---
Assumed care of Pt from adrienne RN. Pt is AAOx3, anxious at times and fidgety. bed alarm in use at this time. chest tube present to right chest, set to -20cm suction, dressing clean dry and intact. NSR on monitor. assessment as documented. call
light in reach.
[2025-02-24] VITALS (25 sets, daily range): BP systolic 106–144; BP diastolic 56–98; PULSE 100; O2SAT 94
[2025-02-24] MEDS: ZOSYN 50 IV ×4 (00:16→18:24)
[2025-02-24] MEDS: DILAUDID 1 MG IV ×4 (04:50→21:11)
[2025-02-24 05:25] LABS: % Basophils 0.5 % (0-2); % Eosinophils 4.2 % (0-6); % Immature Granulocytes 1.2 % (0-0.5); % Lymphocytes 6.9 % (20.5-51.1); % Monocytes 7.3 % (1.7-9.3); % Neutrophils 79.9 % (42.2-75.2); Absolute Basophils 0.1 10^3/uL (0-0.2); Absolute Eosinophils 0.5 10^3/uL (0-0.7); Absolute Immature Granulocytes 0.2 10^3/uL (0-0.05); Absolute Lymphocytes 0.8 10^3/uL (1.2-3.4); Absolute Monocytes 0.9 10^3/uL (0.1-0.6); Absolute Neutrophils 9.7 10^3/uL (1.4-6.5); Hematocrit 24.4 % (39.0-52.0); Hemoglobin 8.1 g/dL (13.0-18.0); Mean Corp Hgb Conc. 33.2 g/dL (33.0-37.0); Mean Corpuscular Hgb 25.2 pg (27.0-31.0); Mean Corpuscular Volume 75.8 fL (80.0-94.0); Mean Platelet Volume 9.6 fL (7.4-10.4); Nucleated Red Blood Cells % 0 % (-); Platelet Count 466 10^3/uL (130-400); Red Blood Cell Count 3.22 10^6/uL (4.70-6.10); Red Cell Dist. Width 16.3 % (11.5-14.5); White Blood Cell Count 12.1 10^3/uL (4.8-10.8)
[2025-02-24 05:44] LABS: Albumin 2.5 g/dl (3.5-5.0); Blood Urea Nitrogen 6 mg/dl (9-20); Calcium 7.6 mg/dl (8.4-10.2); Carbon Dioxide 24 mmol/L (22-30); Chloride 108 mmol/L (98-107); Estimated Creatinine Clearance > 125 ml/min; Glucose 110 mg/dl (70-99); Magnesium 2.1 mg/dl (1.6-2.3); Potassium 3.8 mmol/L (3.5-5.1); Sodium 136 mmol/L (135-145); eGFR > 60.00
--- NOTE | 2025-02-24 08:32 | W.PN.HOSP.TC ---
Today's Communication/Plan
-
Reconsult GI
Monitor hemoglobin
wean oxygen
Assessment / Plan
Assessment / Plan
Gen-AAOx3, NAD
HEENT-NC, AT, anicteric, clear oral mm
Neck-supple
CV-reg, no M, +S1/S2
Lungs-clear B/L, decreased breath sounds right side
Abd-soft, NT, ND
Ext-no edema
Musculoskeletal-no cyanosis, clubbing
Skin-warm and dry
Neuro-grossly non-focal
Psych-calm, cooperative
Acute hypoxic respiratory failure - secondary to right sided necrotizing pneumonia. Oxygenation improving, down to 2 L nasal cannula currently.
RLL necrotizing pneumonia with complicated parapneumonic effusion -Chest Tube placed on 02/21/25
Moderate Right Pleural Effusion
-IR consult for pleural drainage --> chest tube placed on 02/21/25 -- since minimal pleural fluid drainage, and loculated collection persisted, started intrapleural tPA/DNase x 3 doses (see Pleural Drainage note from IR from 02/23/25)
-CT Chest after 3 doses of tPA DNase -- and if loculated effusions persist, patient might need revision of chest tube versus placement of a second chest tube.
Chest x-ray this morning 02/24 shows stable appearance of rounded pleural-based density projecting over the right lateral mid lung and loculated right-sided pleural effusion. Unchanged position of right-sided pigtail chest tube.
Sepsis Secondary to right-sided community-acquired pneumonia -blood cultures negative. COVID and influenza negative. Remains on IV Zosyn. April albicans and respiratory culture likely contaminant.
Acute anemia -microcytic. Heme positive stools in the emergency room. ENT input noted, unlikely to be acute anemia due to epistaxis. Has required 2 units of blood transfused this admission.
Suspect anemia due to ongoing GI blood loss. GI service reconsulted. Hemoglobin 8.1 this morning. Last episode of epistaxis was 2 days ago.
No bowel movements in the hospital. Did have melena prior to admission.
Not iron deficient based on blood work.
Right-sided epistaxis -Patient reported that he has been having nose bleeds from the right nostril for the last few weeks, consulted ENT on 02/23/25 given persistent nosebleed
ENT cauterized nosebleed on 02/23/25
Serum folate low-- B12 in lowest quartile--MMA level ordered--Folic acid started
Constipation on CT Imaging
Mild Diverticulosis
Mobile intraperitoneal cecum situated in the left upper quadrant
Reactive thrombocytosis - RESOLVED
Hypokalemia - RESOLVED
Replacements ordered
Magnesium normal
Hyponatremia - RESOLVED
Anxiety
Essential Hypertension
- continue Norvasc
GERD - PPI
Alcohol use disorder
Obesity due to excess calories
Full code
Anticipated Discharge: > 48 hours
Subjective/Interval History
-
Date of Service: February 24, 2025
Patient seen and examined, no complaints. Shortness of breath improving.
Objective Data
-
Labs:
Laboratory Results
02/24/25
04:45
WBC 12.1 H
Hgb 8.1 L
Hct 24.4 L
Plt Count 466 H
Sodium 136
Potassium 3.8
Chloride 108 H
Carbon Dioxide 24
BUN 6 L
Creatinine 0.6 L
Glucose 110 H
Calcium 7.6 L
Vital Signs:
Vital Signs
Temp Pulse Resp BP Pulse Ox
99.3 F 91 18 129/84 94
02/24/25 03:02 02/24/25 06:00 02/24/25 06:00 02/24/25 06:00 02/24/25 06:00
I&O
02/23/25 02/24/25 02/25/25
06:59 06:59 06:59
Intake Total 1400 / 1400 1370 / 1370
Output Total 2195 / 2195 2433 / 2433
Balance -795 / -795 -1063 / -1063
Review of Systems
-
History Source: Patient
All other systems: Reviewed and negative
--- NOTE | 2025-02-24 09:28 | W.PN.PUL3 ---
Today's Communication / Plan
-
Trial of tPA/dornase again today, monitor output
Output remains too high for discontinuation assessment, keep on suction
Plan for CT chest in AM
Encouraged OOB, PT/OT
Abx/pain control per team
Assessment
-
54-year-old man with past medical history noted. Admitted with 2-3 day history of shortness of breath, pleuritic type chest pain, fevers.. Generalized malaise. Black stools. Found to have right lower lobe pneumonia possibly necrotizing with
associated pleural effusion
Severe pneumonia with right complicated parapneumonic effusion
S/p thoracentesis 02/20/2025: Negative Gram stain-exudative.
Acute respiratory failure secondary to pneumonia-[address] chest: Showed right lower lobe possible necrotizing pneumonia with associated pleural effusion.
Sepsis due to above: Leukocytosis/fever/tachypnea.
Pleuritic type chest pain
Acute blood loss anemia-reports black stools.
Hypokalemia
Hyponatremia
Conditions present prior admission:
Alcohol abuse
Anxiety
Hypertension
GERD
Plan:
Currently on RA, stable no complaints
Chest tube remains to suction
Clinical picture consistent with bacterial pneumonia/So far no evidence for pulmonary abscess: Possibly complicated aspiration pneumonia.
CT of the chest: Showed significant right lower lobe infiltrate with possible necrosis. Associated moderate pleural effusion. Borderline mediastinal adenopathy.
Severe Pneumonia with complicated parapneumonic effusion versus empyem
Status post right chest tube placement 02/20/2025 total output 1330 cc
Pleural fluid studies show significantly elevated LDH
Minimal pleural fluid drainage over last 24 hours, loculated collection persists on the chest x-ray
Discussed with IR service (02/22), start intrapleural tPA/DNase x [address] chest after doses of tPA DNase. Trial again today, d/w IR 02/[address] in AM
Continue broad-spectrum antibiotic per ID service
Sputum culture if able-april + 02/21
Pleural cultures negative 02/20
MRSA screening negative
Blood culture negative to date so far
Influenza negative
COVID-negative
Pleural studies:
Pleural fluid exudative, pH 7.29/white blood cell 3041/88% polymorphs/glucose 69/total protein 3.6/LDH 1219--possible parapneumonic
Negative amylase and triglycerides.
Final cultures and cytology are negative
Chest pain: Likely pleuritic-improved post-thoracentesis, chest tube may cause pain as well
PRN pain control
Analgesia per primary team
Former smoker without evidence of COPD.
Secretion clearance interventions
DuoNebs as needed
Acapella device
Per patient he has not drank alcohol in a year.
Aspiration precautions
Echocardiogram showed normal LVEF. Mild . No RV dysfunction or regional motion wall abnormalities
No CHF findings
Hypokalemia being repleted- Improved. Defer to primary team.
Hyponatremia likely due to severe pneumonia- Improving.
Discussed plan of care with patient and nurse at bedside
Will follow
Diagnostic Data
CXR 02/24/25- There is stable appearance of the rounded pleural-based density projecting over the lateral right midlung and loculated right-sided pleural effusion.
02/22/25- Stable right-sided chest tube. Tiny right pleural effusion. New. Stable pleural-based rounded density in the lateral mid right lung field consistent with loculated pleural fluid on prior chest CT examination. Right-sided decreased lung
volume. Progressed. Cardiomegaly. Stable
CT CAP 02/19/25- Moderate right pleural effusion. Hypodense pulmonary consolidation/pneumonia in the posterior right lower lobe, raising possibility of parenchymal necrosis. Borderline mediastinal adenopathy.
Fat-containing hernia esophageal hiatus measuring approximately 6 cm. Mild hepatomegaly. Mild fatty infiltration and a few tiny cysts suggested. Mild diverticulosis. No evidence of acute diverticulitis. Mobile intraperitoneal cecum situated in the
left upper quadrant. Constipation with mild to moderate fecal burden in the cecum and ascending colon. The appendix is not identified with certainty. No secondary signs of appendicitis.
ECHO 02/20/25- Left ventricular ejection fraction is 65-70%. Normal regional wall motion. Normal right ventricular size and function. Mild aortic stenosis; peak/mean gradients 29/16 mmHg, calculated DUNG 1.6 cm2. No prior study available for
comparison.
-----
Total time spent today was 51 minutes for this encounter. Time includes reviewing laboratory test/imaging results, reviewing pertinent medical records, obtaining and reviewing medical history, performing an appropriate exam, ordering medications,
tests and procedures. Time also includes documentation of this encounter, coordinating patient care and communicating with other healthcare professionals. Total time does not include separately billed tests performed on this date of service.
Subjective Data
-
Date of Service:
Date of Service: February 24, 2025
Chief Complaint: Pulmonary Follow Up (Severe pneumonia with complicated parapneumonic effusion)
Subjective:
Remains stable on RA
Chest tube with 800mL overnight per records
Has some chest pain with movement, coughing periodically
Objective Data
Data Reviewed
Vital Signs / I&O / Oxygen:
Vital Signs
Temp Pulse Resp BP Pulse Ox
99.3 F 91 18 129/84 94
02/24/25 03:02 02/24/25 06:00 02/24/25 06:00 02/24/25 06:00 02/24/25 06:00
Intake and Output
02/23/25 02/24/25 02/25/25
06:59 06:59 06:59
Intake Total 1400 / 1400 1370 / 1370
Output Total 2195 / 2195 2433 / 2433
Balance -795 / -795 -1063 / -1063
SaO2 94
Nasal Cannula flow liters per 4
minute
Physical Exam
General: Comfortable and Good Appetite
HEENT: Normocephalic and Sinus Tenderness
Cardiovascular: S1-S2 and Regular Rhythm
Respiratory: Clear, Non-Labored Respirations and Chest Tube
GI: Soft, Non Distended and Non Tender
Neurology: Awake, Alert, Oriented and No Motor Deficits
Skin: Warm, Dry and Good Color
Labs/Micro/Reports
Lab Data
02/24/25 04:45
02/24/25 04:45
Microbiology
02/20/25 17:30 Pleural Fluid Body Fluid Culture - Final
No Growth After 72 Hours
02/20/25 17:30 Pleural Fluid Gram Stain - Final
02/19/25 11:51 Blood/Venous Blood Culture - Preliminary
No Growth in 4 days- Final report to follow
02/19/25 11:52 Blood/Venous Blood Culture - Preliminary
No Growth in 4 days- Final report to follow
02/21/25 13:37 Sputum Respiratory Culture - Final
April albicans
02/21/25 13:37 Sputum Gram Stain - Final
02/20/25 17:30 Pleural Fluid Fungal Culture - Preliminary
Culture in progress.
Positive cultures are reported as soon as detected.
Final report to follow in four to five weeks.
[2025-02-24] MEDS: FOLVITE 1 MG PO (10:08)
[2025-02-24] MEDS: NORVASC 10 MG PO (10:08)
[2025-02-24] MEDS: COLACE 100 MG PO ×2 (10:08→21:10)
[2025-02-24] MEDS: OCEAN, SALINE MIST 2 SPRAYS NASAL ×3 (10:09→21:10)
[2025-02-24] MEDS: PROTONIX IV 40 MG IV ×2 (10:09→21:10)
[2025-02-24] MEDS: SENOKOT 8.6 MG PO ×2 (10:09→21:10)
[2025-02-24] MEDS: WELLBUTRIN XL (24 hour extended release) 300 MG PO (10:09)
[2025-02-24] MEDS: NSS (PRESERVATIVE FREE) 10 ML IV ×2 (10:09→21:10)
[2025-02-24] MEDS: LEXAPRO 20 MG PO (10:09)
--- NOTE | 2025-02-24 10:18 | W.PN.GI.CBS2 ---
Addendum entered and electronically signed by Inder Vazquez MD 02/24/25 14:35:
I saw and examined the patient.
The EXPERIM[employer]ELOPER or PA's note was reviewed and I agree with the note.
Comment:
This patient is a 54-year-old man who was seen by GI in the past to his a history of sepsis due to pneumonia with a chest tube. He also has a history of a nosebleed with melena and does take NSAIDs. He does intermittently drop his hemoglobin. He
is able to tolerate food and he does not have any significant abdominal pain. He does have constipation
alert, anicteric
impression:
anemia
melena form nose bleed?
plan:
1. follow hgb
2. add miralax
3. eventual egd/colon, outpatient vs intpatient
4. avoid nsaids
5. PPI
Original Note:
Today's Communication / Plan
-
As per plan
Assessment / Plan
-
54-year-old male who presented with shortness of breath, fevers, chills and a cough and has been diagnosed with right lower lobe necrotizing pneumonia and has been started on broad-spectrum antibiotics. Continues on Zosyn.
--> Chest tube placed on 02/21/2025. tPA administered on 02/23/2025 through chest tube. Sepsis secondary to pneumonia.
Anemia with recent history of melena and OB positive with brown stool in the ER. No further bowel movement since admission. Significant constipation. Also with significant epistaxis ( 3 to 4 weeks). ENT cauterized 02/23/2025.
--> Anemia most likely could be related to peptic ulcer disease since he takes Advil PM daily and also takes aspirin versus angioectasias versus less likely neoplasm.
--> Hemoglobin slowly decreasing again. Patient's status posttransfusion 2 units packed red blood cells since admission.
--> Continue pantoprazole 40 mg IV twice daily. Patient has consistently been on. BUN not out of proportion of creatinine.
--> will schedule endoscopy and colonoscopy when respiratory status is improved, can be performed as outpatient unless needed sooner.
Constipation
--> Patient has been on senna and Colace both twice daily. No bowel movement since arrival. Significant constipation seen on CT on admission.
---> No abdominal pain. Will give Dulcolax suppository now. Will also start MiraLAX. No significant stool seen in rectosigmoid on most recent CT on admission.
Subjective
Subjective
Date of Service: February 24, 2025
Asked reevaluate patient as hemoglobin dropped down to 6.8 from 7.3 requiring transfusion 1 unit packed red blood cells with hemoglobin going up to 8.1 this morning. Patient did have large amount of epistaxis (3 to 4-week history) requiring ENT
cautery 02/23/2025. The patient states that his epistaxis was significant and that he swallowed a large amount of blood. The patient has not had a bowel movement since admission. Patient status post right chest tube placement with tPA
administration yesterday. The patient has been on pantoprazole 40 mg IV twice daily. Patient is currently on 2 L nasal cannula. BUN is not out of proportion of creatinine. Patient denies any abdominal pain. Tolerating diet.
Objective
Data Reviewed
Laboratory Data:
Laboratory Results
02/24/25 04:45
02/24/25 04:45
Laboratory Results
Magnesium 2.1 mg/dl (1.6-2.3) 02/24/25 04:45
Total Bilirubin 0.4 mg/dl (0.2-1.3) 02/20/25 11:27
AST 12 U/L (17-59) L 02/20/25 11:27
ALT 13 U/L (0-50) 02/20/25 11:27
Alkaline Phosphatase 81 U/L (38-126) 02/20/25 11:27
Lipase 20 U/L (23-300) L 02/19/25 11:23
Vital Signs and I&O:
Vital Signs
Temp Pulse Resp BP Pulse Ox
99.3 F 91 18 129/84 94
02/24/25 03:02 02/24/25 06:00 02/24/25 06:00 02/24/25 06:00 02/24/25 06:00
I&O
02/23/25 02/24/25 02/25/25
06:59 06:59 06:59
Intake Total 1400 / 1400 1370 / 1370
Output Total 2195 / 2195 2433 / 2433
Balance -795 / -795 -1063 / -1063
Physical Exam
Physical Exam
HEENT: Anicteric
Cardiology: Normal Sinus Rhythm
Pulmonary: Clear (Anterior) and Other (Right-sided chest tube in place)
GI: Soft, Non Distended, Non Tender and Normal Bowel Sounds
Extremities: No Edema
Neuro: Non Focal
--- NOTE | 2025-02-24 11:58 | W.PN.ID1 ---
Date of Service
Date of Service: February 24, 2025
Today's Communication
Continue antibiotics.
Assessment / Plan
Right-sided pneumonia
Suspected pulmonary necrosis/abscess
Leukocytosis
Fever
Anxiety/depression
Hypertension
Alcohol abuse
Recommendations:
Leukocytosis overall improved and stable today.
Sputum culture unrevealing thus far, although poor quality specimens consisting mostly of spit.
Continue with empiric Zosyn.
Monitor chest tube output.
Follow pending cultures.
Follow white count and temperature curve.
����������������������������������������������������������
Chief Complaint
-: Pneumonia
Subjective / Review of Systems
Patient seen and examined. Reports feeling well. Denies fevers. Minimal cough.
Review of Systems: No Fever and No Chills
Vital Signs / Physical Exam
Vital Signs
Vital Signs
Temp Pulse Resp BP Pulse Ox
99.3 F 91 18 129/84 95
02/24/25 03:02 02/24/25 06:00 02/24/25 06:00 02/24/25 06:00 02/24/25 08:37
Physical Exam
Constitutional: No Acute Distress, Comfortable and Non-toxic
Eyes: Sclera Anicteric
Cardiovascular: Regular Rate and S1/S2; Negative S3/S4
Pulmonary: Non Labored and Other (Right chest tube in place with serous drainage)
Gastrointestinal: Soft, Non Tender and Non Distended
Skin: Warm and Dry; Negative Rash or Jaundice
Neurological: Awake and Alert
Psychological: Calm
Objective Data
Lab Data
Lab Results
02/24/25 04:45
02/24/25 04:45
Estimated Creat Clear > 125 ml/min 02/24/25 04:45
Lactic Acid 1.3 mmol/L (0.7-2.0) 02/19/25 11:23
Total Bilirubin 0.4 mg/dl (0.2-1.3) 02/20/25 11:27
AST 12 U/L (17-59) L 02/20/25 11:27
ALT 13 U/L (0-50) 02/20/25 11:27
Alkaline Phosphatase 81 U/L (38-126) 02/20/25 11:27
Most recent labs reviewed.
Micro Results:
02/20/25 17:30 Body Fluid Culture - Final
Pleural Fluid No Growth After 72 Hours
Gram Stain - Final
02/19/25 11:51 Blood Culture - Preliminary
Blood/Venous No Growth in 4 days- Final report to follow
02/19/25 11:52 Blood Culture - Preliminary
Blood/Venous No Growth in 4 days- Final report to follow
02/21/25 13:37 Respiratory Culture - Final
Sputum April albicans
Gram Stain - Final
02/20/25 17:30 Fungal Smear - Pending
Pleural Fluid Fungal Culture - Preliminary
Culture in progress.
Positive cultures are reported as soon as detected.
Final report to follow in four to five weeks.
02/20/25 07:41 Nasal Screen MRSA (PCR) - Final
Nose MRSA not detected - performed by PCR methodology.
02/19/25 11:23 Influenza Types A & B (CJ) - Final
Nasal Swab Negative for Influenza A & B, NAAT
Negative results must be combined with clinical observations
and patient history.
Nucleic Acid Amplification test (NAAT)performed on the
[employer] platform.
Imaging:
02/24/2025 CXR (portable): Stable appearance of the rounded pleural-based density projecting over the lateral right midlung and loculated right-sided pleural effusion. Please see full dictation for additional detail.
02/19/2025 CT chest/abdomen/pelvis: Moderate right pleural effusion. Hypodense pulmonary consolidation/pneumonia in the posterior right lower lobe. Concern for the possibility of parenchymal necrosis is noted. Borderline mediastinal adenopathy.
Mild hepatomegaly. Mild fatty infiltration. Mild diverticulosis without evidence for diverticulitis. Please see full dictation for additional detail.
Chest X-Ray: Image Reviewed and Report Reviewed
--- NOTE | 2025-02-24 11:58 | W.PN.UPDATE ---
Update Note
Progress Note Update
Per Blood Bank final report, no evidence of hemolytic transfusion reaction.
[2025-02-24 12:08] LABS: LDH 147 U/L (120-246); Total Protein 4.7 g/dl (6.3-8.2)
[2025-02-24] MEDS: MIRALAX 17 GRAMS PO (12:08)
[2025-02-24] MEDS: DULCOLAX 10 MG RECTAL (12:08)
--- NOTE | 2025-02-24 12:20 | PN.IRAD.UPD ---
Update Note - IRAD
- -
went bedside at 1215 to instill tpa/dornase into patient's right sided chest tube. was only able to inject 25mg of tpa, and 30mg of dornase due to pain. reconnected tube and instructed nurse Kati to unclamp and back to suction in two hours
([id number]) no other complaints.
--- NOTE | 2025-02-24 12:25 | PTCARENOTE ---
IR at bedside. CT clamped for 2 hours by IR nurse. Instructed to unclamp and put back to suction at 14:15.
--- NOTE | 2025-02-24 14:38 | PTCARENOTE ---
CT unclamped and placed back to suction. Shortly after, pt rang call lima to report chest pain and difficulty breathing. C/O 10/10 chest pain. Difficulty speaking. VSS. IR and Pulmonary notified via TT. Pt for repeat CXR and EKG.
--- NOTE | 2025-02-24 15:20 | PTCARENOTE ---
Pt reassessed, reports feeling much improved. VSS.
[2025-02-24] MEDS: LOVENOX 40 MG SC (18:24)
[2025-02-24] MEDS: OCEAN, SALINE MIST NASAL (18:25)
[2025-02-24] MEDS: SINEQUAN 100 MG PO (21:09)
[2025-02-25] VITALS (14 sets, daily range): BP systolic 109–136; BP diastolic 65–81; BMI 29.0
[2025-02-25] MEDS: ZOSYN 50 IV ×5 (00:15→23:38)
--- NOTE | 2025-02-25 03:50 | PTCARENOTE ---
Pt aaox3, forgetful, able to make needs known. Bed alarm in place. Dilaudid given x1 for pain at chest tube site and in lower back. VSS. Remains on 2LNC. SaO2 94%. Resting comfortably in bed, care ongoing.
[2025-02-25 05:06] LABS: % Basophils 0.6 % (0-2); % Eosinophils 4.8 % (0-6); % Immature Granulocytes 1.4 % (0-0.5); % Lymphocytes 9.3 % (20.5-51.1); % Monocytes 8.3 % (1.7-9.3); % Neutrophils 75.6 % (42.2-75.2); Absolute Basophils 0.1 10^3/uL (0-0.2); Absolute Eosinophils 0.5 10^3/uL (0-0.7); Absolute Immature Granulocytes 0.2 10^3/uL (0-0.05); Absolute Monocytes 0.9 10^3/uL (0.1-0.6); Absolute Neutrophils 8.2 10^3/uL (1.4-6.5); Hematocrit 24.9 % (39.0-52.0); Hemoglobin 8.3 g/dL (13.0-18.0); Mean Corp Hgb Conc. 33.3 g/dL (33.0-37.0); Mean Corpuscular Hgb 25.2 pg (27.0-31.0); Mean Corpuscular Volume 75.5 fL (80.0-94.0); Mean Platelet Volume 9.8 fL (7.4-10.4); Nucleated Red Blood Cells % 0 % (-); Platelet Count 543 10^3/uL (130-400); Red Cell Dist. Width 16.6 % (11.5-14.5); White Blood Cell Count 10.9 10^3/uL (4.8-10.8)
[2025-02-25] MEDS: DILAUDID 1 MG IV ×4 (05:13→23:39)
[2025-02-25 05:21] LABS: Blood Urea Nitrogen 6 mg/dl (9-20); Calcium 7.7 mg/dl (8.4-10.2); Carbon Dioxide 24 mmol/L (22-30); Chloride 106 mmol/L (98-107); Estimated Creatinine Clearance > 125 ml/min; Glucose 96 mg/dl (70-99); Potassium 3.9 mmol/L (3.5-5.1); Sodium 137 mmol/L (135-145); eGFR > 60.00
--- NOTE | 2025-02-25 05:50 | W.PN.GI.CBS2 ---
Today's Communication / Plan
-
Please see assessment and plan for details.
Assessment / Plan
-
1. Anemia: Likely multifactorial, with melena likely from significant epistaxis, received 2 units this admission, now stable without any signs of gross bleeding. There could be some pulmonary of anemia of chronic disease given his severe pneumonia
with likely necrosis and parapneumonic effusion. Per no signs of hemolysis. Again, without signs of significant active bleeding now we will hold on endoscopy and colonoscopy, will likely plan as outpatient when recovers from pneumonia/effusion.
2. Constipation: Did have bowel movement yesterday after suppository, continue MiraLAX for now.
Subjective
Subjective
Date of Service: February 25, 2025
Patient feeling okay, denies any abdominal pain. Did have a bowel movement after suppository, no reports of gross bleeding or loose stools. No abdominal pain, nausea or vomiting, tolerating diet without difficulty.
Objective
Data Reviewed
Laboratory Data:
Laboratory Results
02/25/25 04:40
02/25/25 04:40
Laboratory Results
Magnesium 2.1 mg/dl (1.6-2.3) 02/24/25 04:45
Total Bilirubin 0.4 mg/dl (0.2-1.3) 02/20/25 11:27
AST 12 U/L (17-59) L 02/20/25 11:27
ALT 13 U/L (0-50) 02/20/25 11:27
Alkaline Phosphatase 81 U/L (38-126) 02/20/25 11:27
Lipase 20 U/L (23-300) L 02/19/25 11:23
Vital Signs and I&O:
Vital Signs
Temp Pulse Resp BP Pulse Ox
98.4 F 88 18 119/79 93
02/25/25 03:27 02/25/25 05:00 02/25/25 02:00 02/25/25 05:00 02/25/25 05:00
I&O
02/23/25 02/24/25 02/25/25
06:59 06:59 06:59
Intake Total 1400 / 1400 1370 / 1370 860 / 860
Output Total 2195 / 2195 2433 / 2433 3955 / 3955
Balance -795 / -795 -1063 / -1063 -3095 / -3095
Physical Exam
Physical Exam
General: NAD
Abdomen: normal bowel sounds, soft, no tenderness, no masses or bruits, no ascites
--- NOTE | 2025-02-25 07:38 | W.PN.HOSP.TC ---
Today's Communication/Plan
-
Continue antibiotics
Await CT chest
Wean oxygen
Assessment / Plan
Assessment / Plan
Gen-AAOx3, NAD
HEENT-NC, AT, anicteric, clear oral mm
Neck-supple
CV-reg, no M, +S1/S2
Lungs-clear B/L, decreased breath sounds right side
Abd-soft, NT, ND
Ext-no edema
Musculoskeletal-no cyanosis, clubbing
Skin-warm and dry
Neuro-grossly non-focal
Psych-calm, cooperative
Acute hypoxic respiratory failure - secondary to right sided necrotizing pneumonia. Oxygenation improving, down to 2 L nasal cannula currently.
RLL necrotizing pneumonia with complicated parapneumonic effusion -Chest Tube placed on 02/21/25
Moderate Right Pleural Effusion
-IR consult for pleural drainage --> chest tube placed on 02/21/25 -- since minimal pleural fluid drainage, and loculated collection persisted, started intrapleural tPA/DNase x 3 doses (see Pleural Drainage note from IR from 02/23/25)
-CT Chest after 3 doses of tPA DNase -- and if loculated effusions persist, patient might need revision of chest tube versus placement of a second chest tube.
For repeat CT chest today, 02/25.
Sepsis Secondary to right-sided community-acquired pneumonia -blood cultures negative. COVID and influenza negative. Remains on IV Zosyn. April albicans and respiratory culture likely contaminant.
Acute anemia -microcytic. Heme positive stools in the emergency room. ENT input noted, unlikely to be acute anemia due to epistaxis. Has required 2 units of blood transfused this admission.
Suspect anemia due to ongoing GI blood loss. GI service reconsulted, recommendation is for outpatient endoscopy. Hemoglobin stable at 8.3 this morning. Last episode of epistaxis was 2 days ago.
Did have melena prior to admission. Had a brown bowel movement 02/24.
Not iron deficient based on blood work.
Right-sided epistaxis -Patient reported that he has been having nose bleeds from the right nostril for the last few weeks.
ENT cauterized nosebleed on 02/23/25
Serum folate low-- B12 in lowest quartile--MMA level ordered--Folic acid started
Constipation on CT Imaging -bowels are moving.
Mild Diverticulosis
Mobile intraperitoneal cecum situated in the left upper quadrant
Reactive thrombocytosis - RESOLVED
Hypokalemia - RESOLVED
Replacements ordered
Magnesium normal
Hyponatremia - RESOLVED
Anxiety
Essential Hypertension
- continue Norvasc
GERD - PPI
Alcohol use disorder
Obesity due to excess calories
Full code
Anticipated Discharge: > 48 hours
Subjective/Interval History
-
Date of Service: February 25, 2025
Patient seen and examined. No complaints.
Objective Data
-
Labs:
Laboratory Results
02/25/25
04:40
WBC 10.9 H
Hgb 8.3 L
Hct 24.9 L
Plt Count 543 H
Sodium 137
Potassium 3.9
Chloride 106
Carbon Dioxide 24
BUN 6 L
Creatinine 0.6 L
Glucose 96
Calcium 7.7 L
Vital Signs:
Vital Signs
Temp Pulse Resp BP Pulse Ox
98.4 F 88 18 119/79 93
02/25/25 03:27 02/25/25 05:00 02/25/25 02:00 02/25/25 05:00 02/25/25 05:00
I&O
02/24/25 02/25/25 02/26/25
06:59 06:59 06:59
Intake Total 1370 / 1370 860 / 860
Output Total 2433 / 2433 3955 / 3955 20 / 20
Balance -1063 / -1063 -3095 / -3095 -20 / -20
Review of Systems
-
History Source: Patient
All other systems: Reviewed and negative
--- NOTE | 2025-02-25 09:17 | W.PN.PUL3 ---
Today's Communication / Plan
-
s/p lysis 02/24, output 800mL overnight
CT planning today
Was able to get OOB yesterday, encouraged continued PT in room
Continue chest tube to suction another 24 hours
Assessment
-
54-year-old man with past medical history noted. Admitted with 2-3 day history of shortness of breath, pleuritic type chest pain, fevers.. Generalized malaise. Black stools. Found to have right lower lobe pneumonia possibly necrotizing with
associated pleural effusion
Severe pneumonia with right complicated parapneumonic effusion
S/p thoracentesis 02/20/2025: Negative Gram stain-exudative.
Acute respiratory failure secondary to pneumonia-[address] chest: Showed right lower lobe possible necrotizing pneumonia with associated pleural effusion.
Sepsis due to above: Leukocytosis/fever/tachypnea.
Pleuritic type chest pain
Acute blood loss anemia-reports black stools.
Hypokalemia
Hyponatremia
Conditions present prior admission:
Alcohol abuse
Anxiety
Hypertension
GERD
Plan:
Currently on RA, stable no complaints
Chest tube remains to suction
Clinical picture consistent with bacterial pneumonia/So far no evidence for pulmonary abscess: Possibly complicated aspiration pneumonia.
CT of the chest: Showed significant right lower lobe infiltrate with possible necrosis. Associated moderate pleural effusion. Borderline mediastinal adenopathy.
Severe Pneumonia with complicated parapneumonic effusion versus empyem
Status post right chest tube placement 02/20/2025 total output 1330 cc
Pleural fluid studies show significantly elevated LDH
Minimal pleural fluid drainage over last 24 hours, loculated collection persists on the chest x-ray
Discussed with IR service (02/22), s/p intrapleural tPA/DNase x [address] chest after doses of tPA DNase 02/25
Output overnight 800mL
Continue broad-spectrum antibiotic per ID service
Sputum culture if able-april + 02/21
Pleural cultures negative 02/20
MRSA screening negative
Blood culture negative to date so far
Influenza negative
COVID-negative
Pleural studies:
Pleural fluid exudative, pH 7.29/white blood cell 3041/88% polymorphs/glucose 69/total protein 3.6/LDH 1219--possible parapneumonic
Negative amylase and triglycerides.
Final cultures and cytology are negative
Chest pain: Likely pleuritic-improved post-thoracentesis, chest tube may cause pain as well
PRN pain control
Analgesia per primary team
Former smoker without evidence of COPD.
Secretion clearance interventions
DuoNebs as needed
Acapella device
Per patient he has not drank alcohol in a year.
Aspiration precautions
Echocardiogram showed normal LVEF. Mild . No RV dysfunction or regional motion wall abnormalities
No CHF findings
Hypokalemia being repleted- Improved. Defer to primary team.
Hyponatremia likely due to severe pneumonia- Improving.
Discussed plan of care with patient and nurse at bedside
Will follow
Diagnostic Data
CXR 02/24/25- There is stable appearance of the rounded pleural-based density projecting over the lateral right midlung and loculated right-sided pleural effusion.
02/22/25- Stable right-sided chest tube. Tiny right pleural effusion. New. Stable pleural-based rounded density in the lateral mid right lung field consistent with loculated pleural fluid on prior chest CT examination. Right-sided decreased lung
volume. Progressed. Cardiomegaly. Stable
CT CAP 02/19/25- Moderate right pleural effusion. Hypodense pulmonary consolidation/pneumonia in the posterior right lower lobe, raising possibility of parenchymal necrosis. Borderline mediastinal adenopathy.
Fat-containing hernia esophageal hiatus measuring approximately 6 cm. Mild hepatomegaly. Mild fatty infiltration and a few tiny cysts suggested. Mild diverticulosis. No evidence of acute diverticulitis. Mobile intraperitoneal cecum situated in the
left upper quadrant. Constipation with mild to moderate fecal burden in the cecum and ascending colon. The appendix is not identified with certainty. No secondary signs of appendicitis.
ECHO 02/20/25- Left ventricular ejection fraction is 65-70%. Normal regional wall motion. Normal right ventricular size and function. Mild aortic stenosis; peak/mean gradients 29/16 mmHg, calculated DUNG 1.6 cm2. No prior study available for
comparison.
-----
Total time spent today was 51 minutes for this encounter. Time includes reviewing laboratory test/imaging results, reviewing pertinent medical records, obtaining and reviewing medical history, performing an appropriate exam, ordering medications,
tests and procedures. Time also includes documentation of this encounter, coordinating patient care and communicating with other healthcare professionals. Total time does not include separately billed tests performed on this date of service.
Subjective Data
-
Date of Service:
Date of Service: February 25, 2025
Chief Complaint: Pulmonary Follow Up (Severe pneumonia with complicated parapneumonic effusion)
Subjective:
Lysis placed yesterday wtih chest pain, repeat CXR showing no changes
No new complaints today, remains stable on RA
Chest tube with continuous output
Objective Data
Data Reviewed
Vital Signs / I&O / Oxygen:
Vital Signs
Temp Pulse Resp BP Pulse Ox
98.4 F 94 18 115/65 94
02/25/25 03:27 02/25/25 08:00 02/25/25 02:00 02/25/25 08:00 02/25/25 07:00
Intake and Output
02/24/25 02/25/25 02/26/25
06:59 06:59 06:59
Intake Total 1370 / 1370 860 / 860
Output Total 2433 / 2433 3955 / 3955 20 / 20
Balance -1063 / -1063 -3095 / -3095 -20 / -20
SaO2 94
Nasal Cannula flow liters per 2
minute
Physical Exam
General: Comfortable and Good Appetite
HEENT: Normocephalic and Sinus Tenderness
Cardiovascular: S1-S2 and Regular Rhythm
Respiratory: Clear, Non-Labored Respirations and Chest Tube
GI: Soft, Non Distended and Non Tender
Neurology: Awake, Alert, Oriented and No Motor Deficits
Skin: Warm, Dry and Good Color
Labs/Micro/Reports
Lab Data
02/25/25 04:40
02/25/25 04:40
Microbiology
02/20/25 17:30 Pleural Fluid Fungal Smear - Final
No yeast or fungal elements seen.
02/20/25 17:30 Pleural Fluid Fungal Culture - Preliminary
Culture in progress.
Positive cultures are reported as soon as detected.
Final report to follow in four to five weeks.
02/19/25 11:51 Blood/Venous Blood Culture - Final
No Growth - Final Report
02/19/25 11:52 Blood/Venous Blood Culture - Final
No Growth - Final Report
02/20/25 17:30 Pleural Fluid Body Fluid Culture - Final
No Growth After 72 Hours
02/20/25 17:30 Pleural Fluid Gram Stain - Final
02/21/25 13:37 Sputum Respiratory Culture - Final
April albicans
02/21/25 13:37 Sputum Gram Stain - Final
[2025-02-25] MEDS: WELLBUTRIN XL (24 hour extended release) 300 MG PO (09:51)
[2025-02-25] MEDS: MIRALAX 17 GRAMS PO (09:51)
[2025-02-25] MEDS: FOLVITE 1 MG PO (09:51)
[2025-02-25] MEDS: COLACE 100 MG PO ×2 (09:51→20:26)
[2025-02-25] MEDS: NSS (PRESERVATIVE FREE) 10 ML IV (09:51)
[2025-02-25] MEDS: SENOKOT 8.6 MG PO ×2 (09:51→20:26)
[2025-02-25] MEDS: PROTONIX IV 40 MG IV (09:51)
[2025-02-25] MEDS: LEXAPRO 20 MG PO (09:52)
[2025-02-25] MEDS: NORVASC 10 MG PO (09:52)
[2025-02-25] MEDS: OCEAN, SALINE MIST NASAL ×4 (09:57→21:35)
--- NOTE | 2025-02-25 11:13 | PTCARENOTE ---
Addendum entered by Kati Dowell 02/25/25 12:00:
Returned from CT. Chest tube placed back to suction.
Original Note:
Order received for pt to be off suction for CT scan. To CT via stretcher.
[2025-02-25] MEDS: CYANOCOBALAMIN 1000 MCG IM (12:07)
--- NOTE | 2025-02-25 14:01 | W.PN.ONC ---
Today's Communication / Plan
-
No evidence for hemolytic transfusion reaction
continue B12 and folate supplementation
Suspect anemia will improve w/ repletion of B12/folate, cessation of epistaxis, and recovery from necrotizing pneumonia
Outpatient hematology f/u if CBC abnormalities persist
Will sign off, please call [facility] questions
Impression
Impression
54yo M presented with SOB, myalgias, arthralgias and found to have a acute hypoxic respiratory failure, RLL necrotizing pneumonia
acute Anemia s/p 1U prbc 02/19/2025
heme positive/dark stool in the setting of significant epistaxis
right flank pain
h/o alcohol abuse, sober x1 year
low folate, low B12
Plan
Plan
No evidence for hemolytic transfusion reaction
continue B12 and folate supplementation
Suspect anemia will improve w/ repletion of B12/folate, cessation of epistaxis, and recovery from necrotizing pneumonia
Outpatient hematology f/u if CBC abnormalities persist
Will sign off, please call [facility] questions
Subjective/Objective
Subjective/Objective
no new issues
Vital Signs:
Vital Signs
Temp Pulse Resp BP Pulse Ox
98.3 F 101 22 128/81 94
02/25/25 07:15 02/25/25 13:00 02/25/25 13:00 02/25/25 13:00 02/25/25 13:36
Lab Results:
Laboratory Data
WBC 10.9 10^3/uL (4.8-10.8) H 02/25/25 04:40
Hgb 8.3 g/dL (13.0-18.0) L 02/25/25 04:40
Plt Count 543 10^3/uL (130-400) H 02/25/25 04:40
eGFR > 60.00 02/25/25 04:40
Orders
Orders
Orders From Last 24 Hours
02/25/25 10:00
Cyanocobalamin 1,000 mcg IM DAILY
--- NOTE | 2025-02-25 14:13 | W.PN.ID1 ---
Date of Service
Date of Service: February 25, 2025
Today's Communication
Continue antibiotics.
Assessment / Plan
Right-sided pneumonia
Suspected pulmonary necrosis (based on CT read)
Leukocytosis
Fever
Anxiety/depression
Hypertension
Alcohol abuse
Recommendations:
Leukocytosis overall improved and stable today.
Sputum culture unrevealing thus far, although poor quality specimens consisting mostly of spit. April noted, but sample of poor quality
Continue with empiric Zosyn.
Monitor chest tube output.
Follow pending cultures.
Follow white count and temperature curve.
����������������������������������������������������������
Chief Complaint
-: Pneumonia
Subjective / Review of Systems
Review of Systems: No Fever, No Chills, Cough and No Sputum Production
Vital Signs / Physical Exam
Vital Signs
Vital Signs
Temp Pulse Resp BP Pulse Ox
98.3 F 101 22 128/81 94
02/25/25 07:15 02/25/25 13:00 02/25/25 13:00 02/25/25 13:00 02/25/25 13:36
Physical Exam
Constitutional: No Acute Distress, Comfortable and Non-toxic
Eyes: Sclera Anicteric
Cardiovascular: Regular Rate and S1/S2; Negative S3/S4
Pulmonary: Non Labored and Other (Right chest tube in place with serous drainage)
Gastrointestinal: Soft, Non Tender and Non Distended
Skin: Warm and Dry; Negative Rash or Jaundice
Neurological: Awake and Alert
Psychological: Calm
Objective Data
Lab Data
Lab Results
02/25/25 04:40
02/25/25 04:40
Estimated Creat Clear > 125 ml/min 02/25/25 04:40
Lactic Acid 1.3 mmol/L (0.7-2.0) 02/19/25 11:23
Total Bilirubin 0.4 mg/dl (0.2-1.3) 02/20/25 11:27
AST 12 U/L (17-59) L 02/20/25 11:27
ALT 13 U/L (0-50) 02/20/25 11:27
Alkaline Phosphatase 81 U/L (38-126) 02/20/25 11:27
Most recent labs reviewed.
Micro Results:
02/20/25 17:30 Fungal Smear - Final
Pleural Fluid No yeast or fungal elements seen.
Fungal Culture - Preliminary
Culture in progress.
Positive cultures are reported as soon as detected.
Final report to follow in four to five weeks.
02/19/25 11:51 Blood Culture - Final
Blood/Venous No Growth - Final Report
02/19/25 11:52 Blood Culture - Final
Blood/Venous No Growth - Final Report
02/20/25 17:30 Body Fluid Culture - Final
Pleural Fluid No Growth After 72 Hours
Gram Stain - Final
02/21/25 13:37 Respiratory Culture - Final
Sputum April albicans
Gram Stain - Final
02/20/25 07:41 Nasal Screen MRSA (PCR) - Final
Nose MRSA not detected - performed by PCR methodology.
02/19/25 11:23 Influenza Types A & B (CJ) - Final
Nasal Swab Negative for Influenza A & B, NAAT
Negative results must be combined with clinical observations
and patient history.
Nucleic Acid Amplification test (NAAT)performed on the
[employer] platform.
Imaging:
02/24/2025 CXR (portable): Stable appearance of the rounded pleural-based density projecting over the lateral right midlung and loculated right-sided pleural effusion. Please see full dictation for additional detail.
02/19/2025 CT chest/abdomen/pelvis: Moderate right pleural effusion. Hypodense pulmonary consolidation/pneumonia in the posterior right lower lobe. Concern for the possibility of parenchymal necrosis is noted. Borderline mediastinal adenopathy.
Mild hepatomegaly. Mild fatty infiltration. Mild diverticulosis without evidence for diverticulitis. Please see full dictation for additional detail.
--- NOTE | 2025-02-25 14:59 | PTCARENOTE ---
Pt downgraded to med surg. Report to receiving RN. Order received for pt to travel off suction. Belongings collected from room. Transferred to 2137 via stretcher.
--- NOTE | 2025-02-25 15:16 | CM ---
Patient with Dx RLL necrotizing pneumonia with complicated parapneumonic effusion -Chest Tube placed on 02/21, pleural effusion, sepsis, anemia. Chest tube. Plan CT Chest. PT Eval; recommendation TBD.
Spoke with patient's sister Megan Barnes; provided update about patient's progress with PT and that PT recommendation is pending. She is hoping patient will be able to return home with their mother and brother, possibly with HH as needed.
Plan continue to follow patient's progress with PT.
--- NOTE | 2025-02-25 15:22 | PTCARENOTE ---
prn dilaudid given at bedside prior to the intrapleural TPA. pt with R sided chest tube with -20 wall suction. clamp order post TPA until 1715. pt aaox3, min assist in the room on 2L when arriving from IMU. see MAR for proper documentation.
--- NOTE | 2025-02-25 15:35 | PN.IRAD.UPD ---
Update Note - IRAD
- -
Instilled 50ml of TPA and 50ml of Dornase into right sided chest tube and clamped the tube at 15:15. Nurse was informed to unclamp tube in 2 hours at 17:15.
Fidel Frost RT(R)()
[2025-02-25] MEDS: LOVENOX 40 MG SC (17:20)
[2025-02-25] MEDS: PROTONIX 40 MG PO (20:26)
[2025-02-25] MEDS: SINEQUAN 100 MG PO (20:27)
[2025-02-26] MEDS: DILAUDID 1 MG IV ×4 (04:27→20:16)
--- NOTE | 2025-02-26 06:15 | W.PN.GI.CBS2 ---
Today's Communication / Plan
-
Please see assessment and plan for details.
Assessment / Plan
-
1. Anemia: Likely multifactorial, with melena likely from significant epistaxis, received 2 units this admission, now stable without any signs of gross bleeding. There could be some component of anemia of chronic disease given his severe pneumonia
with likely necrosis and parapneumonic effusion. Per hematology no signs of hemolysis. Again, without signs of significant active bleeding now we will hold on endoscopy and colonoscopy, will likely plan as outpatient when recovers from
pneumonia/effusion.
2. Constipation: Did have bowel movement yesterday after suppository, continue MiraLAX for now.
Will follow-up in the office in 1 to 2 months, plan outpatient EGD and colonoscopy. We will sign off for now, please call back with any further questions.
Subjective
Subjective
Date of Service: February 26, 2025
Patient feeling okay, no abdominal pain, nausea or vomiting, did have bowel movement yesterday, no gross bleeding. Shortness of breath is improved.
Objective
Data Reviewed
Laboratory Data:
Laboratory Results
Magnesium 2.1 mg/dl (1.6-2.3) 02/24/25 04:45
Total Bilirubin 0.4 mg/dl (0.2-1.3) 02/20/25 11:27
AST 12 U/L (17-59) L 02/20/25 11:27
ALT 13 U/L (0-50) 02/20/25 11:27
Alkaline Phosphatase 81 U/L (38-126) 02/20/25 11:27
Lipase 20 U/L (23-300) L 02/19/25 11:23
Vital Signs and I&O:
Vital Signs
Temp Pulse Resp BP Pulse Ox
98.9 F 97 17 136/77 94
02/25/25 23:23 02/25/25 23:23 02/25/25 23:23 02/25/25 23:23 02/26/25 02:12
I&O
02/24/25 02/25/25 02/26/25
06:59 06:59 06:59
Intake Total 1370 / 1370 860 / 860 800 / 800
Output Total 2433 / 2433 3955 / 3955 2295 / 2295
Balance -1063 / -1063 -3095 / -3095 -1495 / -1495
Physical Exam
Physical Exam
General: NAD
Abdomen: normal bowel sounds, soft, no tenderness, no masses or bruits, no ascites
[2025-02-26 06:27] LABS: % Basophils 0.6 % (0-2); % Eosinophils 4.9 % (0-6); % Immature Granulocytes 1.5 % (0-0.5); % Lymphocytes 8.3 % (20.5-51.1); % Monocytes 7.5 % (1.7-9.3); % Neutrophils 77.2 % (42.2-75.2); Absolute Basophils 0.1 10^3/uL (0-0.2); Absolute Eosinophils 0.5 10^3/uL (0-0.7); Absolute Immature Granulocytes 0.2 10^3/uL (0-0.05); Absolute Lymphocytes 0.9 10^3/uL (1.2-3.4); Absolute Monocytes 0.8 10^3/uL (0.1-0.6); Absolute Neutrophils 8.1 10^3/uL (1.4-6.5); Hematocrit 24.8 % (39.0-52.0); Mean Corp Hgb Conc. 32.3 g/dL (33.0-37.0); Mean Corpuscular Hgb 24.7 pg (27.0-31.0); Mean Corpuscular Volume 76.5 fL (80.0-94.0); Mean Platelet Volume 9.4 fL (7.4-10.4); Nucleated Red Blood Cells % 0 % (-); Platelet Count 552 10^3/uL (130-400); Red Blood Cell Count 3.24 10^6/uL (4.70-6.10); Red Cell Dist. Width 16.7 % (11.5-14.5); White Blood Cell Count 10.4 10^3/uL (4.8-10.8)
[2025-02-26] MEDS: ZOSYN 50 IV ×2 (06:33→11:22)
[2025-02-26 06:37] LABS: Blood Urea Nitrogen 6 mg/dl (9-20); Calcium 7.9 mg/dl (8.4-10.2); Carbon Dioxide 27 mmol/L (22-30); Chloride 105 mmol/L (98-107); Estimated Creatinine Clearance > 125 ml/min; Glucose 95 mg/dl (70-99); Potassium 4.1 mmol/L (3.5-5.1); Sodium 137 mmol/L (135-145); eGFR > 60.00
[2025-02-26 07:05] VITALS: BP 128/74
[2025-02-26] MEDS: MIRALAX 17 GRAMS PO (08:41)
[2025-02-26] MEDS: FOLVITE 1 MG PO (08:41)
[2025-02-26] MEDS: LEXAPRO 20 MG PO (08:41)
[2025-02-26] MEDS: COLACE 100 MG PO ×2 (08:41→20:15)
[2025-02-26] MEDS: WELLBUTRIN XL (24 hour extended release) 300 MG PO (08:41)
[2025-02-26] MEDS: NORVASC 10 MG PO (08:41)
[2025-02-26] MEDS: SENOKOT 8.6 MG PO ×2 (08:41→20:16)
[2025-02-26] MEDS: PROTONIX 40 MG PO ×2 (08:41→20:15)
[2025-02-26] MEDS: OCEAN, SALINE MIST 2 SPRAYS NASAL ×3 (08:42→18:24)
[2025-02-26] MEDS: CYANOCOBALAMIN 1000 MCG IM (08:42)
[2025-02-26 09:30] VITALS: BP 121/76; PULSE 97; O2SAT 92
--- NOTE | 2025-02-26 11:02 | W.PN.HOSP.TC ---
Today's Communication/Plan
-
Await pulmonary input
Assessment / Plan
Assessment / Plan
Gen-AAOx3, NAD
HEENT-NC, AT, anicteric, clear oral mm
Neck-supple
CV-reg, no M, +S1/S2
Lungs-clear B/L, decreased breath sounds right side
Abd-soft, NT, ND
Ext-no edema
Musculoskeletal-no cyanosis, clubbing
Skin-warm and dry
Neuro-grossly non-focal
Psych-calm, cooperative
Acute hypoxic respiratory failure - secondary to right sided necrotizing pneumonia. Initially required mid flow oxygen up to 12 L, oxygenation much improved. Currently on room air.
RLL necrotizing pneumonia with complicated parapneumonic effusion -Chest Tube placed on 02/21/25.
Moderate Right Pleural Effusion
-IR consult for pleural drainage --> chest tube placed on 02/21/25 -- since minimal pleural fluid drainage, and loculated collection persisted, started intrapleural tPA/DNase x 3 doses (see Pleural Drainage note from IR from 02/23/25)
-CT Chest after 3 doses of tPA DNase -- and if loculated effusions persist, patient might need revision of chest tube versus placement of a second chest tube.
Repeat CT chest February 25 shows moderate loculated right pleural effusion improved. New small left pleural effusion. Moderate right lower lobe consolidation with associated hypodense areas and air-fluid levels possibly necrosis or infection. Mild
left lower lobe consolidation, atelectasis or pneumonia. Bilateral upper lobe groundglass opacities. Bilateral atelectasis versus scarring. Small pericardial effusion. Mild mediastinal lymphadenopathy.
Chest tube output significantly less over past 24 hours, 20 cc. Pulmonary to decide if tube can be removed.
Sepsis Secondary to right-sided community-acquired pneumonia -blood cultures negative. Sepsis resolved. Leukocytosis improved. COVID and influenza negative. Remains on IV Zosyn. April albicans and respiratory culture likely contaminant. Last
fever was February 23.
Acute anemia -microcytic. Heme positive stools in the emergency room. ENT input noted, unlikely to be acute anemia due to epistaxis. Has required 2 units of blood transfused this admission.
Suspect anemia due to ongoing GI blood loss. GI service reconsulted, recommendation is for outpatient EGD and colonoscopy. Hemoglobin stable at 8.0 this morning. Last episode of epistaxis was 2 days ago.
Did have melena prior to admission. Had a brown bowel movement 02/24.
Not iron deficient based on blood work.
Right-sided epistaxis -Patient reported that he has been having nose bleeds from the right nostril for the last few weeks.
ENT cauterized nosebleed on 02/23/25
Serum folate low-- B12 in lowest quartile--MMA level ordered--Folic acid started
Constipation on CT Imaging -bowels are moving.
Mild Diverticulosis
Mobile intraperitoneal cecum situated in the left upper quadrant
Reactive thrombocytosis - RESOLVED
Hypokalemia - RESOLVED
Replacements ordered
Magnesium normal
Hyponatremia - RESOLVED
Anxiety
Essential Hypertension
- continue Norvasc
GERD - PPI
Alcohol use disorder
Obesity due to excess calories
Full code
Dispo -anticipate discharge home on IV antibiotics, discussed with ID service. Can discharge once chest tube has been removed.
Anticipated Discharge: Within 24 hours
Subjective/Interval History
-
Date of Service: February 26, 2025
Patient seen and examined. Feeling much better. No complaints.
Objective Data
-
Labs:
Laboratory Results
02/26/25
05:18
WBC 10.4
Hgb 8.0 L
Hct 24.8 L
Plt Count 552 H
Sodium 137
Potassium 4.1
Chloride 105
Carbon Dioxide 27
BUN 6 L
Creatinine 0.5 L
Glucose 95
Calcium 7.9 L
Vital Signs:
Vital Signs
Temp Pulse Resp BP Pulse Ox
98.2 F 93 16 128/74 90
06/11/25 07:05 02/26/25 07:05 02/26/25 07:05 02/26/25 07:05 02/26/25 07:05
I&O
02/25/25 02/26/25 02/27/25
06:59 06:59 06:59
Intake Total 860 / 860 800 / 800
Output Total 3955 / 3955 2295 / 2295
Balance -3095 / -3095 -1495 / -1495
Review of Systems
-
History Source: Patient
All other systems: Reviewed and negative
--- NOTE | 2025-02-26 11:10 | W.PN.PUL3 ---
Today's Communication / Plan
-
CXR showing ongoing rounded loculation, will d/w IR in terms of repositioning tube to area
Lytics attempted x 3, likely no longer beneficial--minimal output last 24 hours
I discussed case with patient and at bedside, in agreement
Assessment
-
54-year-old man with past medical history noted. Admitted with 2-3 day history of shortness of breath, pleuritic type chest pain, fevers.. Generalized malaise. Black stools. Found to have right lower lobe pneumonia possibly necrotizing with
associated pleural effusion
Severe pneumonia with right complicated parapneumonic effusion
S/p thoracentesis 02/20/2025: Negative Gram stain-exudative.
Acute respiratory failure secondary to pneumonia-[address] chest: Showed right lower lobe possible necrotizing pneumonia with associated pleural effusion.
Sepsis due to above: Leukocytosis/fever/tachypnea.
Pleuritic type chest pain
Acute blood loss anemia-reports black stools.
Hypokalemia
Hyponatremia
Conditions present prior admission:
Alcohol abuse
Anxiety
Hypertension
GERD
Plan:
Currently on RA, stable no complaints
Chest tube remains to suction
Clinical picture consistent with bacterial pneumonia/So far no evidence for pulmonary abscess: Possibly complicated aspiration pneumonia.
CT of the chest: Showed significant right lower lobe infiltrate with possible necrosis. Associated moderate pleural effusion. Borderline mediastinal adenopathy.
Severe Pneumonia with complicated parapneumonic effusion versus empyem
Status post right chest tube placement 02/20/2025 total output 1330 cc
Pleural fluid studies show significantly elevated LDH
Minimal pleural fluid drainage over last 24 hours, loculated collection persists on the chest x-ray
Discussed with IR service s/p intrapleural tPA/DNase x 3 doses (last dose 02/25)
Output overnight 20mL
Discussed with IR today regarding repositioning of tube at rounded loculation
CXR performed today showing persistence
Continue broad-spectrum antibiotic per ID service
Sputum culture if able-april + 02/21
Pleural cultures negative 02/20
MRSA screening negative
Blood culture negative to date so far
Influenza negative
COVID-negative
Pleural studies:
Pleural fluid exudative, pH 7.29/white blood cell 3041/88% polymorphs/glucose 69/total protein 3.6/LDH 1219--possible parapneumonic
Negative amylase and triglycerides.
Final cultures and cytology are negative
Chest pain: Likely pleuritic-improved post-thoracentesis, chest tube may cause pain as well
PRN pain control
Analgesia per primary team
Former smoker without evidence of COPD.
Secretion clearance interventions
DuoNebs as needed
Acapella device
Per patient he has not drank alcohol in a year.
Aspiration precautions
Echocardiogram showed normal LVEF. Mild . No RV dysfunction or regional motion wall abnormalities
No CHF findings
Hypokalemia being repleted- Improved. Defer to primary team.
Hyponatremia likely due to severe pneumonia- Improving.
Discussed plan of care with patient and nurse at bedside
Will follow
Diagnostic Data
CXR 02/24/25- There is stable appearance of the rounded pleural-based density projecting over the lateral right midlung and loculated right-sided pleural effusion.
02/22/25- Stable right-sided chest tube. Tiny right pleural effusion. New. Stable pleural-based rounded density in the lateral mid right lung field consistent with loculated pleural fluid on prior chest CT examination. Right-sided decreased lung
volume. Progressed. Cardiomegaly. Stable
CT CAP 02/19/25- Moderate right pleural effusion. Hypodense pulmonary consolidation/pneumonia in the posterior right lower lobe, raising possibility of parenchymal necrosis. Borderline mediastinal adenopathy.
Fat-containing hernia esophageal hiatus measuring approximately 6 cm. Mild hepatomegaly. Mild fatty infiltration and a few tiny cysts suggested. Mild diverticulosis. No evidence of acute diverticulitis. Mobile intraperitoneal cecum situated in the
left upper quadrant. Constipation with mild to moderate fecal burden in the cecum and ascending colon. The appendix is not identified with certainty. No secondary signs of appendicitis.
ECHO 02/20/25- Left ventricular ejection fraction is 65-70%. Normal regional wall motion. Normal right ventricular size and function. Mild aortic stenosis; peak/mean gradients 29/16 mmHg, calculated DUNG 1.6 cm2. No prior study available for
comparison.
-----
Total time spent today was 51 minutes for this encounter. Time includes reviewing laboratory test/imaging results, reviewing pertinent medical records, obtaining and reviewing medical history, performing an appropriate exam, ordering medications,
tests and procedures. Time also includes documentation of this encounter, coordinating patient care and communicating with other healthcare professionals. Total time does not include separately billed tests performed on this date of service.
Subjective Data
-
Date of Service:
Date of Service: February 26, 2025
Chief Complaint: Pulmonary Follow Up (Severe pneumonia with complicated parapneumonic effusion)
Subjective:
No new complaints, remains stable on RA
CT output minimal overnight
Objective Data
Data Reviewed
Vital Signs / I&O / Oxygen:
Vital Signs
Temp Pulse Resp BP Pulse Ox
98.2 F 93 16 128/74 90
02/26/25 07:05 02/26/25 07:05 02/26/25 07:05 02/26/25 07:05 02/26/25 07:05
Intake and Output
02/25/25 02/26/25 02/27/25
06:59 06:59 06:59
Intake Total 860 / 860 800 / 800
Output Total 3955 / 3955 2295 / 2295
Balance -3095 / -3095 -1495 / -1495
SaO2 90
Nasal Cannula flow liters per 2
minute
Physical Exam
General: Comfortable and Good Appetite
HEENT: Normocephalic and Sinus Tenderness
Cardiovascular: S1-S2 and Regular Rhythm
Respiratory: Clear, Non-Labored Respirations and Chest Tube
GI: Soft, Non Distended and Non Tender
Neurology: Awake, Alert, Oriented and No Motor Deficits
Skin: Warm, Dry and Good Color
Labs/Micro/Reports
Lab Data
02/26/25 05:18
02/26/25 05:18
Microbiology
02/20/25 17:30 Pleural Fluid Fungal Smear - Final
No yeast or fungal elements seen.
02/20/25 17:30 Pleural Fluid Fungal Culture - Preliminary
Culture in progress.
Positive cultures are reported as soon as detected.
Final report to follow in four to five weeks.
02/19/25 11:51 Blood/Venous Blood Culture - Final
No Growth - Final Report
02/19/25 11:52 Blood/Venous Blood Culture - Final
No Growth - Final Report
02/20/25 17:30 Pleural Fluid Body Fluid Culture - Final
No Growth After 72 Hours
02/20/25 17:30 Pleural Fluid Gram Stain - Final
02/21/25 13:37 Sputum Respiratory Culture - Final
April albicans
02/21/25 13:37 Sputum Gram Stain - Final
--- NOTE | 2025-02-26 11:54 | W.PN.ID1 ---
Date of Service
Date of Service: February 26, 2025
Today's Communication
Transition to ceftriaxone.
Assessment / Plan
Right-sided pneumonia
Suspected pulmonary necrosis (based on CT read)
Leukocytosis
Fever
Anxiety/depression
Hypertension
Alcohol abuse
Recommendations:
Day #8 Zosyn
Leukocytosis overall improved and stable today.
Sputum culture unrevealing thus far, although poor quality specimens consisting mostly of spit. April noted, but sample of poor quality
Transition to ceftriaxone 2 g IV every 24 hours. Would continue with an additional 2 weeks of antibiotic therapy, with transition to oral therapy thereafter.
Monitor chest tube output.
Follow white count and temperature curve.
����������������������������������������������������������
Chief Complaint
-: Pneumonia
Subjective / Review of Systems
Patient seen and examined. Reports feeling improved. Notes mild chest discomfort with cough.
Review of Systems: No Fever and No Chills
Vital Signs / Physical Exam
Vital Signs
Vital Signs
Temp Pulse Resp BP Pulse Ox
98.2 F 93 16 128/74 90
02/26/25 07:05 02/26/25 07:05 02/26/25 07:05 02/26/25 07:05 02/26/25 07:05
Physical Exam
Constitutional: No Acute Distress, Comfortable and Non-toxic
Eyes: Sclera Anicteric
Cardiovascular: Regular Rate and S1/S2; Negative S3/S4
Pulmonary: Non Labored and Other (Right chest tube in place with serous drainage)
Gastrointestinal: Soft, Non Tender and Non Distended
Skin: Warm and Dry; Negative Rash or Jaundice
Neurological: Awake and Alert
Psychological: Calm
Objective Data
Lab Data
Lab Results
02/26/25 05:18
02/26/25 05:18
Estimated Creat Clear > 125 ml/min 06/11/25 05:18
Lactic Acid 1.3 mmol/L (0.7-2.0) 02/19/25 11:23
Total Bilirubin 0.4 mg/dl (0.2-1.3) 02/20/25 11:27
AST 12 U/L (17-59) L 02/20/25 11:27
ALT 13 U/L (0-50) 02/20/25 11:27
Alkaline Phosphatase 81 U/L (38-126) 02/20/25 11:27
Most recent labs reviewed.
Micro Results:
02/20/25 17:30 Fungal Smear - Final
Pleural Fluid No yeast or fungal elements seen.
Fungal Culture - Preliminary
Culture in progress.
Positive cultures are reported as soon as detected.
Final report to follow in four to five weeks.
02/19/25 11:51 Blood Culture - Final
Blood/Venous No Growth - Final Report
02/19/25 11:52 Blood Culture - Final
Blood/Venous No Growth - Final Report
02/20/25 17:30 Body Fluid Culture - Final
Pleural Fluid No Growth After 72 Hours
Gram Stain - Final
02/21/25 13:37 Respiratory Culture - Final
Sputum April albicans
Gram Stain - Final
02/20/25 07:41 Nasal Screen MRSA (PCR) - Final
Nose MRSA not detected - performed by PCR methodology.
02/19/25 11:23 Influenza Types A & B (CJ) - Final
Nasal Swab Negative for Influenza A & B, NAAT
Negative results must be combined with clinical observations
and patient history.
Nucleic Acid Amplification test (NAAT)performed on the
[employer] platform.
Imaging:
02/24/2025 CXR (portable): Stable appearance of the rounded pleural-based density projecting over the lateral right midlung and loculated right-sided pleural effusion. Please see full dictation for additional detail.
02/19/2025 CT chest/abdomen/pelvis: Moderate right pleural effusion. Hypodense pulmonary consolidation/pneumonia in the posterior right lower lobe. Concern for the possibility of parenchymal necrosis is noted. Borderline mediastinal adenopathy.
Mild hepatomegaly. Mild fatty infiltration. Mild diverticulosis without evidence for diverticulitis. Please see full dictation for additional detail.
--- NOTE | 2025-02-26 13:09 | CM ---
Reviewed the chart notes and spoke with the patient at the bedside. Patient continues with chest tube. Per ID note, 'ceftriaxone 2 g IV every 24 hours. Would continue with an additional 2 weeks of antibiotic therapy, with transition to oral
therapy thereafter.' CM continues to be available to patient/family and is monitoring medical plan for needs at discharge.
Plan: Discharge to home with IV abx when medically stable.
[2025-02-26 13:31] LABS: Methylmalonic Acid 0.17 umol/L (0.00-0.40)
[2025-02-26] MEDS: ROCEPHIN 2000 MG IV (14:10)
[2025-02-26] MEDS: STERILE WATER FOR INJECTION 20 ML IV (14:10)
[2025-02-26] MEDS: LOVENOX 40 MG SC (18:23)
[2025-02-26] MEDS: SINEQUAN 100 MG PO (20:15)
[2025-02-26] MEDS: OCEAN, SALINE MIST NASAL (20:59)
[2025-02-26 22:49] VITALS: BP 136/74
[2025-02-27] VITALS (10 sets, daily range): BP systolic 88–129; BP diastolic 71–78; PULSE 86; O2SAT 96
[2025-02-27] MEDS: DILAUDID 1 MG IV ×5 (00:02→22:11)
[2025-02-27] MEDS: MELATONIN 10 MG PO (00:07)
[2025-02-27] MEDS: CYANOCOBALAMIN 1000 MCG IM (07:53)
[2025-02-27] MEDS: SENOKOT 8.6 MG PO ×2 (07:54→20:04)
[2025-02-27] MEDS: PROTONIX 40 MG PO ×2 (07:54→20:04)
[2025-02-27] MEDS: WELLBUTRIN XL (24 hour extended release) 300 MG PO (07:54)
[2025-02-27] MEDS: FOLVITE 1 MG PO (07:54)
[2025-02-27] MEDS: COLACE 100 MG PO ×2 (07:54→20:05)
[2025-02-27] MEDS: LEXAPRO 20 MG PO (07:55)
[2025-02-27] MEDS: NORVASC 10 MG PO (07:55)
[2025-02-27] MEDS: OCEAN, SALINE MIST NASAL ×2 (08:00→22:47)
[2025-02-27] MEDS: MIRALAX PO ×3 (08:01→11:31)
--- NOTE | 2025-02-27 11:16 | W.PN.PUL3 ---
Today's Communication / Plan
-
No changes ON, minimal output from chest tube
Remains stable on RA
IR consult placed for tube repositioning, maintain to suction when completed
Check CXR tomorrow
Assessment
-
54-year-old man with past medical history noted. Admitted with 2-3 day history of shortness of breath, pleuritic type chest pain, fevers.. Generalized malaise. Black stools. Found to have right lower lobe pneumonia possibly necrotizing with
associated pleural effusion
Severe pneumonia with right complicated parapneumonic effusion
S/p thoracentesis 02/20/2025: Negative Gram stain-exudative.
Acute respiratory failure secondary to pneumonia-[address] chest: Showed right lower lobe possible necrotizing pneumonia with associated pleural effusion.
Sepsis due to above: Leukocytosis/fever/tachypnea.
Pleuritic type chest pain
Acute blood loss anemia-reports black stools.
Hypokalemia
Hyponatremia
Conditions present prior admission:
Alcohol abuse
Anxiety
Hypertension
GERD
Plan:
Currently on RA, stable no complaints
Chest tube remains to suction
Clinical picture consistent with bacterial pneumonia/So far no evidence for pulmonary abscess: Possibly complicated aspiration pneumonia.
CT of the chest: Showed significant right lower lobe infiltrate with possible necrosis. Associated moderate pleural effusion. Borderline mediastinal adenopathy.
Severe Pneumonia with complicated parapneumonic effusion versus empyem
Status post right chest tube placement 02/20/2025 total output 1330 cc
Pleural fluid studies show significantly elevated LDH
Minimal pleural fluid drainage over last 24 hours, loculated collection persists on the chest x-ray
Discussed with IR service s/p intrapleural tPA/DNase x 3 doses (last dose 02/25)
Output overnight 20mL
Discussed with IR today regarding repositioning of tube at rounded loculation
CXR performed today showing persistence
Consult placed
Continue broad-spectrum antibiotic per ID service
Sputum culture if able-patricia + 02/21
Pleural cultures negative 02/20
MRSA screening negative
Blood culture negative to date so far
Influenza negative
COVID-negative
Pleural studies:
Pleural fluid exudative, pH 7.29/white blood cell 3041/88% polymorphs/glucose 69/total protein 3.6/LDH 1219--possible parapneumonic
Negative amylase and triglycerides.
Final cultures and cytology are negative
Chest pain: Likely pleuritic-improved post-thoracentesis, chest tube may cause pain as well
PRN pain control
Analgesia per primary team
Former smoker without evidence of COPD.
Secretion clearance interventions
DuoNebs as needed
Acapella device
Per patient he has not drank alcohol in a year.
Aspiration precautions
Echocardiogram showed normal LVEF. Mild . No RV dysfunction or regional motion wall abnormalities
No CHF findings
Hypokalemia being repleted- Improved. Defer to primary team.
Hyponatremia likely due to severe pneumonia- Improving.
Discussed plan of care with patient and nurse at bedside
Will follow
Diagnostic Data
CXR 02/24/25- There is stable appearance of the rounded pleural-based density projecting over the lateral right midlung and loculated right-sided pleural effusion.
02/22/25- Stable right-sided chest tube. Tiny right pleural effusion. New. Stable pleural-based rounded density in the lateral mid right lung field consistent with loculated pleural fluid on prior chest CT examination. Right-sided decreased lung
volume. Progressed. Cardiomegaly. Stable
CT CAP 02/19/25- Moderate right pleural effusion. Hypodense pulmonary consolidation/pneumonia in the posterior right lower lobe, raising possibility of parenchymal necrosis. Borderline mediastinal adenopathy.
Fat-containing hernia esophageal hiatus measuring approximately 6 cm. Mild hepatomegaly. Mild fatty infiltration and a few tiny cysts suggested. Mild diverticulosis. No evidence of acute diverticulitis. Mobile intraperitoneal cecum situated in the
left upper quadrant. Constipation with mild to moderate fecal burden in the cecum and ascending colon. The appendix is not identified with certainty. No secondary signs of appendicitis.
ECHO 02/20/25- Left ventricular ejection fraction is 65-70%. Normal regional wall motion. Normal right ventricular size and function. Mild aortic stenosis; peak/mean gradients 29/16 mmHg, calculated DUNG 1.6 cm2. No prior study available for
comparison.
-----
Total time spent today was 45 minutes for this encounter. Time includes reviewing laboratory test/imaging results, reviewing pertinent medical records, obtaining and reviewing medical history, performing an appropriate exam, ordering medications,
tests and procedures. Time also includes documentation of this encounter, coordinating patient care and communicating with other healthcare professionals. Total time does not include separately billed tests performed on this date of service.
Subjective Data
-
Date of Service:
Date of Service: February 27, 2025
Chief Complaint: Pulmonary Follow Up (Severe pneumonia with complicated parapneumonic effusion)
Subjective:
No new complaints, remains stable on RA
Objective Data
Data Reviewed
Vital Signs / I&O / Oxygen:
Vital Signs
Temp Pulse Resp BP Pulse Ox
98 F 88 16 129/71 96
02/27/25 07:10 02/27/25 07:55 02/27/25 07:10 02/27/25 07:55 02/27/25 09:12
Intake and Output
02/26/25 02/27/25 02/28/25
06:59 06:59 06:59
Intake Total 800 / 800 1200 / 1200
Output Total 2295 / 2295 850 / 850
Balance -1495 / -1495 350 / 350
SaO2 96
Nasal Cannula flow liters per 2
minute
Physical Exam
General: Comfortable and Good Appetite
HEENT: Normocephalic and Sinus Tenderness
Cardiovascular: S1-S2 and Regular Rhythm
Respiratory: Clear, Non-Labored Respirations and Chest Tube
GI: Soft, Non Distended and Non Tender
Neurology: Awake, Alert, Oriented and No Motor Deficits
Skin: Warm, Dry and Good Color
Labs/Micro/Reports
Lab Data
02/26/25 05:18
02/26/25 05:18
Microbiology
02/20/25 17:30 Pleural Fluid Fungal Smear - Final
No yeast or fungal elements seen.
02/20/25 17:30 Pleural Fluid Fungal Culture - Preliminary
Culture in progress.
Positive cultures are reported as soon as detected.
Final report to follow in four to five weeks.
02/19/25 11:51 Blood/Venous Blood Culture - Final
No Growth - Final Report
02/19/25 11:52 Blood/Venous Blood Culture - Final
No Growth - Final Report
02/20/25 17:30 Pleural Fluid Body Fluid Culture - Final
No Growth After 72 Hours
02/20/25 17:30 Pleural Fluid Gram Stain - Final
[2025-02-27] MEDS: ROCEPHIN 2000 MG IV (12:45)
[2025-02-27] MEDS: STERILE WATER FOR INJECTION 20 ML IV (12:46)
[2025-02-27] MEDS: OCEAN, SALINE MIST 2 SPRAYS NASAL ×2 (12:47→17:23)
--- NOTE | 2025-02-27 12:51 | W.PN.HOSP.TC ---
Today's Communication/Plan
-
IR consult
Assessment / Plan
Assessment / Plan
Gen-AAOx3, NAD
HEENT-NC, AT, anicteric, clear oral mm
Neck-supple
CV-reg, no M, +S1/S2
Lungs-clear B/L, decreased breath sounds right side
Abd-soft, NT, ND
Ext-no edema
Musculoskeletal-no cyanosis, clubbing
Skin-warm and dry
Neuro-grossly non-focal
Psych-calm, cooperative
Acute hypoxic respiratory failure - secondary to right sided necrotizing pneumonia. Initially required mid flow oxygen up to 12 L, oxygenation much improved. Currently on room air.
RLL necrotizing pneumonia with complicated parapneumonic effusion -Chest Tube placed on 02/21/25.
Moderate Right Pleural Effusion
-IR consult for pleural drainage --> chest tube placed on 02/21/25 -- since minimal pleural fluid drainage, and loculated collection persisted, started intrapleural tPA/DNase x 3 doses (see Pleural Drainage note from IR from 02/23/25)
-CT Chest after 3 doses of tPA DNase -- and if loculated effusions persist, patient might need revision of chest tube versus placement of a second chest tube.
Repeat CT chest February 25 shows moderate loculated right pleural effusion improved. New small left pleural effusion. Moderate right lower lobe consolidation with associated hypodense areas and air-fluid levels possibly necrosis or infection. Mild
left lower lobe consolidation, atelectasis or pneumonia. Bilateral upper lobe groundglass opacities. Bilateral atelectasis versus scarring. Small pericardial effusion. Mild mediastinal lymphadenopathy.
Chest tube output down to 0. Awaiting IR to evaluate this afternoon.
Sepsis Secondary to right-sided community-acquired pneumonia -blood cultures negative. Sepsis resolved. Leukocytosis improved. COVID and influenza negative. Now on IV ceftriaxone per infectious disease.
Acute anemia -microcytic. Heme positive stools in the emergency room. ENT input noted, unlikely to be acute anemia due to epistaxis. Has required 2 units of blood transfused this admission.
Suspect anemia due to ongoing GI blood loss. GI service reconsulted, recommendation is for outpatient EGD and colonoscopy. Hemoglobin stable at 8.0 this morning. Last episode of epistaxis was 2 days ago.
Did have melena prior to admission. Stools in the hospital have been brown.
Not iron deficient based on blood work.
Right-sided epistaxis -Patient reported that he has been having nose bleeds from the right nostril for the last few weeks.
ENT cauterized nosebleed on 02/23/25
Serum folate low--continue folic acid.
B12 in lowest quartile, methylmalonic acid level normal.
Constipation on CT Imaging -bowels are moving.
Mild Diverticulosis
Mobile intraperitoneal cecum situated in the left upper quadrant
Reactive thrombocytosis - RESOLVED
Hypokalemia - RESOLVED
Replacements ordered
Magnesium normal
Hyponatremia - RESOLVED
Anxiety
Essential Hypertension
- continue Norvasc
GERD - PPI
Alcohol use disorder
Obesity due to excess calories
Full code
Dispo -anticipate discharge home on IV antibiotics, discussed with ID service. Can discharge once chest tube has been removed.
Anticipated Discharge: 24 - 48 hours
Subjective/Interval History
-
Date of Service: February 27, 2025
Patient seen and examined, no new complaints.
Objective Data
-
Vital Signs:
Vital Signs
Temp Pulse Resp BP Pulse Ox
98 F 88 16 129/71 96
02/27/25 07:10 02/27/25 07:55 02/27/25 07:10 02/27/25 07:55 02/27/25 09:12
I&O
02/26/25 02/27/25 02/28/25
06:59 06:59 06:59
Intake Total 800 / 800 1200 / 1200
Output Total 2295 / 2295 850 / 850
Balance -1495 / -1495 350 / 350
Review of Systems
-
History Source: Patient
All other systems: Reviewed and negative
--- NOTE | 2025-02-27 15:37 | CM ---
Reviewed the chart notes. The patient is in IR for chest tube repositioning/replacement. Per [facility] the patient has a $8500 [id number] deductible then is covered at 100% for medication/supplies/RN. CM continues to be
available to patient/family and is monitoring medical plan for needs at discharge.
Plan: Discharge to home when medically stable and with IV abx through [facility].
[2025-02-27] MEDS: LOVENOX 40 MG SC (17:23)
--- NOTE | 2025-02-27 17:50 | W.PN.ID1 ---
Date of Service
Date of Service: February 27, 2025
Today's Communication
Continue antibiotics
Assessment / Plan
Right-sided pneumonia
Suspected pulmonary necrosis (based on CT read)
Leukocytosis
Fever
Anxiety/depression
Hypertension
Alcohol abuse
Recommendations:
Ceftriaxone day #2; day #9 antibiotics
Leukocytosis overall improved and stable today.
Sputum culture unrevealing thus far, although poor quality specimens consisting mostly of spit. April noted, but sample of poor quality
Continue with ceftriaxone 2 g IV every 24 hours. Would continue with an additional 2 weeks of antibiotic therapy, with likely transition to oral therapy thereafter.
Monitor chest tube output.
Follow white count and temperature curve.
����������������������������������������������������������
Chief Complaint
-: Pneumonia
Subjective / Review of Systems
Patient seen and examined. Back from IR following placement of new chest tube. Patient otherwise feels well.
Review of Systems: No Fever and No Chills
Vital Signs / Physical Exam
Vital Signs
Vital Signs
Temp Pulse Resp BP Pulse Ox
98.2 F 95 18 123/76 93
02/27/25 16:50 02/27/25 16:50 02/27/25 16:50 02/27/25 16:50 02/27/25 16:50
Physical Exam
Constitutional: No Acute Distress, Comfortable and Non-toxic
Eyes: Sclera Anicteric
Cardiovascular: Regular Rate and S1/S2; Negative S3/S4
Pulmonary: Non Labored and Other (Right chest tube in place with serous drainage)
Gastrointestinal: Soft, Non Tender and Non Distended
Skin: Warm and Dry; Negative Rash or Jaundice
Neurological: Awake and Alert
Psychological: Calm
Objective Data
Lab Data
Lab Results
02/26/25 05:18
02/26/25 05:18
Estimated Creat Clear > 125 ml/min 02/26/25 05:18
Lactic Acid 1.3 mmol/L (0.7-2.0) 02/19/25 11:23
Total Bilirubin 0.4 mg/dl (0.2-1.3) 02/20/25 11:27
AST 12 U/L (17-59) L 02/20/25 11:27
ALT 13 U/L (0-50) 02/20/25 11:27
Alkaline Phosphatase 81 U/L (38-126) 02/20/25 11:27
Most recent labs reviewed.
Micro Results:
02/20/25 17:30 Fungal Smear - Final
Pleural Fluid No yeast or fungal elements seen.
Fungal Culture - Preliminary
Culture in progress.
Positive cultures are reported as soon as detected.
Final report to follow in four to five weeks.
02/19/25 11:51 Blood Culture - Final
Blood/Venous No Growth - Final Report
02/19/25 11:52 Blood Culture - Final
Blood/Venous No Growth - Final Report
02/20/25 17:30 Body Fluid Culture - Final
Pleural Fluid No Growth After 72 Hours
Gram Stain - Final
02/21/25 13:37 Respiratory Culture - Final
Sputum April albicans
Gram Stain - Final
02/20/25 07:41 Nasal Screen MRSA (PCR) - Final
Nose MRSA not detected - performed by PCR methodology.
02/19/25 11:23 Influenza Types A & B (CJ) - Final
Nasal Swab Negative for Influenza A & B, NAAT
Negative results must be combined with clinical observations
and patient history.
Nucleic Acid Amplification test (NAAT)performed on the
[employer] platform.
Imaging:
02/24/2025 CXR (portable): Stable appearance of the rounded pleural-based density projecting over the lateral right midlung and loculated right-sided pleural effusion. Please see full dictation for additional detail.
02/19/2025 CT chest/abdomen/pelvis: Moderate right pleural effusion. Hypodense pulmonary consolidation/pneumonia in the posterior right lower lobe. Concern for the possibility of parenchymal necrosis is noted. Borderline mediastinal adenopathy.
Mild hepatomegaly. Mild fatty infiltration. Mild diverticulosis without evidence for diverticulitis. Please see full dictation for additional detail.
--- NOTE | 2025-02-27 18:12 | PTCARENOTE ---
Patient arrived to unit from IR with new right chest tube in place. Initial output upon arrival was 150 of serosanguineous fluid. current output total for this shift 13 since arrival and continues to drain serosanguineous fluid. Chest tube dressing
C/D/I. No s/s of respiratory distress noted at this time. C/O of pain 8/10 right side chest tube site. Medicated with pain Med as ordered. Plan of care ongoing. call lima within reach.
[2025-02-27] MEDS: SINEQUAN 100 MG PO (22:47)
[2025-02-28] MEDS: DILAUDID 1 MG IV ×5 (02:52→22:34)
[2025-02-28 07:10] VITALS: BP 113/70
[2025-02-28] MEDS: SENOKOT 8.6 MG PO ×2 (08:07→20:16)
[2025-02-28] MEDS: COLACE 100 MG PO ×2 (08:07→20:16)
[2025-02-28] MEDS: PROTONIX 40 MG PO ×2 (08:07→20:16)
[2025-02-28] MEDS: NORVASC 10 MG PO (08:07)
[2025-02-28] MEDS: CYANOCOBALAMIN 1000 MCG IM (08:07)
[2025-02-28] MEDS: WELLBUTRIN XL (24 hour extended release) 300 MG PO (08:07)
[2025-02-28] MEDS: FOLVITE 1 MG PO (08:07)
[2025-02-28] MEDS: LEXAPRO 20 MG PO (08:07)
[2025-02-28] MEDS: MIRALAX 17 GRAMS PO (08:11)
[2025-02-28] MEDS: OCEAN, SALINE MIST 2 SPRAYS NASAL (08:11)
[2025-02-28 08:27] LABS: Hemoglobin 8.8 g/dL (13.0-18.0); Mean Corp Hgb Conc. 31.4 g/dL (33.0-37.0); Mean Corpuscular Hgb 24.1 pg (27.0-31.0); Mean Corpuscular Volume 76.7 fL (80.0-94.0); Mean Platelet Volume 9.5 fL (7.4-10.4); Platelet Count 699 10^3/uL (130-400); Red Blood Cell Count 3.65 10^6/uL (4.70-6.10); Red Cell Dist. Width 16.9 % (11.5-14.5); White Blood Cell Count 10.2 10^3/uL (4.8-10.8)
[2025-02-28 08:28] LABS: % Basophils 0.6 % (0-2); % Immature Granulocytes 1.1 % (0-0.5); % Lymphocytes 14.2 % (20.5-51.1); % Monocytes 5.9 % (1.7-9.3); % Neutrophils 75.2 % (42.2-75.2); Absolute Basophils 0.1 10^3/uL (0-0.2); Absolute Eosinophils 0.3 10^3/uL (0-0.7); Absolute Immature Granulocytes 0.1 10^3/uL (0-0.05); Absolute Lymphocytes 1.5 10^3/uL (1.2-3.4); Absolute Monocytes 0.6 10^3/uL (0.1-0.6); Absolute Neutrophils 7.7 10^3/uL (1.4-6.5); Nucleated Red Blood Cells % 0 % (-)
--- NOTE | 2025-02-28 09:11 | W.PN.PUL3 ---
Today's Communication / Plan
-
s/p repositioning, able to obtain 180mL further output
Repeat CXR significantly improved
If no further drainage in next 24 hours, can d/c chest tube, d/w IR
Repeat CXR in AM post removal
PICC placement per ID
Discharge planning per team following
Assessment
-
54-year-old man with past medical history noted. Admitted with 2-3 day history of shortness of breath, pleuritic type chest pain, fevers.. Generalized malaise. Black stools. Found to have right lower lobe pneumonia possibly necrotizing with
associated pleural effusion
Severe pneumonia with right complicated parapneumonic effusion
S/p thoracentesis 02/20/2025: Negative Gram stain-exudative.
Acute respiratory failure secondary to pneumonia-[address] chest: Showed right lower lobe possible necrotizing pneumonia with associated pleural effusion.
Sepsis due to above: Leukocytosis/fever/tachypnea.
Pleuritic type chest pain
Acute blood loss anemia-reports black stools.
Hypokalemia
Hyponatremia
Conditions present prior admission:
Alcohol abuse
Anxiety
Hypertension
GERD
Plan:
Currently on RA, stable no complaints
Chest tube remains to suction
Clinical picture consistent with bacterial pneumonia/So far no evidence for pulmonary abscess: Possibly complicated aspiration pneumonia.
CT of the chest: Showed significant right lower lobe infiltrate with possible necrosis. Associated moderate pleural effusion. Borderline mediastinal adenopathy.
Severe Pneumonia with complicated parapneumonic effusion versus empyem
Status post right chest tube placement 02/20/2025 total output 1330 cc
Pleural fluid studies show significantly elevated LDH
Minimal pleural fluid drainage over last 24 hours, loculated collection persists on the chest x-ray
Discussed with IR service s/p intrapleural tPA/DNase x 3 doses (last dose 02/25)
Output overnight 20mL
Discussed with IR regarding repositioning of tube at rounded loculation
CXR performed today showing persistence
Consult placed, s/p repositioning 02/27 with extraction of loculated pleural fluid, 180mL output in Pleur-e-vac
Repeat CXR --appears significantly improved
If no further significant output in next 24 hours, can d/c--reviewed with IR
Continue broad-spectrum antibiotic per ID service
Sputum culture if able-patricia + 02/21
Pleural cultures negative 02/20
MRSA screening negative
Blood culture negative to date so far
Influenza negative
COVID-negative
Likely to need PICC placement and IV abx for total course
Pleural studies:
Pleural fluid exudative, pH 7.29/white blood cell 3041/88% polymorphs/glucose 69/total protein 3.6/LDH 1219--possible parapneumonic
Negative amylase and triglycerides.
Final cultures and cytology are negative
Chest pain: Likely pleuritic-improved post-thoracentesis, chest tube may cause pain as well
PRN pain control
Analgesia per primary team
Former smoker without evidence of COPD.
Secretion clearance interventions
DuoNebs as needed
Acapella device
Per patient he has not drank alcohol in a year.
Aspiration precautions
Echocardiogram showed normal LVEF. Mild . No RV dysfunction or regional motion wall abnormalities
No CHF findings
Hypokalemia being repleted- Improved. Defer to primary team.
Hyponatremia likely due to severe pneumonia- Improving.
Discussed plan of care with patient and nurse at bedside
Discharge planning in next 24 hours if stable
Diagnostic Data
CXR 02/24/25- There is stable appearance of the rounded pleural-based density projecting over the lateral right midlung and loculated right-sided pleural effusion.
02/22/25- Stable right-sided chest tube. Tiny right pleural effusion. New. Stable pleural-based rounded density in the lateral mid right lung field consistent with loculated pleural fluid on prior chest CT examination. Right-sided decreased lung
volume. Progressed. Cardiomegaly. Stable
CT CAP 02/19/25- Moderate right pleural effusion. Hypodense pulmonary consolidation/pneumonia in the posterior right lower lobe, raising possibility of parenchymal necrosis. Borderline mediastinal adenopathy.
Fat-containing hernia esophageal hiatus measuring approximately 6 cm. Mild hepatomegaly. Mild fatty infiltration and a few tiny cysts suggested. Mild diverticulosis. No evidence of acute diverticulitis. Mobile intraperitoneal cecum situated in the
left upper quadrant. Constipation with mild to moderate fecal burden in the cecum and ascending colon. The appendix is not identified with certainty. No secondary signs of appendicitis.
ECHO 02/20/25- Left ventricular ejection fraction is 65-70%. Normal regional wall motion. Normal right ventricular size and function. Mild aortic stenosis; peak/mean gradients 29/16 mmHg, calculated DUNG 1.6 cm2. No prior study available for
comparison.
-----
Total time spent today was 51 minutes for this encounter. Time includes reviewing laboratory test/imaging results, reviewing pertinent medical records, obtaining and reviewing medical history, performing an appropriate exam, ordering medications,
tests and procedures. Time also includes documentation of this encounter, coordinating patient care and communicating with other healthcare professionals. Total time does not include separately billed tests performed on this date of service.
Subjective Data
-
Date of Service:
Date of Service: February 28, 2025
Chief Complaint: Pulmonary Follow Up (Severe pneumonia with complicated parapneumonic effusion)
Subjective:
No new events, stable ON
Chest output with repositioning about 180mL
Objective Data
Data Reviewed
Vital Signs / I&O / Oxygen:
Vital Signs
Temp Pulse Resp BP Pulse Ox
98.7 F 89 20 129/72 94
02/28/25 07:10 02/28/25 07:10 02/28/25 07:10 02/28/25 08:07 02/28/25 07:10
Intake and Output
02/27/25 02/28/25 03/01/25
06:59 06:59 06:59
Intake Total 1200 / 1200 1440 / 1440
Output Total 850 / 850 418 / 418
Balance 350 / 350 1022 / 1022
SaO2 94
Nasal Cannula flow liters per 2
minute
Physical Exam
General: Comfortable and Good Appetite
HEENT: Normocephalic and Sinus Tenderness
Cardiovascular: S1-S2 and Regular Rhythm
Respiratory: Clear, Non-Labored Respirations and Chest Tube
GI: Soft, Non Distended and Non Tender
Neurology: Awake, Alert, Oriented and No Motor Deficits
Skin: Warm, Dry and Good Color
Labs/Micro/Reports
Lab Data
02/28/25 06:25
02/26/25 05:18
--- NOTE | 2025-02-28 09:32 | CM ---
Met with patient at bedside
chest tube
CM spoke with [facility] the patient has a $8500 [id number] deductible then is covered at 100% for medication/supplies/RN.
discussed with patient
PLAN: Discharge to home when medically stable and with IV abx through [facility].
--- NOTE | 2025-02-28 12:42 | W.PN.HOSP.TC ---
Today's Communication/Plan
-
Midline catheter
Bowel regimen
Assessment / Plan
Assessment / Plan
Gen-AAOx3, NAD
HEENT-NC, AT, anicteric, clear oral mm
Neck-supple
CV-reg, no M, +S1/S2
Lungs-clear B/L, decreased breath sounds right side
Abd-soft, NT, ND
Ext-no edema
Musculoskeletal-no cyanosis, clubbing
Skin-warm and dry
Neuro-grossly non-focal
Psych-calm, cooperative
Acute hypoxic respiratory failure - secondary to right sided necrotizing pneumonia. Initially required mid flow oxygen up to 12 L, oxygenation much improved. Currently on room air.
RLL necrotizing pneumonia with complicated parapneumonic effusion -Chest Tube placed on 02/21/25.
Moderate Right Pleural Effusion
-IR consult for pleural drainage --> chest tube placed on 02/21/25 -- since minimal pleural fluid drainage, and loculated collection persisted, started intrapleural tPA/DNase x 3 doses (see Pleural Drainage note from IR from 02/23/25)
-CT Chest after 3 doses of tPA DNase
Underwent new chest tube placement February 27 with improvement in output, chest x-ray today shows improvement in loculated effusion.
Sepsis Secondary to right-sided community-acquired pneumonia -blood cultures negative. Sepsis resolved. Leukocytosis improved. COVID and influenza negative. Now on IV ceftriaxone per infectious disease.
Acute anemia -microcytic. Heme positive stools in the emergency room. ENT input noted, unlikely to be acute anemia due to epistaxis. Has required 2 units of blood transfused this admission. Epistaxis resolved.
Suspect anemia due to ongoing GI blood loss. GI service reconsulted, recommendation is for outpatient EGD and colonoscopy. Hemoglobin stable at 8.8 this morning.
Did have melena prior to admission. Stools in the hospital have been brown.
Not iron deficient based on blood work.
Right-sided epistaxis -Patient reported that he has been having nose bleeds from the right nostril for the last few weeks.
ENT cauterized nosebleed on 02/23/25
Serum folate low--continue folic acid.
B12 in lowest quartile, methylmalonic acid level normal.
Constipation -likely multifactorial etiology including opioid-induced constipation. Has received 5 doses of IV Dilaudid in the past 24 hours.
Continue bowel regimen. Dulcolax suppository added.
Mild Diverticulosis
Mobile intraperitoneal cecum situated in the left upper quadrant
Reactive thrombocytosis - RESOLVED
Hypokalemia - RESOLVED
Replacements ordered
Magnesium normal
Hyponatremia - RESOLVED
Anxiety
Essential Hypertension
- continue Norvasc
GERD - PPI
Alcohol use disorder
Obesity due to excess calories
Full code
Dispo -anticipate discharge home on IV antibiotics, discussed with ID service.
Pulmonary believes that chest tube can be removed March 01 if no drainage overnight. Subsequently he can be discharged.
Anticipated Discharge: Within 24 hours
Subjective/Interval History
-
Date of Service: February 28, 2025
Patient seen and examined. Complaining of right-sided chest pain around chest tube.
Objective Data
-
Labs:
Laboratory Results
02/28/25
06:25
WBC 10.2
Hgb 8.8 L
Hct 28.0 L
Plt Count 699 H D
Vital Signs:
Vital Signs
Temp Pulse Resp BP Pulse Ox
98.7 F 89 20 129/72 94
02/28/25 07:10 02/28/25 07:10 02/28/25 07:10 02/28/25 08:07 02/28/25 10:16
I&O
02/27/25 02/28/25 03/01/25
06:59 06:59 06:59
Intake Total 1200 / 1200 1440 / 1440
Output Total 850 / 850 418 / 418
Balance 350 / 350 1022 / 1022
[2025-02-28] MEDS: ROCEPHIN 2000 MG IV (12:55)
[2025-02-28] MEDS: STERILE WATER FOR INJECTION 20 ML IV (12:55)
[2025-02-28] MEDS: OCEAN, SALINE MIST NASAL ×3 (13:01→21:18)
--- NOTE | 2025-02-28 13:46 | W.PN.ID1 ---
Date of Service
Date of Service: February 28, 2025
Today's Communication
Continue antibiotics. See below�
Assessment / Plan
Right-sided pneumonia
Suspected pulmonary necrosis (based on CT read)
Leukocytosis
Fever
Anxiety/depression
Hypertension
Alcohol abuse
Recommendations:
Ceftriaxone day #3; day #10 antibiotics
Leukocytosis overall improved and stable today.
Sputum culture unrevealing thus far, although poor quality specimens consisting mostly of spit. April noted, but sample of poor quality
--> Continue with ceftriaxone 2 g IV every 24 hours for an additional ~2 weeks of antibiotic therapy (through 03/14/2025).
Thereafter, transition to oral cefdinir 300 mg p.o. twice daily to continue through 03/28/2025.
Home antibiotic sheet placed on paper chart.
Follow white count and temperature curve.
����������������������������������������������������������
Chief Complaint
-: Pneumonia
Subjective / Review of Systems
Review of Systems: No Fever and No Chills
Vital Signs / Physical Exam
Vital Signs
Vital Signs
Temp Pulse Resp BP Pulse Ox
98.7 F 89 20 129/72 94
02/28/25 07:10 02/28/25 07:10 02/28/25 07:10 02/28/25 08:07 02/28/25 10:16
Physical Exam
Constitutional: No Acute Distress, Comfortable and Non-toxic
Eyes: Sclera Anicteric
Cardiovascular: Regular Rate and S1/S2; Negative S3/S4
Pulmonary: Non Labored and Other (Right chest tube in place with serous drainage)
Gastrointestinal: Soft, Non Tender and Non Distended
Skin: Warm and Dry; Negative Rash or Jaundice
Neurological: Awake and Alert
Psychological: Calm
Objective Data
Lab Data
Lab Results
02/28/25 06:25
02/26/25 05:18
Estimated Creat Clear > 125 ml/min 02/26/25 05:18
Lactic Acid 1.3 mmol/L (0.7-2.0) 02/19/25 11:23
Total Bilirubin 0.4 mg/dl (0.2-1.3) 02/20/25 11:27
AST 12 U/L (17-59) L 02/20/25 11:27
ALT 13 U/L (0-50) 02/20/25 11:27
Alkaline Phosphatase 81 U/L (38-126) 02/20/25 11:27
Most recent labs reviewed.
Micro Results:
02/20/25 17:30 Fungal Smear - Final
Pleural Fluid No yeast or fungal elements seen.
Fungal Culture - Preliminary
Culture in progress.
Positive cultures are reported as soon as detected.
Final report to follow in four to five weeks.
02/19/25 11:51 Blood Culture - Final
Blood/Venous No Growth - Final Report
02/19/25 11:52 Blood Culture - Final
Blood/Venous No Growth - Final Report
02/20/25 17:30 Body Fluid Culture - Final
Pleural Fluid No Growth After 72 Hours
Gram Stain - Final
02/21/25 13:37 Respiratory Culture - Final
Sputum April albicans
Gram Stain - Final
02/20/25 07:41 Nasal Screen MRSA (PCR) - Final
Nose MRSA not detected - performed by PCR methodology.
02/19/25 11:23 Influenza Types A & B (CJ) - Final
Nasal Swab Negative for Influenza A & B, NAAT
Negative results must be combined with clinical observations
and patient history.
Nucleic Acid Amplification test (NAAT)performed on the
[employer] platform.
Imaging:
02/24/2025 CXR (portable): Stable appearance of the rounded pleural-based density projecting over the lateral right midlung and loculated right-sided pleural effusion. Please see full dictation for additional detail.
02/19/2025 CT chest/abdomen/pelvis: Moderate right pleural effusion. Hypodense pulmonary consolidation/pneumonia in the posterior right lower lobe. Concern for the possibility of parenchymal necrosis is noted. Borderline mediastinal adenopathy.
Mild hepatomegaly. Mild fatty infiltration. Mild diverticulosis without evidence for diverticulitis. Please see full dictation for additional detail.
Care Review
Plan reviewed with: Physician (Hospitalist)
--- NOTE | 2025-02-28 14:28 | PTCARENOTE ---
order for midline placed per MD to continue IV abx on discharge. VAT will place on day of discharge. pt oob to the chair and has received prn pain medication for chest tube site pain/ around the chest tube area. see MAR for proper documentation.
[2025-02-28 15:05] VITALS: BP 117/68
[2025-02-28] MEDS: DULCOLAX 10 MG RECTAL (15:06)
[2025-02-28] MEDS: LOVENOX 40 MG SC (17:17)
--- NOTE | 2025-02-28 17:28 | PTCARENOTE ---
no output from chest tube for this RN this shift.
[2025-02-28] MEDS: SINEQUAN 100 MG PO (21:18)
[2025-02-28] MEDS: FLUSH (NSS) 2 FLUSH IV (22:35)
[2025-02-28 23:50] VITALS: BP 121/69
[2025-03-01] MEDS: DILAUDID 1 MG IV ×2 (07:00→21:29)
[2025-03-01] MEDS: FLUSH (NSS) 1 FLUSH IV (07:01)
[2025-03-01 07:29] VITALS: BP 116/75
[2025-03-01] MEDS: LEXAPRO 20 MG PO (08:56)
[2025-03-01] MEDS: SENOKOT 8.6 MG PO ×2 (08:56→20:12)
[2025-03-01] MEDS: WELLBUTRIN XL (24 hour extended release) 300 MG PO (08:56)
[2025-03-01] MEDS: MIRALAX 17 GRAMS PO (08:56)
[2025-03-01] MEDS: COLACE 100 MG PO ×2 (08:56→20:12)
[2025-03-01] MEDS: PROTONIX 40 MG PO ×2 (08:56→20:12)
[2025-03-01] MEDS: FOLVITE 1 MG PO (08:56)
[2025-03-01] MEDS: NORVASC 10 MG PO (08:56)
[2025-03-01] MEDS: OCEAN, SALINE MIST 2 SPRAYS NASAL ×4 (08:57→21:59)
[2025-03-01] MEDS: CYANOCOBALAMIN 1000 MCG IM (08:57)
[2025-03-01] MEDS: TYLENOL 650 MG PO (11:02)
--- NOTE | 2025-03-01 11:55 | W.PN.HOSP.TC ---
Today's Communication/Plan
-
Await chest tube removal
Arrange for home IV antibiotics
PT eval
Discharge if home antibiotics arranged.
Assessment / Plan
Assessment / Plan
Gen-AAOx3, NAD
HEENT-NC, AT, anicteric, clear oral mm
Neck-supple
CV-reg, no M, +S1/S2
Lungs-clear B/L, decreased breath sounds right side
Abd-soft, NT, ND
Ext-no edema
Musculoskeletal-no cyanosis, clubbing
Skin-warm and dry
Neuro-grossly non-focal
Psych-calm, cooperative
Acute hypoxic respiratory failure - secondary to right sided necrotizing pneumonia. Initially required mid flow oxygen up to 12 L, oxygenation much improved. Currently on room air.
RLL necrotizing pneumonia with complicated parapneumonic effusion -Chest Tube placed on 02/21/25.
Moderate Right Pleural Effusion
-IR consult for pleural drainage --> chest tube placed on 02/21/25 -- since minimal pleural fluid drainage, and loculated collection persisted, started intrapleural tPA/DNase x 3 doses (see Pleural Drainage note from IR from 02/23/25)
-CT Chest after 3 doses of tPA DNase
Underwent new chest tube placement February 27. Overnight nursing reports no output from chest tube. Pulmonary anticipates removing chest tube today.
Sepsis Secondary to right-sided community-acquired pneumonia -blood cultures negative. Sepsis resolved. Leukocytosis improved. COVID and influenza negative. Now on IV ceftriaxone per infectious disease. ID recommends IV ceftriaxone until February
27 and then transition to oral cefdinir until March 28.
Acute anemia -microcytic. Heme positive stools in the emergency room. ENT input noted, unlikely to be acute anemia due to epistaxis. Has required 2 units of blood transfused this admission. Epistaxis resolved.
Suspect anemia due to ongoing GI blood loss. GI service reconsulted, recommendation is for outpatient EGD and colonoscopy. Hemoglobin stable at 8.8 this morning.
Did have melena prior to admission. Stools in the hospital have been brown.
Not iron deficient based on blood work.
Right-sided epistaxis -Patient reported that he has been having nose bleeds from the right nostril for the last few weeks.
ENT cauterized nosebleed on 02/23/25
Serum folate low--continue folic acid.
B12 in lowest quartile, methylmalonic acid level normal.
Constipation -likely multifactorial etiology including opioid-induced constipation. Has received 5 doses of IV Dilaudid in the past 24 hours.
Continue bowel regimen. Dulcolax suppository added.
Mild Diverticulosis
Mobile intraperitoneal cecum situated in the left upper quadrant
Reactive thrombocytosis - RESOLVED
Hypokalemia - RESOLVED
Replacements ordered
Magnesium normal
Hyponatremia - RESOLVED
Anxiety
Essential Hypertension
- continue Norvasc
GERD - PPI
Alcohol use disorder
Obesity due to excess calories
Full code
Dispo -anticipate discharge home on IV antibiotics today if chest tube comes out. I did speak with spring encaser in person regarding discharge plans today. I did speak with group rooms coordinator to consider removing chest tube today given no output
overnight.
Patient requesting to stay until Monday for more physical therapy, I explained to him that we can have therapy work with him today and if they clear him to go home then there is no reason to stay in the hospital another 48 hours.
Last PT note from February 27 states home versus outpatient PT.
Anticipated Discharge: Today
Subjective/Interval History
-
Date of Service: March 01, 2025
Patient seen and examined. Complaining of weakness with ambulation.
Objective Data
-
Vital Signs:
Vital Signs
Temp Pulse Resp BP Pulse Ox
99.2 F 86 16 116/75 94
03/01/25 07:29 03/01/25 07:29 03/01/25 07:29 03/01/25 07:29 03/01/25 07:29
I&O
06/03/01/25 03/02/25
06:59 06:59 06:59
Intake Total 1440 / 1440 2039
Output Total 418 / 418
Balance 1022 / 1022 2039
Review of Systems
-
History Source: Patient
All other systems: Reviewed and negative
[2025-03-01] MEDS: STERILE WATER FOR INJECTION 20 ML IV (12:33)
[2025-03-01] MEDS: MOTRIN 800 MG PO ×2 (12:33→20:11)
[2025-03-01] MEDS: ROCEPHIN 2000 MG IV (12:33)
--- NOTE | 2025-03-01 13:08 | CM ---
CM following re: discharge planning.
Reviewed pt's chart, met with pt.
According to pt is medically stable to be discharged today with IV antibiotics.
CM spoke to [facility] collections representative Ronda [phone] and she stated she requested pt's clinical with a script and midline information.
A referral to [facility] made, pt's clinical with a script and midline information faxed to [facility] at [phone]. Per [facility] collections representative Ronda, they will review a referral and they probably will be able to start home
infusion therapy as early as Monday03/04/25.
Pt referred to [facility] for managing IV infusion.
CM will coordinate with [facility] infusion therapy, [facility] on Monday for a possible discharge on Monday with start home infusion therapy on Monday.
D/C home with [facility] infusion therapy, [facility] and family support most likely on Monday with start home infusion therapy on Monday.
CM will follow with discharge plan updates as hospitalization progresses
[2025-03-01 15:41] VITALS: BP 115/70
--- NOTE | 2025-03-01 15:49 | W.PN.ID1 ---
Date of Service
Date of Service: March 01, 2025
Today's Communication
Continue antibiotics.
Assessment / Plan
Right-sided pneumonia
Suspected pulmonary necrosis (based on CT read)
Leukocytosis
Fever
Anxiety/depression
Hypertension
Alcohol abuse
Recommendations:
Ceftriaxone day #4; day #11 antibiotics
Leukocytosis overall improved and stable today.
Sputum culture unrevealing thus far, although poor quality specimens consisting mostly of spit. April noted, but sample of poor quality
--> Continue with ceftriaxone 2 g IV q24H, through 03/14/2025
Thereafter, transition to oral cefdinir 300 mg p.o. BID, to continue through 03/28/2025.
Home antibiotic sheet placed on paper chart.
Follow white count and temperature curve.
����������������������������������������������������������
Chief Complaint
-: Pneumonia
Subjective / Review of Systems
Review of Systems: No Fever and No Chills
Vital Signs / Physical Exam
Vital Signs
Vital Signs
Temp Pulse Resp BP Pulse Ox
99.4 F 93 16 115/70 95
03/01/25 15:41 03/01/25 15:41 03/01/25 15:41 03/01/25 15:41 03/01/25 15:41
Physical Exam
Constitutional: No Acute Distress, Comfortable and Non-toxic
Eyes: Sclera Anicteric
Pulmonary: Non Labored and Other (Right chest tube in place with serous drainage)
Gastrointestinal: Non Distended
Skin: Warm and Dry; Negative Rash or Jaundice
Neurological: Awake and Alert
Psychological: Calm
Lines: PICC
Objective Data
Lab Data
Lab Results
02/28/25 06:25
02/26/25 05:18
Estimated Creat Clear > 125 ml/min 02/26/25 05:18
Lactic Acid 1.3 mmol/L (0.7-2.0) 02/19/25 11:23
Total Bilirubin 0.4 mg/dl (0.2-1.3) 02/20/25 11:27
AST 12 U/L (17-59) L 02/20/25 11:27
ALT 13 U/L (0-50) 02/20/25 11:27
Alkaline Phosphatase 81 U/L (38-126) 02/20/25 11:27
Most recent labs reviewed.
Micro Results:
02/20/25 17:30 Fungal Smear - Final
Pleural Fluid No yeast or fungal elements seen.
Fungal Culture - Preliminary
Culture in progress.
Positive cultures are reported as soon as detected.
Final report to follow in four to five weeks.
02/19/25 11:51 Blood Culture - Final
Blood/Venous No Growth - Final Report
02/19/25 11:52 Blood Culture - Final
Blood/Venous No Growth - Final Report
02/20/25 17:30 Body Fluid Culture - Final
Pleural Fluid No Growth After 72 Hours
Gram Stain - Final
02/21/25 13:37 Respiratory Culture - Final
Sputum April albicans
Gram Stain - Final
02/20/25 07:41 Nasal Screen MRSA (PCR) - Final
Nose MRSA not detected - performed by PCR methodology.
02/19/25 11:23 Influenza Types A & B (CJ) - Final
Nasal Swab Negative for Influenza A & B, NAAT
Negative results must be combined with clinical observations
and patient history.
Nucleic Acid Amplification test (NAAT)performed on the
[employer] platform.
Imaging:
02/24/2025 CXR (portable): Stable appearance of the rounded pleural-based density projecting over the lateral right midlung and loculated right-sided pleural effusion. Please see full dictation for additional detail.
02/19/2025 CT chest/abdomen/pelvis: Moderate right pleural effusion. Hypodense pulmonary consolidation/pneumonia in the posterior right lower lobe. Concern for the possibility of parenchymal necrosis is noted. Borderline mediastinal adenopathy.
Mild hepatomegaly. Mild fatty infiltration. Mild diverticulosis without evidence for diverticulitis. Please see full dictation for additional detail.
--- NOTE | 2025-03-01 16:38 | W.PN.PUL3 ---
Today's Communication / Plan
-
Chest tube has stopped draining and the right midlung mass has now fully resolved; remove chest tube today
Repeat CXR tomorrow
PICC placement per ID; continue with ceftriaxone
Discharge planning per team following
Assessment
-
54-year-old man with past medical history noted. Admitted with 2-3 day history of shortness of breath, pleuritic type chest pain, fevers.. Generalized malaise. Black stools. Found to have right lower lobe pneumonia possibly necrotizing with
associated pleural effusion
Severe pneumonia with right complicated parapneumonic effusion
S/p thoracentesis 02/20/2025: Negative Gram stain-exudative.
Acute respiratory failure secondary to pneumonia-[address] chest: Showed right lower lobe possible necrotizing pneumonia with associated pleural effusion.
Sepsis due to above: Leukocytosis/fever/tachypnea.
Pleuritic type chest pain
Acute blood loss anemia-reports black stools.
Hypokalemia
Hyponatremia
Conditions present prior admission:
Alcohol abuse
Anxiety
Hypertension
GERD
Plan:
Currently on RA, stable no complaints
Chest tube remains to suction
CXR shows marked improvement of the prior right midlung mass --> chest tube has stopped draining. I will remove the chest tube today, which was reviewed with IR and they also agree
Repeat CXR tomorrow and consider CT chest Monday to assure that there is no additional residual fluid that needs to be drained from his right lung
Clinical picture consistent with bacterial pneumonia/So far no evidence for pulmonary abscess: Possibly complicated aspiration pneumonia.
CT of the chest: Showed significant right lower lobe infiltrate with possible necrosis. Associated moderate pleural effusion. Borderline mediastinal adenopathy.
Severe Pneumonia with complicated parapneumonic effusion versus empyem
Status post right chest tube placement 02/20/2025 total output 1330 cc
Pleural fluid studies show significantly elevated LDH
Discussed with IR service s/p intrapleural tPA/DNase x 3 doses (last dose 02/25)
Discussed with IR regarding repositioning of tube at rounded loculation
Consult placed, s/p repositioning 02/27 with extraction of loculated pleural fluid, 180mL output in Pleur-e-vac
Repeat CXR --appears significantly improved
Continue broad-spectrum antibiotic per ID service � remains on ceftriaxone
Sputum culture if able-patricia + 02/21
Pleural cultures negative 02/20
MRSA screening negative
Blood culture negative to date so far
Influenza negative
COVID-negative
Likely to need PICC placement and IV abx for total course
Pleural studies:
Pleural fluid exudative, pH 7.29/white blood cell 3041/88% polymorphs/glucose 69/total protein 3.6/LDH 1219--possible parapneumonic
Negative amylase and triglycerides.
Final cultures and cytology are negative
Chest pain: Likely pleuritic-improved post-thoracentesis, chest tube may cause pain as well
PRN pain control
Analgesia per primary team
Former smoker without evidence of COPD.
Secretion clearance interventions
DuoNebs as needed
Acapella device
Per patient he has not drank alcohol in a year.
Aspiration precautions
Echocardiogram showed normal LVEF. Mild . No RV dysfunction or regional motion wall abnormalities
No CHF findings
Hypokalemia being repleted- Improved. Defer to primary team.
Hyponatremia likely due to severe pneumonia- Improving.
Discussed plan of care with patient and nurse at bedside
Check CXR tomorrow. Pulmonary service will continue to follow along
Diagnostic Data
CXR 02/24/25- There is stable appearance of the rounded pleural-based density projecting over the lateral right midlung and loculated right-sided pleural effusion.
02/22/25- Stable right-sided chest tube. Tiny right pleural effusion. New. Stable pleural-based rounded density in the lateral mid right lung field consistent with loculated pleural fluid on prior chest CT examination. Right-sided decreased lung
volume. Progressed. Cardiomegaly. Stable
CT CAP 02/19/25- Moderate right pleural effusion. Hypodense pulmonary consolidation/pneumonia in the posterior right lower lobe, raising possibility of parenchymal necrosis. Borderline mediastinal adenopathy.
Fat-containing hernia esophageal hiatus measuring approximately 6 cm. Mild hepatomegaly. Mild fatty infiltration and a few tiny cysts suggested. Mild diverticulosis. No evidence of acute diverticulitis. Mobile intraperitoneal cecum situated in the
left upper quadrant. Constipation with mild to moderate fecal burden in the cecum and ascending colon. The appendix is not identified with certainty. No secondary signs of appendicitis.
ECHO 02/20/25- Left ventricular ejection fraction is 65-70%. Normal regional wall motion. Normal right ventricular size and function. Mild aortic stenosis; peak/mean gradients 29/16 mmHg, calculated DUNG 1.6 cm2. No prior study available for
comparison.
-----
Total time spent today was 36 minutes for this encounter. Time includes reviewing laboratory test/imaging results, reviewing pertinent medical records, obtaining and reviewing medical history, performing an appropriate exam, ordering medications,
tests and procedures. Time also includes documentation of this encounter, coordinating patient care and communicating with other healthcare professionals. Total time does not include separately billed tests performed on this date of service.
Subjective Data
-
Date of Service:
Date of Service: March 01, 2025
Chief Complaint: Pulmonary Follow Up (Severe pneumonia with complicated parapneumonic effusion)
Subjective:
Pt seen earlier today (late note entry). He feels well. Denies fevers or chills, or chest pain. Has some mild shortness of breath with exertion. Currently on room air breathing comfortably.
Review of Systems
General: Other (Negative unless mentioned above)
Objective Data
Data Reviewed
Vital Signs / I&O / Oxygen:
Vital Signs
Temp Pulse Resp BP Pulse Ox
99.2 F 86 16 116/75 94
03/01/25 07:29 03/01/25 07:29 03/01/25 07:29 03/01/25 07:29 03/01/25 07:29
Intake and Output
02/28/25 03/01/25 03/02/25
06:59 06:59 06:59
Intake Total 1440 / 1440 2039
Output Total 418 / 418
Balance 1022 / 1022 2039
SaO2 94
Nasal Cannula flow liters per 2
minute
Physical Exam
General: Respiratory Distress (n), Comfortable and Good Appetite
HEENT: Normocephalic and Sinus Tenderness
Cardiovascular: S1-S2, Regular Rhythm and Peripheral Edema (n)
Respiratory: Wheeze (n), Crackles (Right base), Rhonchi (Right base), Non-Labored Respirations and Chest Tube (Right hemithorax with no airleak)
GI: Soft, Non Distended and Non Tender
Neurology: Awake, Alert, Oriented and Tremors (n)
Skin: Warm, Dry and Good Color
Labs/Micro/Reports
Lab Data
02/28/25 06:25
02/26/25 05:18
[2025-03-01] MEDS: LOVENOX 40 MG SC (17:41)
--- NOTE | 2025-03-01 21:08 | W.PN.UPDATE ---
Update Note
Progress Note Update
Chest tube has been removed without incident. He had some pain after it was pulled, and RN to give him prn dilaudid that is already ordered. Repeat CXR tomorrow as stated in my daily progress note.
--- NOTE | 2025-03-01 21:30 | PTCARENOTE ---
Chest Tube pulled by Pulmonary MD. Patient c/o pain at site. PRN IV Dilaudid was given as per Pulmonary MD.
[2025-03-01] MEDS: FLUSH (NSS) 2 FLUSH IV (21:32)
[2025-03-01] MEDS: SINEQUAN 100 MG PO (21:58)
[2025-03-01 23:31] VITALS: BP 121/66
[2025-03-02 05:57] LABS: % Basophils 0.9 % (0-2); % Eosinophils 5.2 % (0-6); % Lymphocytes 15.7 % (20.5-51.1); % Monocytes 6.3 % (1.7-9.3); % Neutrophils 70.9 % (42.2-75.2); Absolute Basophils 0.1 10^3/uL (0-0.2); Absolute Eosinophils 0.4 10^3/uL (0-0.7); Absolute Immature Granulocytes 0.1 10^3/uL (0-0.05); Absolute Lymphocytes 1.2 10^3/uL (1.2-3.4); Absolute Monocytes 0.5 10^3/uL (0.1-0.6); Absolute Neutrophils 5.6 10^3/uL (1.4-6.5); Hematocrit 26.2 % (39.0-52.0); Hemoglobin 8.3 g/dL (13.0-18.0); Mean Corp Hgb Conc. 31.7 g/dL (33.0-37.0); Mean Corpuscular Hgb 24.3 pg (27.0-31.0); Mean Corpuscular Volume 76.6 fL (80.0-94.0); Mean Platelet Volume 9.6 fL (7.4-10.4); Nucleated Red Blood Cells % 0 % (-); Platelet Count 764 10^3/uL (130-400); Red Blood Cell Count 3.42 10^6/uL (4.70-6.10); White Blood Cell Count 7.9 10^3/uL (4.8-10.8)
[2025-03-02 07:15] VITALS: BP 116/82
[2025-03-02] MEDS: SENOKOT 8.6 MG PO ×2 (07:46→20:56)
[2025-03-02] MEDS: LEXAPRO 20 MG PO (07:46)
[2025-03-02] MEDS: PROTONIX 40 MG PO ×2 (07:46→20:57)
[2025-03-02] MEDS: COLACE 100 MG PO ×2 (07:46→20:57)
[2025-03-02] MEDS: NORVASC 10 MG PO (07:47)
[2025-03-02] MEDS: FOLVITE 1 MG PO (07:47)
[2025-03-02] MEDS: CYANOCOBALAMIN 1000 MCG IM (07:47)
[2025-03-02] MEDS: OCEAN, SALINE MIST 2 SPRAYS NASAL ×4 (07:47→21:01)
[2025-03-02] MEDS: MIRALAX 17 GRAMS PO (07:47)
[2025-03-02] MEDS: WELLBUTRIN XL (24 hour extended release) 300 MG PO (07:47)
--- NOTE | 2025-03-02 09:26 | W.PN.HOSP.TC ---
Today's Communication/Plan
-
Chest x-ray
Stop IV Dilaudid
Assessment / Plan
Assessment / Plan
Gen-AAOx3, NAD
HEENT-NC, AT, anicteric, clear oral mm
Neck-supple
CV-reg, no M, +S1/S2
Lungs-clear B/L, decreased breath sounds right side
Abd-soft, NT, ND
Ext-no edema
Musculoskeletal-no cyanosis, clubbing
Skin-warm and dry
Neuro-grossly non-focal
Psych-calm, cooperative
Acute hypoxic respiratory failure - secondary to right sided necrotizing pneumonia. Initially required mid flow oxygen up to 12 L, oxygenation much improved. Currently on room air.
RLL necrotizing pneumonia with complicated parapneumonic effusion -Chest Tube placed on 02/21/25.
Moderate Right Pleural Effusion
-IR consult for pleural drainage --> chest tube placed on 02/21/25 -- since minimal pleural fluid drainage, and loculated collection persisted, started intrapleural tPA/DNase x 3 doses (see Pleural Drainage note from IR from 02/23/25)
-CT Chest after 3 doses of tPA DNase
Underwent new chest tube placement February 27.
Chest tube removed March 01. For two-view chest x-ray today.
Sepsis Secondary to right-sided community-acquired pneumonia -blood cultures negative. Sepsis resolved. Leukocytosis improved. COVID and influenza negative. Now on IV ceftriaxone per infectious disease. ID recommends IV ceftriaxone until February
and then transition to oral cefdinir until March 28.
Acute anemia -microcytic. Heme positive stools in the emergency room. ENT input noted, unlikely to be acute anemia due to epistaxis. Has required 2 units of blood transfused this admission. Epistaxis resolved.
Suspect anemia due to ongoing GI blood loss. GI service reconsulted, recommendation is for outpatient EGD and colonoscopy. Hemoglobin stable at 8.3 this morning.
Did have melena prior to admission. Stools in the hospital have been brown.
Not iron deficient based on blood work.
Informed patient to use NSAIDs sparingly, not [id number].
Right-sided epistaxis -Patient reported that he has been having nose bleeds from the right nostril for the last few weeks.
ENT cauterized nosebleed on 02/23/25
Serum folate low--continue folic acid.
B12 in lowest quartile, methylmalonic acid level normal.
Constipation -likely multifactorial etiology including opioid-induced constipation. Discontinue further IV Dilaudid.
Continue bowel regimen. Dulcolax suppository added.
Mild Diverticulosis
Mobile intraperitoneal cecum situated in the left upper quadrant
Reactive thrombocytosis - RESOLVED
Hypokalemia - RESOLVED
Replacements ordered
Magnesium normal
Hyponatremia - RESOLVED
Anxiety
Essential Hypertension
- continue Norvasc
GERD - PPI
Alcohol use disorder
Obesity due to excess calories
Full code
Dispo -anticipate discharge home on IV antibiotics Monday per case management. Setting up visiting nursing.
Anticipated Discharge: Within 24 hours
Subjective/Interval History
-
Date of Service: March 02, 2025
Patient seen and examined. Denies chest pain, does have mild dyspnea on exertion.
Objective Data
-
Labs:
Laboratory Results
03/02/25
05:04
WBC 7.9
Hgb 8.3 L
Hct 26.2 L
Plt Count 764 H
Vital Signs:
Vital Signs
Temp Pulse Resp BP Pulse Ox
98.2 F 89 16 116/82 97
03/02/25 07:15 03/02/25 07:15 03/02/25 07:15 03/02/25 07:15 03/02/25 07:15
I&O
03/01/25 03/02/25 03/03/25
06:59 06:59 06:59
Intake Total 2039 1320 / 1320
Balance 2039
Review of Systems
-
History Source: Patient
All other systems: Reviewed and negative
[2025-03-02] MEDS: ROCEPHIN 2000 MG IV (13:07)
[2025-03-02] MEDS: STERILE WATER FOR INJECTION 20 ML IV (13:08)
[2025-03-02] MEDS: MOTRIN 800 MG PO ×2 (13:16→23:23)
[2025-03-02 15:25] VITALS: BP 134/80
--- NOTE | 2025-03-02 16:10 | W.PN.PUL3 ---
Today's Communication / Plan
-
Chest tube removed on 03/01
Chest pain improved s/p CT removal
CXR showed improved aeration of RLL
Check CT Chest tomorrow to assess if any residual fluid remaining and re-assess RLL parenchyma
PICC placement per ID; continue with ceftriaxone
Discharge planning per team
Assessment
-
54-year-old man with past medical history noted. Admitted with 2-3 day history of shortness of breath, pleuritic type chest pain, fevers.. Generalized malaise. Black stools. Found to have right lower lobe pneumonia possibly necrotizing with
associated pleural effusion
Severe pneumonia with right complicated parapneumonic effusion
S/p thoracentesis 02/20/2025: Negative Gram stain-exudative.
Acute respiratory failure secondary to pneumonia-[address] chest: Showed right lower lobe possible necrotizing pneumonia with associated pleural effusion.
Sepsis due to above: Leukocytosis/fever/tachypnea.
Pleuritic type chest pain
Acute blood loss anemia-reports black stools.
Hypokalemia
Hyponatremia
Conditions present prior admission:
Alcohol abuse
Anxiety
Hypertension
GERD
Plan:
Currently on RA, stable no complaints
Chest tube removed yesterday (03/01) after Dr. Ward reviewed the case with IR
CXR on 03/01 prior to chest tube removal showed marked improvement of the prior right midlung mass.
CXR repeated today (03/02) showing improved aeration of RLL with reduced opacification, possibly due to improved inspiratory capacity without chest tube present
Check CT chest tomorrow to assure that there is no additional residual fluid that needs to be drained from his right lung
Clinical picture consistent with bacterial pneumonia/So far no evidence for pulmonary abscess: Possibly complicated aspiration pneumonia.
He says he was having symptoms for 'some time' before he seeked help
CT of the chest: Showed significant right lower lobe infiltrate with possible necrosis. Associated moderate pleural effusion. Borderline mediastinal adenopathy.
Severe Pneumonia with complicated parapneumonic effusion versus empyema
Status post right chest tube placement 02/20/2025 total output 1330 cc
Pleural fluid studies show significantly elevated LDH
Discussed with IR service s/p intrapleural tPA/DNase x 3 doses (last dose 02/25)
Discussed with IR regarding repositioning of tube at rounded loculation
Consult placed, s/p repositioning 02/27 with extraction of loculated pleural fluid, 180mL output in Pleur-e-vac
Repeat CXR --appears significantly improved
Continue broad-spectrum antibiotic per ID service � remains on ceftriaxone
Sputum culture-patricia + 02/21
Pleural cultures negative 02/20
MRSA screening negative
Blood culture negative to date so far
Influenza negative
COVID-negative
Likely to need PICC placement and IV abx for total course
Pleural studies:
Pleural fluid exudative, pH 7.29/white blood cell 3041/88% polymorphs/glucose 69/total protein 3.6/LDH 1219--possible parapneumonic
Negative amylase and triglycerides.
Final cultures and cytology are negative
Chest pain: Likely pleuritic-improved post-thoracentesis, chest tube may cause pain as well --> pain is now better since chest tube has been removed
Continue to monitor pain and continue prn analgesia
Former smoker without evidence of COPD.
Secretion clearance interventions
DuoNebs as needed
Acapella device
Per patient he has not drank alcohol in a year.
Aspiration precautions
Echocardiogram showed normal LVEF. Mild . No RV dysfunction or regional motion wall abnormalities
No CHF findings
Discussed plan of care with patient and nurse at bedside
Pulmonary service will continue to follow along
Diagnostic Data
CXR 02/24/25- There is stable appearance of the rounded pleural-based density projecting over the lateral right midlung and loculated right-sided pleural effusion.
02/22/25- Stable right-sided chest tube. Tiny right pleural effusion. New. Stable pleural-based rounded density in the lateral mid right lung field consistent with loculated pleural fluid on prior chest CT examination. Right-sided decreased lung
volume. Progressed. Cardiomegaly. Stable
CT CAP 02/19/25- Moderate right pleural effusion. Hypodense pulmonary consolidation/pneumonia in the posterior right lower lobe, raising possibility of parenchymal necrosis. Borderline mediastinal adenopathy.
Fat-containing hernia esophageal hiatus measuring approximately 6 cm. Mild hepatomegaly. Mild fatty infiltration and a few tiny cysts suggested. Mild diverticulosis. No evidence of acute diverticulitis. Mobile intraperitoneal cecum situated in the
left upper quadrant. Constipation with mild to moderate fecal burden in the cecum and ascending colon. The appendix is not identified with certainty. No secondary signs of appendicitis.
ECHO 02/20/25- Left ventricular ejection fraction is 65-70%. Normal regional wall motion. Normal right ventricular size and function. Mild aortic stenosis; peak/mean gradients 29/16 mmHg, calculated DUNG 1.6 cm2. No prior study available for
comparison.
-----
Total time spent today was 38 minutes for this encounter. Time includes reviewing laboratory test/imaging results, reviewing pertinent medical records, obtaining and reviewing medical history, performing an appropriate exam, ordering medications,
tests and procedures. Time also includes documentation of this encounter, coordinating patient care and communicating with other healthcare professionals. Total time does not include separately billed tests performed on this date of service.
Subjective Data
-
Date of Service:
Date of Service: March 02, 2025
Chief Complaint: Pulmonary Follow Up (Severe pneumonia with complicated parapneumonic effusion)
Subjective:
Pt seen earlier today (late note entry). Sitting in bed in NAD. R-sided chest tube removed yesterday. He feels well. Denies chest pain, SOB, although he did feel chest pain while the chest tube was being removed. Currently on room air breathing
comfortably.
Review of Systems
General: Other (Negative unless mentioned above)
Objective Data
Data Reviewed
Vital Signs / I&O / Oxygen:
Vital Signs
Temp Pulse Resp BP Pulse Ox
98.2 F 89 16 116/82 97
03/02/25 07:15 03/02/25 07:15 03/02/25 07:15 03/02/25 07:15 03/02/25 07:15
Intake and Output
03/01/25 03/02/25 03/03/25
06:59 06:59 06:59
Intake Total 2039 1320 / 1320
Balance 2039 1320 / 1320
SaO2 97
Nasal Cannula flow liters per 2
minute
Physical Exam
General: Respiratory Distress (n), Comfortable and Good Appetite
HEENT: Normocephalic and Sinus Tenderness
Cardiovascular: S1-S2 and Peripheral Edema (n)
Respiratory: Wheeze (n), Crackles (Right base), Rhonchi (Right base), Non-Labored Respirations and Other (Squeaks heard upon inspiration at RLL)
GI: Soft, Non Distended, Non Tender and Normal Bowel Sounds
Neurology: AO x 3 and Tremors (n)
Skin: Warm, Dry and Good Color
Labs/Micro/Reports
Lab Data
03/02/25 05:04
02/26/25 05:18
[2025-03-02] MEDS: LOVENOX 40 MG SC (17:23)
[2025-03-02] MEDS: SINEQUAN 100 MG PO (21:00)
[2025-03-02] MEDS: MELATONIN 10 MG PO (22:38)
[2025-03-02 23:13] VITALS: BP 115/79
[2025-03-03] MEDS: DESYREL 12.5 MG PO (00:12)
[2025-03-03 05:32] LABS: % Basophils 1.2 % (0-2); % Eosinophils 4.5 % (0-6); % Immature Granulocytes 2.4 % (0-0.5); % Monocytes 6.4 % (1.7-9.3); % Neutrophils 69.5 % (42.2-75.2); Absolute Basophils 0.1 10^3/uL (0-0.2); Absolute Eosinophils 0.3 10^3/uL (0-0.7); Absolute Immature Granulocytes 0.2 10^3/uL (0-0.05); Absolute Lymphocytes 1.2 10^3/uL (1.2-3.4); Absolute Monocytes 0.5 10^3/uL (0.1-0.6); Absolute Neutrophils 5.3 10^3/uL (1.4-6.5); Hematocrit 26.7 % (39.0-52.0); Hemoglobin 8.4 g/dL (13.0-18.0); Mean Corp Hgb Conc. 31.5 g/dL (33.0-37.0); Mean Corpuscular Hgb 24.1 pg (27.0-31.0); Mean Corpuscular Volume 76.5 fL (80.0-94.0); Mean Platelet Volume 9.3 fL (7.4-10.4); Nucleated Red Blood Cells % 0 % (-); Platelet Count 799 10^3/uL (130-400); Red Blood Cell Count 3.49 10^6/uL (4.70-6.10); Red Cell Dist. Width 16.9 % (11.5-14.5); White Blood Cell Count 7.6 10^3/uL (4.8-10.8)
[2025-03-03 07:58] VITALS: BP 123/76
--- NOTE | 2025-03-03 08:02 | W.PN.HOSP.TC ---
Addendum entered and electronically signed by Leobardo Daniel MD 03/03/25 14:35:
Per interventional radiology, ultrasound completed, not enough fluid to tap plus what fluid that was seen was loculated and high up/not able to get to. I communicated with pulmonary about this, and patient is okay for discharge from their standpoint
with follow-up with outpatient CT in a few weeks.
Original Note:
Today's Communication/Plan
-
Discharge today
Assessment / Plan
Assessment / Plan
Physical Exam
Gen-AAOx3, NAD
HEENT-NC, AT, anicteric, clear oral mm
Neck-supple
CV-reg, no M, +S1/S2
Lungs-decreased breath sounds right side
Abd-soft, NT, ND
Ext-no edema
Musculoskeletal-no cyanosis, clubbing
Skin-warm and dry
Neuro-grossly non-focal
Psych-calm, cooperative
Assessment/Plan
Acute hypoxic respiratory failure - secondary to right sided necrotizing pneumonia. Initially required mid flow oxygen up to 12 L, oxygenation much improved. Currently on room air.
RLL necrotizing pneumonia with complicated parapneumonic effusion -Chest Tube placed on 02/21/25.
Moderate Right Pleural Effusion
-IR consult for pleural drainage --> chest tube placed on 02/21/25 -- since minimal pleural fluid drainage, and loculated collection persisted, started intrapleural tPA/DNase x 3 doses (see Pleural Drainage note from IR from 02/23/25)
-CT Chest after 3 doses of tPA DNase
Underwent new chest tube placement February 27.
Chest tube removed March 01.
-CT 03/03: improvement but persistent area of pleural effusion on the right side posteriorly. Patient does not want any more chest tube. Thoracentesis today, followed by discharge (I confirmed today this plan with pulmonary)
Sepsis Secondary to right-sided community-acquired pneumonia -blood cultures negative. Sepsis resolved. Leukocytosis improved. COVID and influenza negative. Now on IV ceftriaxone per infectious disease. ID recommends IV ceftriaxone until February
2024 and then transition to oral cefdinir until March 28, 2025.
Acute anemia -microcytic. Heme positive stools in the emergency room. ENT input noted, unlikely to be acute anemia due to epistaxis. Has required 2 units of blood transfused this admission. Epistaxis resolved.
Suspect anemia due to ongoing GI blood loss. GI service reconsulted, recommendation is for outpatient EGD and colonoscopy. Hemoglobin stable at 8.4 this morning.
Did have melena prior to admission. Stools in the hospital have been brown.
Not iron deficient based on blood work.
Dr. Monroy informed patient to use NSAIDs sparingly, not [id number].
Right-sided epistaxis -Patient reported that he has been having nose bleeds from the right nostril for the last few weeks.
ENT cauterized nosebleed on 02/23/25
Serum folate low--continue folic acid.
B12 in lowest quartile, methylmalonic acid level normal.
Constipation -likely multifactorial etiology including opioid-induced constipation. Discontinue further IV Dilaudid.
Continue bowel regimen. Dulcolax suppository added.
Mild Diverticulosis
Mobile intraperitoneal cecum situated in the left upper quadrant
Reactive thrombocytosis
Hypokalemia - RESOLVED
Replacements ordered
Magnesium normal
Hyponatremia - RESOLVED
Anxiety
Essential Hypertension
- continue Norvasc
GERD - PPI
Alcohol use disorder
Obesity due to excess calories
Full code
More than 30 minutes spent in discharge including
Final examination of the patient
Summarizing hospital stay
Instructions for continuing care to all relevant caregivers
Preparation of discharge records, prescriptions, and referral forms
Total time spent (in minutes): 41
Anticipated Discharge: Today
Subjective/Interval History
-
Date of Service: March 03, 2025
Patient was seen and examined. He reported doing well, and denied any chest pain, shortness of breath or any other complaints.
Objective Data
-
Labs:
Laboratory Results
03/03/25
04:55
WBC 7.6
Hgb 8.4 L
Hct 26.7 L
Plt Count 799 H
Vital Signs:
Vital Signs
Temp Pulse Resp BP Pulse Ox
99.0 F 89 16 123/76 96
03/03/25 07:58 03/03/25 07:58 03/03/25 07:58 03/03/25 07:58 03/03/25 07:58
I&O
03/02/25 03/03/25 03/04/25
06:59 06:59 06:59
Intake Total 1320 / 1320 720 / 720
Balance 1320 / 1320 720 / 720
--- NOTE | 2025-03-03 08:28 | W.PN.PUL3 ---
Addendum entered and electronically signed by Vicente Paiz MD 03/03/25 14:49:
Update: IR guided thoracentesis attempted. No abdominal fluid noted on ultrasound and noted to be quite posterior and high. Discussed with patient. We discussed the option of surgical consultation for further evaluation versus conservative
management with IV antibiotics and a short-term follow-up CT chest as outpatient. Patient expressed his desire to be discharged today. Will arrange outpatient follow-up with pulmonary clinic in coming weeks and a follow-up CT chest before
finishing antibiotics to ensure ongoing improvement.
Original Note:
Today's Communication / Plan
-
- IR guided thoracentesis on right side
- Patient can be discharged after the procedure on IV antibiotic
- Outpatient follow-up with pulmonary clinic in about 4 weeks time, will repeat CT chest as outpatient to ensure ongoing improvement.
Assessment
-
54-year-old man with past medical history noted. Admitted with 2-3 day history of shortness of breath, pleuritic type chest pain, fevers.. Generalized malaise. Black stools. Found to have right lower lobe pneumonia possibly necrotizing with
associated pleural effusion. Patient had right-sided chest tube placed with drainage of pleural effusion. Loculated collections were noted and patient was started on intrapleural tPA/DNase. Due to suboptimal evacuation and persistent large
loculation, a second chest tube was placed and the initial chest tube was removed followed by significant improvement in pleural space.
#1. Severe Necrotizing RLL Pneumonia with complicated parapneumonic effusion versus empyema
-Pleural fluid studies show significantly elevated LDH
-s/p Chest tube placement (02/20), followed by tPA/DNAse, followed by a second chest tube (02/27) due to loculations
-Chest tubes have since been removed
-Currently on IV ceftriaxone per infectious disease service.
-O2 support as needed
-Sputum culture showed patricia
-MRSA screening negative
-Blood culture negative to date so far
-Influenza negative
-COVID-negative
-F/u CT 03/03, shows overall improvement but persistent area of pleural effusion on the right side posteriorly. Met with patient and we discussed about drainage and placement of chest tube. Patient very reluctant to proceed with the third chest
tube and would rather be discharged today. Then we discussed the second option of proceeding with at least 2 thoracentesis to drain and analyze the fluid and if procedure goes smoothly, tentative discharge afterwards on IV antibiotic with plan for
outpatient imaging in 4 weeks time. Patient agreeable. Discussed with IR service, plan for thoracentesis today.
#2. Acute hypoxic respiratory failure, improved
- Due to pneumonia as well as loculated effusion
- Resolved, currently patient is doing well on room air.
Other medical diagnoses:
-Alcohol abuse
-Anxiety
-Hypertension
-GERD
-Former smoker without evidence of COPD
-DVT prophylaxis with Lovenox
Total time spent on this consultation/encounter _55__ minutes which includes review of history, physical exam, medications, laboratory data, personal review of imaging, extensive review of outpatient records, discussion with care team and
respiratory therapy.
Diagnostic Data
CXR 02/24/25- There is stable appearance of the rounded pleural-based density projecting over the lateral right midlung and loculated right-sided pleural effusion.
02/22/25- Stable right-sided chest tube. Tiny right pleural effusion. New. Stable pleural-based rounded density in the lateral mid right lung field consistent with loculated pleural fluid on prior chest CT examination. Right-sided decreased lung
volume. Progressed. Cardiomegaly. Stable
CT CAP 02/19/25- Moderate right pleural effusion. Hypodense pulmonary consolidation/pneumonia in the posterior right lower lobe, raising possibility of parenchymal necrosis. Borderline mediastinal adenopathy.
Fat-containing hernia esophageal hiatus measuring approximately 6 cm. Mild hepatomegaly. Mild fatty infiltration and a few tiny cysts suggested. Mild diverticulosis. No evidence of acute diverticulitis. Mobile intraperitoneal cecum situated in the
left upper quadrant. Constipation with mild to moderate fecal burden in the cecum and ascending colon. The appendix is not identified with certainty. No secondary signs of appendicitis.
ECHO 6/5/25- Left ventricular ejection fraction is 65-70%. Normal regional wall motion. Normal right ventricular size and function. Mild aortic stenosis; peak/mean gradients 29/16 mmHg, calculated DUNG 1.6 cm2. No prior study available for
comparison.
Subjective Data
-
Date of Service:
Date of Service: March 03, 2025
Chief Complaint: Pulmonary Follow Up (Severe pneumonia with complicated parapneumonic effusion)
Subjective:
Patient comfortably sitting in bed, no new symptoms reported.
Review of Systems
Genitourinary: Other (All 14 systems reviewed and negative except as stated above in the history of present illness.)
Objective Data
Data Reviewed
Vital Signs / I&O / Oxygen:
Vital Signs
Temp Pulse Resp BP Pulse Ox
99.0 F 89 16 123/76 96
03/03/25 07:58 03/03/25 07:58 03/03/25 07:58 03/03/25 07:58 03/03/25 07:58
Intake and Output
03/02/25 03/03/25 03/04/25
06:59 06:59 06:59
Intake Total 1320 / 1320 720 / 720
Balance 1320 / 1320 720 / 720
SaO2 96
Nasal Cannula flow liters per 2
minute
Physical Exam
General: Respiratory Distress (n), Comfortable and Good Appetite
HEENT: Normocephalic
Cardiovascular: S1-S2 and Peripheral Edema (n)
Respiratory: Wheeze (n), Crackles (Right base), Non-Labored Respirations and Other (Squeaks heard upon inspiration at RLL)
GI: Soft, Non Distended, Non Tender and Normal Bowel Sounds
Neurology: AO x 3 and Tremors (n)
Skin: Warm, Dry and Good Color
Labs/Micro/Reports
Lab Data
03/03/25 04:55
02/26/25 05:18
[2025-03-03] MEDS: OCEAN, SALINE MIST NASAL ×2 (08:41→14:28)
[2025-03-03] MEDS: COLACE 100 MG PO (08:41)
[2025-03-03] MEDS: PROTONIX 40 MG PO (08:41)
[2025-03-03] MEDS: MIRALAX 17 GRAMS PO (08:41)
[2025-03-03] MEDS: WELLBUTRIN XL (24 hour extended release) 300 MG PO (08:41)
[2025-03-03] MEDS: FOLVITE 1 MG PO (08:41)
[2025-03-03] MEDS: LEXAPRO 20 MG PO (08:41)
[2025-03-03] MEDS: NORVASC 10 MG PO (08:41)
[2025-03-03] MEDS: SENOKOT 8.6 MG PO (08:41)
[2025-03-03] MEDS: CYANOCOBALAMIN 1000 MCG IM (08:42)
[2025-03-03] MEDS: MOTRIN 800 MG PO (08:46)
--- NOTE | 2025-03-03 11:29 | W.PN.ID1 ---
Date of Service
Date of Service: March 03, 2025
Today's Communication
Sign off
Assessment / Plan
Right-sided pneumonia
Suspected pulmonary necrosis (based on CT read)
Leukocytosis
Fever
Anxiety/depression
Hypertension
Alcohol abuse
Recommendations:
Ceftriaxone day #6; day #13 antibiotics
Leukocytosis resolved.
Sputum culture unrevealing thus far, although poor quality specimens consisting mostly of spit. April noted, but sample of poor quality
--> Continue with ceftriaxone 2 g IV q24H, through 03/14/2025
Thereafter, transition to oral cefdinir 300 mg p.o. BID, to continue through 03/28/2025.
Home antibiotic sheet placed on paper chart.
Antibiotic plan in place.
Little more to offer from a Infectious Disease standpoint.
Will see again at your request.
����������������������������������������������������������
Chief Complaint
-: Pneumonia
Subjective / Review of Systems
Review of Systems: No Fever, No Chills and No Cough
Vital Signs / Physical Exam
Vital Signs
Vital Signs
Temp Pulse Resp BP Pulse Ox
99.0 F 89 16 123/76 96
03/03/25 07:58 03/03/25 07:58 03/03/25 07:58 03/03/25 08:41 03/03/25 10:16
Physical Exam
Constitutional: No Acute Distress, Comfortable and Non-toxic
Eyes: Sclera Anicteric
Pulmonary: Non Labored
Gastrointestinal: Non Distended
Skin: Warm and Dry; Negative Rash or Jaundice
Neurological: Awake and Alert
Psychological: Calm
Lines: PICC
Objective Data
Lab Data
Lab Results
03/03/25 04:55
02/26/25 05:18
Estimated Creat Clear > 125 ml/min 02/26/25 05:18
Lactic Acid 1.3 mmol/L (0.7-2.0) 02/19/25 11:23
Total Bilirubin 0.4 mg/dl (0.2-1.3) 02/20/25 11:27
AST 12 U/L (17-59) L 02/20/25 11:27
ALT 13 U/L (0-50) 02/20/25 11:27
Alkaline Phosphatase 81 U/L (38-126) 02/20/25 11:27
Most recent labs reviewed.
Micro Results:
02/20/25 17:30 Fungal Smear - Final
Pleural Fluid No yeast or fungal elements seen.
Fungal Culture - Preliminary
Culture in progress.
Positive cultures are reported as soon as detected.
Final report to follow in four to five weeks.
02/19/25 11:51 Blood Culture - Final
Blood/Venous No Growth - Final Report
02/19/25 11:52 Blood Culture - Final
Blood/Venous No Growth - Final Report
02/20/25 17:30 Body Fluid Culture - Final
Pleural Fluid No Growth After 72 Hours
Gram Stain - Final
02/21/25 13:37 Respiratory Culture - Final
Sputum April albicans
Gram Stain - Final
02/20/25 07:41 Nasal Screen MRSA (PCR) - Final
Nose MRSA not detected - performed by PCR methodology.
02/19/25 11:23 Influenza Types A & B (CJ) - Final
Nasal Swab Negative for Influenza A & B, NAAT
Negative results must be combined with clinical observations
and patient history.
Nucleic Acid Amplification test (NAAT)performed on the
[employer] platform.
Imaging:
03/03/2025 CT chest without contrast: Previous chest tube removed. No pneumothorax. Interval improvement in previous right pleural fluid though still with persistent loculated effusion. Parenchymal consolidation in the posterior right lung base
has improved, though there is a small focus of gas surrounded by parenchymal opacity suggesting parenchymal necrosis. Please see full dictation for additional detail.
02/24/2025 CXR (portable): Stable appearance of the rounded pleural-based density projecting over the lateral right midlung and loculated right-sided pleural effusion. Please see full dictation for additional detail.
02/19/2025 CT chest/abdomen/pelvis: Moderate right pleural effusion. Hypodense pulmonary consolidation/pneumonia in the posterior right lower lobe. Concern for the possibility of parenchymal necrosis is noted. Borderline mediastinal adenopathy.
Mild hepatomegaly. Mild fatty infiltration. Mild diverticulosis without evidence for diverticulitis. Please see full dictation for additional detail.
[2025-03-03] MEDS: ROCEPHIN 2000 MG IV (13:05)
[2025-03-03] MEDS: STERILE WATER FOR INJECTION 20 ML IV (13:05)
[2025-03-03 14:00] VITALS: BP 117/78; BP_SYST 84
--- NOTE | 2025-03-03 15:05 | CM ---
Addendum entered by Jennifer Peralta 03/03/25 15:42:
Per Tejinder: Patient will now be trained at [facility] infusion center.
Original Note:
Patient has been medically cleared for discharge to home with [facility] RN and [facility] infusion services. Tejinder, [facility] liaison, reported that patient will be trained for med administration in his home for afternoon dose of Rocephin on
03/04/25. Equipment and medication to be delivered. Patient said he and brother (also to be trained) will be home all day. Patient has [facility] phone number. Patient has arranged for transport home.
== END 2025-03-03 15:49 | disposition home health service (06) | DRG 871 ==
LOC: 2 NORTH 15:22
PROVIDERS: Hospitalist; Internal Medicine Hematology & Oncology; Nurse Practitioner Family; Nurse Practitioner Gerontology; Radiology Vascular & Interventional Radiology; Registered Nurse; ADMITTING PHYSICIAN Internal Medicine; ATTENDING PHYSICIAN Hospitalist; CONSULT PHYSICIAN Internal Medicine; CONSULT PHYSICIAN Internal Medicine Critical Care Medicine; CONSULT PHYSICIAN Internal Medicine Gastroenterology; CONSULT PHYSICIAN Internal Medicine Infectious Disease; CONSULT PHYSICIAN Otolaryngology; EMERGENCY PHYSICIAN Emergency Medicine; FAMILY PHYSICIAN Student in an Organized Health Care Education/Training Program; OTHER PHYSICIAN Internal Medicine Hematology & Oncology
PROC: 0W9930Z Drainage of Right Pleural Cavity with Drainage Device, Percutaneous Approach (ICD-10-PCS; 2025-02-20)
PROC: 3E0L317 Introduction of Other Thrombolytic into Pleural Cavity, Percutaneous Approach (ICD-10-PCS; 2025-02-23)
DX: A41.9 Sepsis, unspecified organism (principal); J69.0 Pneumonitis due to inhalation of food and vomit; J96.01 Acute respiratory failure with hypoxia; J86.9 Pyothorax without fistula; D62 Acute posthemorrhagic anemia; K92.2 Gastrointestinal hemorrhage, unspecified; E87.1 Hypo-osmolality and hyponatremia; J90 Pleural effusion, not elsewhere classified; Z11.52 Encounter for screening for COVID-19; Z87.891 Personal history of nicotine dependence; E86.1 Hypovolemia; E87.6 Hypokalemia; R63.0 Anorexia; F41.9 Anxiety disorder, unspecified; I10 Essential (primary) hypertension; K21.9 Gastro-esophageal reflux disease without esophagitis; K59.00 Constipation, unspecified; K59.03 Drug induced constipation; T40.2X5A Adverse effect of other opioids, initial encounter; F10.10 Alcohol abuse, uncomplicated; E66.09 Other obesity due to excess calories; Z68.29 Body mass index [BMI] 29.0-29.9, adult
CPT/HCPCS: 88305; 32557; 32561; 32562; 71045; 71046; 71250; 71260; 74177; 76604; 80048; 80053; 82040; 82150; 82607; 82728; 82746; 82945; 83010; 83540; 83550; 83605; 83615; 83690; 83735; 83880; 83921; 83986; 84132; 84155; 84157; 84478; 84484; 85014; 85018; 85025; 85027; 85045; 86078; 86850; 86900; 86901; 86920; 87015; 87040; 87070; 87102; 87205; 87206; 87502; 87641; 87811; 88112; 89051; 93005; 93306; 94640; 96374; 96375; 97116; 97163; 97530; 99152; 99153; 99291; C1729; C1769; J2997; P9016; Q9967